=== PATIENT | female | born 1960 | race Caucasian/White ===

== ENCOUNTER 2016-09-07 12:18 | Inpatient (IN) | payer OTHER, SELFPAY ==
--- NOTE | 2016-09-07 12:54 | ERPHSYRPT ---
- History of Present Illness Time Seen by Provider: 09/07/16 12:47 Source: patient Exam Limitations: no limitations Patient Subjective Stated Complaint: FEVER FOR 3 DAYS Triage Nursing Assessment: FEVER AT HOME FOR 3 DAYS. BODY ACHES. NAUSEA WITH NO VOMITING. NO DIARRHEA. MOIST ORAL MEMBRANES Physician History: The patient is a 56-year-old female with her complaining of increasing shortness of breath for 3 days. She did not receive her influenza vaccine because she is allergic to eggs. Her was diagnosed with influenza A 4 days ago. She also complains of a fever for 3 days. She has a past medical history of COPD, diabetes, hyperlipidemia, and asthma. She used to smoke. Timing/Duration: day(s) (3) Fever Severity: moderate Fever Therapy VP OF TECHNOLOGY: none Associated Symptoms: cough, muscle aches, shortness of breath Allergies/Adverse Reactions: NSAIDS (Non-Steroidal Anti-Inflamma Allergy (Verified 09/07/16 12:28) facial swelling aspirin Adverse Reaction (Verified 09/07/16 12:28) facial swelling egg Adverse Reaction (Verified 09/07/16 12:28) Hives ibuprofen Adverse Reaction (Verified 09/07/16 12:28) facial swelling Home Medications: Pravastatin Sodium 40 mg PO DAILY 05/15/15 [History] Furosemide 20 mg [Lasix 20 mg] 20 mg PO DAILY 03/16/16 [History] Potassium Chloride 8 meq PO DAILY 03/16/16 [History] Albuterol Sulfate [Proair Hfa] 2 puffs PO UD PRN 03/17/16 [History] Insulin Aspart [Novolog Flexpen] 0 unit SQ UD 09/07/16 [History] Insulin Glargine,Hum.rec.anlog [Lantus Solostar] 40 unit SQ QAM 09/07/16 [ History] Hx Tetanus, Diphtheria Vaccination/Date Given: Yes Hx Influenza Vaccination/Date Given: No Hx Pneumococcal Vaccination/Date Given: No Immunizations Up to Date: Yes - Review of Systems Constitutional: Fever Eyes: No Symptoms Ears, Nose, & Throat: Nose Congestion, Throat Pain Respiratory: Cough, Dyspnea Cardiac: No Chest Pain, No Edema, No Syncope Abdominal/Gastrointestinal: No Abdominal Pain, No Nausea, No Vomiting, No Diarrhea Genitourinary Symptoms: No Dysuria Musculoskeletal: No Back Pain, No Neck Pain Skin: No Rash Neurological: No Dizziness, No Focal Weakness, No Sensory Changes Psychological: No Symptoms Endocrine: No Symptoms Hematologic/Lymphatic: No Symptoms Immunological/Allergic: No Symptoms All Other Systems: Reviewed and Negative - Past Medical History Pertinent Past Medical History: Yes Neurological History: Migraines ENT History: No Pertinent History Cardiac History: No Pertinent History, High Cholesterol Respiratory History: Asthma, Pneumonia, Other Endocrine Medical History: Diabetes Type II Musculoskeletal History: Osteoarthritis GI Medical History: No Pertinent History History: No Pertinent History Psycho-Social History: No Pertinent History Female Reproductive Disorders: No Pertinent History Other Medical History: HAS SEASONAL ALLERGIES - Past Surgical History Past Surgical History: Yes Neuro Surgical History: No Pertinent History Cardiac: No Pertinent History Respiratory: Other Gastrointestinal: No Pertinent History Genitourinary: No Pertinent History Musculoskeletal: No Pertinent History Female Surgical History: Section Other Surgical History: csection x2. sinus surgery x5 - Social History Smoking Status: Current every day smoker How long have you smoked: 40 years Exposure to second hand smoke: No Drug Use: none Patient Lives Alone: No - Nursing Vital Signs Nursing Vital Signs: Initial Vital Signs Temperature 102.9 F Temperature Source Oral Pulse Rate 95 Respiratory Rate 18 Blood Pressure [] 132/62 Pain Intensity 0 - Physical Exam General Appearance: mild distress Eye Exam: PERRL/EOMI ENT Exam: nasal congestion, pharyngeal erythema Neck Exam: supple, full range of motion, No meningismus Respiratory Exam: decreased breath sounds, wheezing Cardiovascular/Chest Exam: normal heart sounds, regular rate/rhythm, No murmur, No edema Gastrointestinal/Abdominal Exam: soft, non tender, no distention Pelvic Exam: not done Rectal Exam: not done Extremity Exam: non-tender, normal range of motion, normal inspection, normal capillary refill Neurologic Exam: alert, oriented x 3, cooperative, business test analyst II-XII nml as tested, normal mood/affect, sensation nml, No motor deficits Skin Exam: normal color, warm, dry, No rash SpO2 Interpretation: borderline oxygenation SpO2: 87 Oxygen Delivery: Room Air - Radiology Exams Chest X-ray Interpretation: Teleradiologist Report, Infiltrates (infiltrates/ atelecstasis in lingula and RLL per Dr Buck.) Ordered Tests: Active Orders 24 hr Category Date Time Status IV Insertion STAT Care 09/07/16 12:57 Active Oxygen-ED Only NASAL CANNULA 2 lpm Care 09/07/16 12:57 Active CHEST 2 VIEWS (PA AND LAT) Stat Exams 09/07/16 12:57 Completed CBC W DIFF Stat Lab 09/07/16 13:37 Completed CMP Stat Lab 09/07/16 12:57 Completed Manual Differential NC Stat Lab 09/07/16 13:37 Completed TROPONIN Stat Lab 09/07/16 12:57 Completed Respiratory Nebulizer STAT RT 09/07/16 12:58 Completed Medication Summary Generic Name Dose Route Start Last Admin Trade Name Freq PRN Reason Stop Dose Admin Ceftriaxone Sodium/Dextrose 50 mls @ 100 mls/hr 09/07/16 14:28 09/07/16 14:32 Rocephin 1 Gm-D5w 50 Ml Bag IV 09/07/16 14:57 100 mls/hr STAT ONE Administration Discontinued Medications Generic Name Dose Route Start Last Admin Trade Name Freq PRN Reason Stop Dose Admin Albuterol/Ipratropium 3 ml 09/07/16 12:57 09/07/16 13:24 Duoneb 0.5-3 Mg/3 Ml Neb IH 09/07/16 12:58 3 ml STAT ONE Administration Albuterol/Ipratropium Confirm 09/07/16 13:23 Duoneb 0.5-3 Mg/3 Ml Neb Administered 09/07/16 13:24 Dose 3 ml IH .STK-MED ONE Ceftriaxone Sodium/Dextrose Confirm 09/07/16 14:30 Rocephin 1 Gm-D5w 50 Ml Bag Administered 09/07/16 14:31 Dose 50 mls @ ud IV .STK-MED ONE Methylprednisolone Sodium Succinate 125 mg 09/07/16 12:57 09/07/16 13:06 Solu-Medrol 125 Mg IV 09/07/16 12:58 125 mg STAT ONE Administration Methylprednisolone Sodium Succinate Confirm 09/07/16 13:05 Solu-Medrol 125 Mg Administered 09/07/16 13:06 Dose 125 mg .ROUTE .STK-MED ONE Lab/Rad Data: Laboratory Result Diagrams 09/07/16 13:37 09/07/16 12:57 Laboratory Results 09/07/16 09/07/16 09/07/16 Range/Units 13:37 12:57 12:35 WBC 8.9 (4.0-10.5) K/mm3 RBC 5.79 H (4.1-5.4) M/mm3 Hgb 11.0 L (12.0-16.0) gm/dl Hct 34.7 L (35-47) % MCV 59.9 L (78-100) fl MCH 18.9 L (26-32) pg MCHC 31.7 L (32-36) g/dl RDW 19.9 H (11.5-14.0) % Plt Count 193 (150-450) K/mm3 Segmented Neutrophils 55 (36.0-66.0) % Band Neutrophils 8 H (0.0-2.0) % Lymphocytes (Manual) 25 (24-44) % Monocytes (Manual) 12 (0.0-12.0) % Platelet Estimate NORMAL (NORMAL) Poikilocytosis 1+ Anisocytosis 1+ Ovalocytes 1+ Sodium 138 (136-145) mEq/L Potassium 4.2 (3.5-5.1) mEq/L Chloride 103 (98-107) mEq/L Carbon Dioxide 25.2 (21-32) mEq/L Anion Gap 13.5 (5-15) MEQ/L BUN 13 (9-20) mg/dL Creatinine 0.92 (0.55-1.30) mg/dl Estimated GFR > 60 ML/MIN Glucose 173 H (70-110) MG/DL Calcium 7.9 L (8.5-10.1) mg/dL Total Bilirubin 0.2 (0.2-1.0) mg/dL AST 25 (15-37) U/L ALT 20 (12-78) U/L Alkaline Phosphatase 93 (46-116) U/L Troponin I < 0.017 (0.000-0.056) ng/ml Serum Total Protein 7.1 (6.4-8.2) gm/dL Albumin 3.2 L (3.4-5.0) g/dL Influenza Type A Ag NEGATIVE (NEGATIVE) Influenza Type B Ag NEGATIVE (NEGATIVE) RSV (PCR) NEGATIVE (Negative) - Progress Progress: improved Progress Note: 09/07/16 15:09 Pt is feeling better but O2 sats on RA dropped to 81%. Dr Zamudio consulted and pt to be admitted. Discussed with : Robb (admits) Counseled pt/family regarding: lab results, diagnosis, rad results - Departure Time of Disposition: 14:27 Departure Disposition: Observation Clinical Impression: Infiltrate noted on imaging study, Dyspnea Condition: Stable Critical Care Time: No Referrals: FRANKI FRENCH [Primary Care Provider] - Prescriptions: Azithromycin [Azithromycin 250 mg Pack] 250 mg PO UD #6 tablet
[2016-09-07] MEDS ORDERED: DUONEB 0.5-3 MG/3 ml Neb IH ONE ×2 (12:57→13:23)
[2016-09-07] MEDS ORDERED: solu-MEDROL 125 MG IV ONE (12:57)
[2016-09-07] MEDS ORDERED: solu-MEDROL 125 MG ONE (13:05)
[2016-09-07 13:15] LABS: ALBUMIN 3.2 g/dL (3.4-5.0); ALKALINE PHOSPHATASE 93 U/L (46-116); ANION GAP 13.5 MEQ/L (5-15); BILIRUBIN,TOTAL 0.2 mg/dL (0.2-1.0); BLOOD UREA NITROGEN 13 mg/dL (9-20); CHLORIDE 103 mEq/L (98-107); Carbon Dioxide 25.2 mEq/L (21-32); Glucose 173 MG/DL (70-110); Potassium 4.2 mEq/L (3.5-5.1); SGOT/AST 25 U/L (15-37); SGPT/ALT 20 U/L (12-78); SODIUM 138 mEq/L (136-145); Total Protein 7.1 gm/dL (6.4-8.2)
--- NOTE | 2016-09-07 13:19 | XRAY ---
Indication: Short of breath and chest tightness. Comparison: March 16, 2016. PA/lateral chest demonstrates new lingular and to a lesser degree right lower lobe infiltrates/atelectasis without consolidation or large effusion. Remaining heart and bony thorax unremarkable.
[2016-09-07 13:23] LABS: TROPONIN < 0.017 ng/ml (0.000-0.056)
[2016-09-07 13:40] LABS: Mean Cell Volume 59.9 fl (78-100); Platelet Count 193 K/mm3 (150-450); Red Blood Count 5.79 M/mm3 (4.1-5.4); Red Cell Distribution Width 19.9 % (11.5-14.0); White Blood Count 8.9 K/mm3 (4.0-10.5)
[2016-09-07 13:42] LABS: Mean Corpuscular Hemoglobin 18.9 pg (26-32)
[2016-09-07 14:05] LABS: BAND 8 % (0.0-2.0); Total Cells Counted 100
[2016-09-07 14:06] LABS: ANISOCYTOSIS 1+; Ovalocytes 1+; Platelet Estimate NORMAL (NORMAL); Poikilocytosis 1+
[2016-09-07] MEDS ORDERED: ROCEPHIN 1 Gm-D5w 50 ml Bag** 50 ML IV ONE ×2 (14:28→14:30)
[2016-09-07] MEDS ORDERED: TYLENOL EXTRA STRENGTH 500 MG PO STA (14:57)
[2016-09-07] MEDS ORDERED: TYLENOL EXTRA STRENGTH 500 MG ONE (15:00)
[2016-09-07] MEDS ORDERED: PROVENTIL 2.5 MG/3 ML NEB IH PRN (15:47)
[2016-09-07] MEDS ORDERED: TYLENOL 325 MG PO PRN (15:47)
[2016-09-07] MEDS: Zithromax 500 MG/ 250 ML NaCl Premix 250 ML IV SCH (16:35)
[2016-09-07] MEDS ORDERED: Phenergan 25 MG INJ IV PRN (16:46)
[2016-09-07] MEDS: ENOXAPARIN SODIUM SQ SCH (17:04)
[2016-09-07] MEDS: DUONEB 0.5-3 MG/3 ml Neb IH SCH (17:33)
[2016-09-07] MEDS: solu-MEDROL 125 MG IV SCH ×2 (17:41→23:55)
[2016-09-07] MEDS: NON-FORMULARY ITEM IH SCH (21:24)
[2016-09-07] MEDS: NovoLOG Insulin SQ PRN (21:25)
[2016-09-07] MEDS ORDERED: MEDROL 4 MG MC SCH (22:00)
[2016-09-07] MEDS ORDERED: Cipro 500 MG MC SCH (22:00)
[2016-09-08] MEDS: DUONEB 0.5-3 MG/3 ml Neb IH SCH ×4 (00:38→19:36)
[2016-09-08 05:41] LABS: Mean Cell Volume 59.4 fl (78-100); Platelet Count 179 K/mm3 (150-450); Red Blood Count 5.94 M/mm3 (4.1-5.4); Red Cell Distribution Width 19.9 % (11.5-14.0); White Blood Count 7.8 K/mm3 (4.0-10.5)
[2016-09-08 05:49] LABS: Mean Corpuscular Hemoglobin 18.8 pg (26-32)
[2016-09-08] MEDS: solu-MEDROL 125 MG IV SCH ×3 (06:02→18:44)
[2016-09-08 06:03] LABS: ANION GAP 10.2 MEQ/L (5-15); BLOOD UREA NITROGEN 15 mg/dL (9-20); CHLORIDE 104 mEq/L (98-107); Glucose 212 MG/DL (70-110); Potassium 4.4 mEq/L (3.5-5.1); SODIUM 140 mEq/L (136-145)
[2016-09-08 06:59] LABS: Total Cells Counted 100
[2016-09-08 07:00] LABS: ANISOCYTOSIS 1+; Ovalocytes 1+; Poikilocytosis 1+; Polychromasia 1+
[2016-09-08 07:03] LABS: Platelet Estimate NORMAL (NORMAL)
--- NOTE | 2016-09-08 07:48 | HP ---
HISTORY OF PRESENT ILLNESS: This is a 56 year-old woman who presented to the emergency department. She reports that her recently had influenza A and she started having nausea, headache, high fever and cough two days ago. She also had body ache. She has a history of asthma and chronic obstructive pulmonary disease she reports and reports using Albuterol inhaler as needed. She was brought to the emergency department for increasing shortness of breath. In the emergency department she was found to be hypoxic on room air to 87% and was unable to be weaned off 2 liters of oxygen so she was admitted for further evaluation and treatment. REVIEW OF SYSTEMS: She denies chest pain. She has not had any vomiting today. She feels hungry and would like to eat. She has had a little bit of swelling in her lower legs, had some dry skin over her lower legs. PAST MEDICAL HISTORY: Diabetes mellitus type 2, asthma, chronic obstructive pulmonary disease, obesity, history of sinus polyps, back pain. PAST SURGICAL HISTORY: section x2. Five sinus surgeries. Leg surgery. MEDICATIONS: Albuterol 2 puffs as needed, ciprofloxacin mixed with methylprednisolone crushed and uses a nasal saline to irrigate post sinus surgery, Furosemide 40 mg p.o. daily, NovoLog 15 units before meals if her sugar is above 120, Lantus 40 units subcutaneously q.a.m., potassium chloride 8 mEq p.o. daily, pravastatin 80 mg p.o. daily. ALLERGIES: EGGS, IBUPROFEN, ASPIRIN, NSAIDS. SOCIAL HISTORY: She is and lives with her . She usually smokes one pack per day but has not smoked for the past two days. She denies any alcohol use. FAMILY HISTORY: Her mother is living and has diabetes. Her father is and was an alcoholic and had cirrhosis. PHYSICAL EXAMINATION: VITAL SIGNS: Temperature current 102.1F, temperature max 102.9F, heart rate 94 to 105, respiratory rate 18 to 22, blood pressure 113 to 132 over 54 to 62, weight 110 kg. Oxygen saturation 92% on 2 liters nasal cannula. GENERAL: The patient is a pleasant talkative lady sitting up in bed in no acute distress. CVS: She has a regular rate and rhythm. No murmurs, gallops or rubs. CHEST: She has scattered wheezes throughout, equal breath sounds. No crackles. ABDOMEN: Soft, nontender, nondistended. EXTREMITIES: Trace edema bilaterally, dry skin. No clubbing, cyanosis or edema. LABORATORY DATA AND TESTS: Labs on admission: White blood cell count was 8.9, hemoglobin 11.0, differential was 55% neutrophils, 8% bands. Glucose 173, calcium 7.9, albumen 3.2. Influenza A/B and respiratory syncytial virus were negative. Chest x-ray was read as new lingular and right lower lobe infiltrate. ASSESSMENT AND PLAN: 1) MULTILOBAR PNEUMONIA: She has been started on ceftriaxone and azithromycin and will continue with these. I will check a CBC in the morning. I do not see any blood cultures that have been drawn so will have the blood cultures drawn. Will continue oxygen as needed. 2) CHRONIC OBSTRUCTIVE PULMONARY DISEASE EXACERBATION: She has been started on IV steroid, will continue with antibiotics, steroids and DuoNeb every six hours. 3) DIABETES MELLITUS TYPE 2: Will continue with her home insulin doses, diabetic diet and check hemoglobin A1C. 4) DEEP VENOUS THROMBOSIS PROPHYLAXIS: Will start her on Lovenox 40 mg subcutaneously daily.
[2016-09-08] MEDS: Lantus Insulin SQ SCH (08:05)
--- NOTE | 2016-09-08 09:33 | PCM.NOTE ---
Date and Time: 09/08/16927 Subjective Assessment: She reports that she is starting to feel better and she was able to eat well. She would like to walk a little bit in the hallways. - Review of Systems Constitutional: No Symptoms Eyes: No Symptoms Ears, Nose, & Throat: No Symptoms Respiratory: Cough, Short Of Breath, Wheezing Cardiac: No Symptoms Abdominal/Gastrointestinal: No Symptoms Genitourinary Symptoms: No Symptoms Musculoskeletal: No Symptoms Skin: No Symptoms Objective Exam General Appearance: no apparent distress, alert Neurologic Exam: alert, cooperative, normal mood/affect Skin Exam: normal color, warm, dry, No rash Respiratory Exam: other (scattered wheezes, equal breath sounds, distant breath sounds.) Cardiovascular Exam: regular rate/rhythm, normal heart sounds, No murmur, No friction rub, No gallop Extremity Exam: other (no c/c/e; dry skin) OBJECTIVE DATA Vital Signs: Vital Signs - 24 hr Temp Pulse Resp BP Pulse Ox 09/08/16 07:32 97.9 F 77 20 121/58 98 09/08/16 06:00 67 18 94 L 09/08/16 04:00 98.9 F 70 14 115/60 96 09/08/16 00:41 59 L 18 95 09/08/16 00:00 97.7 F 64 14 111/55 94 L 09/07/16 21:00 98.8 F 78 14 101/54 92 L 09/07/16 20:00 98.8 F 78 14 101/54 92 L 09/07/16 17:36 82 22 93 L 09/07/16 16:00 92 L 09/07/16 15:43 102.1 F 95 H 22 113/54 92 L 09/07/16 15:31 102.1 F 95 H 22 113/54 92 L 09/07/16 15:14 87 L 09/07/16 15:04 94 H 18 129/59 89 L 09/07/16 14:06 95 H 18 132/62 92 L 09/07/16 13:28 88 22 89 L 09/07/16 12:22 102.9 F 105 H 24 153/69 87 L Oxygen-Last 24 hours O2 Percentage 2 Liters = 28% O2 Percentage 2 Liters = 28% O2 Percentage 2 Liters = 28% O2 Percentage 2 Liters = 28% O2 Percentage 2 Liters = 28% O2 Percentage 2 Liters = 28% O2 Percentage 2 Liters = 28% O2 Percentage 2 Liters = 28% O2 Percentage 2 Liters = 28% Pain Assessment - Last Documented Pain Intensity 0 Pain Scale Used FLACC Intake and Output: Intake & Output 09/06/16 09/07/16 09/08/16 09/09/16 06:59 06:59 06:59 06:59 Intake Total 1680 440 Balance 1680 440 Weight 110.677 kg Lab Results: Lab Results-Last 24 Hours 09/07/16 09/08/16 09/08/16 Range/Units 16:42 05:25 05:25 WBC 7.8 (4.0-10.5) K/mm3 RBC 5.94 H (4.1-5.4) M/mm3 Hgb 11.2 L (12.0-16.0) gm/dl Hct 35.3 (35-47) % MCV 59.4 L (78-100) fl MCH 18.8 L (26-32) pg MCHC 31.7 L (32-36) g/dl RDW 19.9 H (11.5-14.0) % Plt Count 179 (150-450) K/mm3 Segmented Neutrophils 81 H (36.0-66.0) % Lymphocytes (Manual) 16 L (24-44) % Monocytes (Manual) 3 (0.0-12.0) % Platelet Estimate NORMAL (NORMAL) Polychromasia 1+ Poikilocytosis 1+ Anisocytosis 1+ Ovalocytes 1+ Sodium 140 (136-145) mEq/L Potassium 4.4 (3.5-5.1) mEq/L Chloride 104 (98-107) mEq/L Carbon Dioxide 30.0 (21-32) mEq/L Anion Gap 10.2 (5-15) MEQ/L BUN 15 (9-20) mg/dL Creatinine 0.77 (0.55-1.30) mg/dl Estimated GFR > 60 ML/MIN Glucose 212 H (70-110) MG/DL Hemoglobin A1c 6.4 H (4.5-6.2) Calcium 8.7 (8.5-10.1) mg/dL Assessment/Plan (1) Pneumonia Current Visit: Yes Status: Acute Qualifiers: Laterality: right Lung location: lower lobe of lung Assessment & Plan: Continue with IV antibiotics, oxygen and breathing treatments. She is slowly improving. Code(s): J18.9 - PNEUMONIA, UNSPECIFIED ORGANISM (2) COPD with acute exacerbation Current Visit: Yes Status: Acute Code(s): J44.1 - CHRONIC OBSTRUCTIVE PULMONARY DISEASE W (ACUTE) EXACERBATION (3) COPD (chronic obstructive pulmonary disease) Current Visit: No Status: Chronic Assessment & Plan: Continue antibiotics and steroids as well as oxygen and breathing treatments. (4) Diabetes type 2, controlled Current Visit: Yes Status: Acute Qualifiers: Diabetes mellitus complication status: without complication Assessment & Plan: Her mcfp blood glucose test was less than 7. Her blood glucoses have been higher here in the hospital most likely due to her infection and the IV steroids. Code(s): E11.9 - TYPE 2 DIABETES MELLITUS WITHOUT COMPLICATIONS (5) Tobacco abuse Current Visit: Yes Status: Acute Assessment & Plan: Patient counseled that she should quit smoking. Code(s): Z72.0 - TOBACCO USE
[2016-09-08] MEDS ORDERED: PNEUMOVAX 23 IM ONE (10:00)
[2016-09-08] MEDS ORDERED: NON-FORMULARY ITEM (Pravastatin Sodium [Pravastatin Sodium] 80 MG) PO SCH (10:00)
[2016-09-08] MEDS ORDERED: INSULIN GLARGINE HUM REC ANLOG 40 UNIT SQ SCH (10:00)
[2016-09-08] MEDS ORDERED: NON-FORMULARY ITEM (Potassium Chloride [Potassium Chloride] 8 MEQ) PO SCH (10:00)
[2016-09-08] MEDS: Lasix 40 MG PO SCH (10:11)
[2016-09-08] MEDS: ZOCOR 20MG PO SCH (10:11)
[2016-09-08] MEDS: Klor Con 10 MEQ PO SCH (10:11)
[2016-09-08] MEDS: ENOXAPARIN SODIUM SQ SCH (10:11)
[2016-09-08] MEDS: ROCEPHIN 1 Gm-D5w 50 ml Bag** 50 ML IV SCH (10:11)
[2016-09-08] MEDS: Zithromax 500 MG/ 250 ML NaCl Premix 250 ML IV SCH (11:11)
[2016-09-08] MEDS: NovoLOG Insulin SQ PRN ×2 (12:35→16:10)
[2016-09-08] MEDS: NON-FORMULARY ITEM IH SCH (22:56)
[2016-09-09] MEDS: solu-MEDROL 125 MG IV SCH ×4 (01:29→18:31)
[2016-09-09] MEDS: DUONEB 0.5-3 MG/3 ml Neb IH SCH ×4 (03:09→19:34)
[2016-09-09] MEDS: NovoLOG Insulin SQ PRN ×3 (08:25→17:02)
[2016-09-09] MEDS: Lantus Insulin SQ SCH (08:26)
--- NOTE | 2016-09-09 09:01 | PCM.NOTE ---
Date and Time: 09/09/16856 Subjective Assessment: She reports she wore oxygen all night but that she has been off this AM and would really like to go home today if she keeps feeling better. Her appetite has been good. She reports she has been able to ambulate in the halls well. - Review of Systems Constitutional: No Symptoms Eyes: No Symptoms Ears, Nose, & Throat: No Symptoms Respiratory: Cough Cardiac: No Symptoms Abdominal/Gastrointestinal: No Symptoms Genitourinary Symptoms: No Symptoms Musculoskeletal: No Symptoms Skin: No Symptoms Objective Exam General Appearance: no apparent distress, alert Neurologic Exam: alert, cooperative, normal mood/affect, other (talkative, smiling) Skin Exam: normal color, warm, dry Respiratory Exam: other (expiratory wheezes at end of exhalation throughout) Cardiovascular Exam: regular rate/rhythm, No murmur, No friction rub, No gallop Gastrointestinal/Abdomen Exam: soft, normal bowel sounds, No tenderness, No distention, No mass Extremity Exam: normal inspection, other (no c/c/e) OBJECTIVE DATA Vital Signs: Vital Signs - 24 hr Temp Pulse Resp BP Pulse Ox 09/09/16 08:00 97.6 F 64 24 180/79 93 L 09/09/16 07:00 71 18 91 L 09/09/16 04:00 16 09/09/16 00:00 98.1 F 67 15 143/65 98 09/08/16 23:55 98.1 F 67 15 143/65 98 09/08/16 20:00 97.8 F 68 15 143/54 96 09/08/16 19:39 66 18 94 L 09/08/16 16:00 19 09/08/16 15:59 98.4 F 65 19 111/51 97 09/08/16 12:00 76 20 87 L 09/08/16 11:56 98.3 F 70 21 106/53 96 Oxygen-Last 24 hours O2 Percentage 2 Liters = 28% O2 Percentage 2 Liters = 28% O2 Percentage 2 Liters = 28% O2 Percentage 2 Liters = 28% Pain Assessment - Last Documented Pain Intensity 0 Pain Scale Used 0-10 Pain Scale Intake and Output: Intake & Output 09/07/16 09/08/16 09/09/16 09/10/16 06:59 06:59 06:59 06:59 Intake Total 1680 2250 Balance 1680 2250 Weight 110.677 kg Lab Results: Accuchecks Date 09/09/16 Date 09/08/16 Date 09/08/16 Time 07:30 Time 16:30 Time 11:30 Accucheck Value: 164 Accucheck Value: 215 Accucheck Value: 290 Assessment/Plan (1) Pneumonia Current Visit: Yes Status: Acute Qualifiers: Laterality: right Lung location: lower lobe of lung Assessment & Plan: Continue IV antibiotics. Code(s): J18.9 - PNEUMONIA, UNSPECIFIED ORGANISM (2) COPD with acute exacerbation Current Visit: Yes Status: Acute Assessment & Plan: Continue with IV steroids and breathing treatments. Code(s): J44.1 - CHRONIC OBSTRUCTIVE PULMONARY DISEASE W (ACUTE) EXACERBATION (3) COPD (chronic obstructive pulmonary disease) Current Visit: No Status: Chronic (4) Diabetes type 2, controlled Current Visit: Yes Status: Acute Qualifiers: Diabetes mellitus complication status: without complication Assessment & Plan: Her blood glucoses are running higher most likely due to steroids as her hgb A1C was <7.0. Code(s): E11.9 - TYPE 2 DIABETES MELLITUS WITHOUT COMPLICATIONS (5) Tobacco abuse Current Visit: Yes Status: Acute Assessment & Plan: Patient counseled that she needs to quit. Code(s): Z72.0 - TOBACCO USE
[2016-09-09] MEDS: Lasix 40 MG PO SCH (09:31)
[2016-09-09] MEDS: ZOCOR 20MG PO SCH (09:31)
[2016-09-09] MEDS: Klor Con 10 MEQ PO SCH (09:31)
[2016-09-09] MEDS: ENOXAPARIN SODIUM SQ SCH (09:32)
[2016-09-09] MEDS: ROCEPHIN 1 Gm-D5w 50 ml Bag** 50 ML IV SCH (09:32)
[2016-09-09] MEDS: Sodium Chloride 0.9% 10 ML FLUSH Syringe IV PRN ×2 (10:00→11:00)
[2016-09-09] MEDS: Zithromax 500 MG/ 250 ML NaCl Premix 250 ML IV SCH (10:16)
[2016-09-09] MEDS: NON-FORMULARY ITEM IH SCH (22:37)
[2016-09-09] MEDS: Sodium Chloride 0.9% 10 ML FLUSH Syringe IV SCH (22:39)
[2016-09-10] MEDS: solu-MEDROL 125 MG IV SCH ×2 (00:58→06:27)
[2016-09-10] MEDS: DUONEB 0.5-3 MG/3 ml Neb IH SCH ×2 (01:53→06:59)
[2016-09-10] MEDS: Sodium Chloride 0.9% 10 ML FLUSH Syringe IV SCH (06:28)
[2016-09-10 07:35] VITALS: O2SAT 94
[2016-09-10] MEDS: Lantus Insulin SQ SCH (08:01)
[2016-09-10] MEDS: NovoLOG Insulin SQ PRN ×2 (08:02→11:27)
[2016-09-10] MEDS: ENOXAPARIN SODIUM SQ SCH (08:02)
[2016-09-10] MEDS: Lasix 40 MG PO SCH (08:03)
[2016-09-10] MEDS: Klor Con 10 MEQ PO SCH (08:03)
[2016-09-10] MEDS: ZOCOR 20MG PO SCH (08:03)
[2016-09-10 11:24] VITALS: BP 138/65; PULSE 58
--- NOTE | 2016-09-10 11:49 | PCM.DS ---
Discharge Summary Date of Admission: 09/07/16 15:26 Admitting Physician: SARI DUMONT Primary Care Provider: SARI DUMONT Allergies Allergies NSAIDS (Non-Steroidal Anti-Inflamma Allergy (Verified 09/07/16 12:28) facial swelling aspirin Adverse Reaction (Verified 09/07/16 12:28) facial swelling egg Adverse Reaction (Verified 09/07/16 12:28) Hives ibuprofen Adverse Reaction (Verified 09/07/16 12:28) facial swelling Hospital Summary - Hospital Course Hospital Course: patient admitted with pneumonia and copd exacerbation, doing much better today at this time. no problems or concerns at this time. - Vitals & Intake/Output Vital Signs: Vital Signs Temperature 97.8 F 09/10/16 11:23 Pulse Rate 58 L 09/10/16 11:23 Respiratory Rate 20 09/10/16 11:23 Blood Pressure 138/65 09/10/16 11:23 O2 Sat by Pulse Oximetry 94 L 09/10/16 11:23 Oxygen-Last Documented O2 Percentage 2 Liters = 28% Intake & Output: Intake & Output 09/07/16 09/08/16 09/09/16 09/10/16 11:59 11:59 11:59 11:59 Intake Total 2120 2290 2600 Balance 2120 2290 2600 Weight 110.677 kg 110.677 kg - Lab Result Diagrams: 09/08/16 05:25 09/08/16 05:25 Lab Results-Last 24 Hrs: Accuchecks Date 09/10/16 Date 09/09/16 Time 16:30 Accucheck Value: 213 Accucheck Value: 192 Micro Results-Entire Visit: Microbiology 09/07/16 17:30 Blood Culture - Preliminary Blood NO GROWTH TO DATE Accuchecks Date 09/10/16 Date 09/09/16 Time 16:30 Accucheck Value: 213 Accucheck Value: 192 - Procedures and Test Procedures and Tests throughout Hospitalization: Therapy Orders & Screens 09/07/16 15:56 RT Screen per Nursing Assess ONCE Comment: Protocol Order Physician Instructions: Greater than 3 points order RT Admission Screen Reason For Exam: Triggered on Admission Diagnosis: Shortness of Breath Diagnosis: Shortness of Breath Pneumonia: No Home O2: No Asthma: Yes CHF: No Home CPAP/BIPAP: No Home Nebs/MDI: Yes Total Points: 9 Smoking Cessation Education ONCE Comment: Diagnosis: Shortness of Breath Smoking Status: Current every day smoker How long have you smoked: 40 years Have you smoked in the past 12 months: Yes Approximately how many cigarettes per day: 20 Do you dip or chew tobacco: No 09/07/16 17:35 Respiratory Nebulizer Comment: ALBUTEROL Q4PRN Diagnosis: Shortness of Breath 09/07/16 19:00 Respiratory Nebulizer Q6H Comment: DUONEB Q6 Diagnosis: Shortness of Breath Discharge Exam General Appearance: no apparent distress, alert Respiratory Exam: normal breath sounds, lungs clear, No respiratory distress Cardiovascular Exam: regular rate/rhythm, normal heart sounds Extremity Exam: normal inspection, normal range of motion Final Diagnosis/Problem List - Final Discharge Diagnosis/Problem (1) COPD with acute exacerbation Current Visit: Yes Status: Acute Assessment & Plan: get an rx for nebulizer machine, steroids and antibiotics (2) Pneumonia Current Visit: Yes Status: Acute - Discharge Disposition: Home, Self-Care Condition: Good Prescriptions: New Amoxicillin/Potassium Clav [Augmentin 500-125 Tablet] 500 mg PO TID #30 tablet Albuterol/Ipratropium 3ml Neb* [DUONEB 0.5-3 MG/3 ml Neb] 3 ml IH Q6HRT # 100 ampul.neb Prednisone 20 mg [Deltasone 20 mg] 20 mg PO UD #18 tablet Nebulizer Accessories [Nebulizer] 1 each UD #1 kit Continue Pravastatin Sodium 80 mg PO DAILY Furosemide 20 mg [Lasix 20 mg] 40 mg PO DAILY Potassium Chloride 8 meq PO DAILY Albuterol Sulfate [Proair Hfa] 2 puffs PO UD PRN PRN Reason: Shortness Of Breath Insulin Aspart [Novolog Flexpen] 0 unit SQ UD Insulin Glargine,Hum.rec.anlog [Lantus Solostar] 40 unit SQ QAM Methylprednisolone 4 mg [Medrol 4 mg] 8 mg IH DAILY Ciprofloxacin HCl 500 mg [Cipro 500 MG] 1,000 mg IH DAILY Instructions: Pneumonia -- Adult, Quit Smoking Follow up with: FRANKI FRENCH [Nurse Practioner] - Forms: Patient Portal Information
== END 2016-09-10 12:05 | disposition home or self-care (01) | DRG 190 ==
LOC: ED 12:18 → MED SURG 15:26 → OBSVTOIN 15:26
PROVIDERS: ADMIT Internal Medicine; ATTEND Internal Medicine
DX: J44.1 Chronic obstructive pulmonary disease with (acute) exacerbation (principal); J18.9 Pneumonia, unspecified organism; E11.9 Type 2 diabetes mellitus without complications; E78.5 Hyperlipidemia, unspecified; J45.909 Unspecified asthma, uncomplicated; F17.200 Nicotine dependence, unspecified, uncomplicated
CPT/HCPCS: 36000; 36415; 71020; 80048; 80053; 82962; 83036; 84484; 85025; 87040; 87631; 90732; 94640; 94760; 96365; 96374; 99285; J0456; J0696; J1650; J2930; A9270-GY

== ENCOUNTER 2017-01-22 13:12 | Observation (INO) | payer OTHER, SELFPAY ==
[2017-01-22] MEDS ORDERED: Sodium Chloride 0.9% 1000 ML 1,000 ML IV SCH (13:15)
[2017-01-22 13:23] LABS: Mean Cell Volume 60.6 fl (78-100); Mean Corpuscular Hemoglobin 19.5 pg (26-32); Mean Platelet Volume 10.7 fl (6-9.5); Platelet Count 277 K/mm3 (150-450); Red Blood Count 6.65 M/mm3 (4.1-5.4)
[2017-01-22 13:32] LABS: Collection Type VOID; VBG BASE EXCESS 5.5 (-2.0-2.0); VBG HCO3- 31.6 meq/L (22-28); VBG HEMOGLOBIN 13.6; VBG O2 SATURATION 71.9 (95-100); VBG POTASSIUM 4.4 (3.5-5.1); VBG pH 7.4 (7.32-7.42)
[2017-01-22 13:33] LABS: ADD URINE CULTURE? YES (NO); Bacteria FEW /HPF (NEGATIVE); Bilirubin NEGATIVE (NEGATIVE); COMPLETE URINE MICROSCOPIC? YES; Glucose NEGATIVE (NEGATIVE); Leukocyte Esterase 2+ (NEGATIVE); VBG CARBOXYHEMOGLOBIN 16.9 % T HGB (0.0-6.9)
[2017-01-22 13:40] LABS: ALBUMIN 4.2 g/dL (3.4-5.0); ALKALINE PHOSPHATASE 97 U/L (46-116); ANION GAP 13.6 MEQ/L (5-15); BLOOD UREA NITROGEN 22 mg/dL (9-20); CHLORIDE 103 mEq/L (98-107); Carbon Dioxide 30.3 mEq/L (21-32); Glucose 100 MG/DL (70-110); Potassium 4.6 mEq/L (3.5-5.1); SGOT/AST 24 U/L (15-37); SGPT/ALT 30 U/L (12-78); SODIUM 142 mEq/L (136-145); Total Protein 7.7 gm/dL (6.4-8.2)
[2017-01-22 13:40] LABS: MAGNESIUM 2.2 mg/dL (1.8-2.4)
--- NOTE | 2017-01-22 13:46 | ERPHSYRPT ---
- History of Present Illness Time Seen by Provider: 01/22/17 13:14 Source: patient, family (), EMS Patient Subjective Stated Complaint: syncopal episode Triage Nursing Assessment: states chronic leg numbness. denies recent fall. states had syncopal episode today and was down on floor for 30 min 'while my daughters were sleeping'. denies pain at present. alert/oriented. chronic cough with clear/yellow sputum. 3+ pitting edema to lower extrem (chronic per pt) Physician History: CC: legs gave out Hx: 56 y/o patient of Dr Dumont was at her home. She has chronic numbness in legs. She has diabetes. She has some increased swelling. She was at home and got up and felt weakness in the legs and fell to the floor without injury. No witnessed seizure activity. Was somewhat disoriented when found. This occurred around 12:30 PM. No headache or chest pain. No hx of this in the past. She has a remote hx of cancer. She has chronic back pain but no fever or chills. No focal weakness. The numbness in her legs is similar to prior. She smokes but only had about 5 cigarettes since 8:30AM. EMS did not not smoke in the house. Accu check was ok. Timing/Duration: today Severity: moderate Allergies/Adverse Reactions: NSAIDS (Non-Steroidal Anti-Inflamma Allergy (Verified 01/22/17 13:21) facial swelling aspirin Adverse Reaction (Verified 01/22/17 13:21) facial swelling egg Adverse Reaction (Verified 01/22/17 13:21) Hives ibuprofen Adverse Reaction (Verified 01/22/17 13:21) facial swelling Home Medications: Furosemide 20 mg [Lasix 20 mg] 20 mg PO DAILY 03/16/16 [History] Potassium Chloride 8 meq PO DAILY 03/16/16 [History] Albuterol Sulfate [Proair Hfa] 2 puffs PO UD PRN 03/17/16 [History] Insulin Aspart [Novolog Flexpen] 0 unit SQ UD 09/07/16 [History] Insulin Glargine,Hum.rec.anlog [Lantus Solostar] 40 unit SQ QAM 09/07/16 [ History] Rosuvastatin Calcium 20 mg PO DAILY 01/22/17 [History] Hx Tetanus, Diphtheria Vaccination/Date Given: Yes Hx Influenza Vaccination/Date Given: No Hx Pneumococcal Vaccination/Date Given: Yes Immunizations Up to Date: Yes - Review of Systems Constitutional: Malaise, No Fever, No Chills Eyes: No Symptoms Ears, Nose, & Throat: No Symptoms Respiratory: Cough, No Dyspnea Cardiac: Edema, Syncope (pre), No Chest Pain Abdominal/Gastrointestinal: No Abdominal Pain, No Nausea, No Vomiting, No Diarrhea Genitourinary Symptoms: No Dysuria Musculoskeletal: Back Pain (chronic), No Neck Pain, No Injury Skin: No Rash Neurological: Parasthesia (chronic legs), No Focal Weakness, No Headache All Other Systems: Reviewed and Negative - Past Medical History Pertinent Past Medical History: Yes Neurological History: Migraines ENT History: No Pertinent History Cardiac History: No Pertinent History, High Cholesterol Respiratory History: Asthma, Pneumonia, Other Endocrine Medical History: Diabetes Type II Musculoskeletal History: Osteoarthritis GI Medical History: No Pertinent History History: No Pertinent History Psycho-Social History: No Pertinent History Female Reproductive Disorders: No Pertinent History Other Medical History: HAS SEASONAL ALLERGIES - Past Surgical History Past Surgical History: Yes Neuro Surgical History: No Pertinent History Cardiac: No Pertinent History Respiratory: Other Gastrointestinal: No Pertinent History Genitourinary: No Pertinent History Musculoskeletal: No Pertinent History Female Surgical History: Section Other Surgical History: csection x2. sinus surgery x6 - Social History Smoking Status: Current every day smoker How long have you smoked: 40 years Exposure to second hand smoke: No Drug Use: none Patient Lives Alone: No (lives at home with family) - Nursing Vital Signs Nursing Vital Signs: Initial Vital Signs Temperature 97.7 F 01/22/17 13:14 Pulse Rate 69 01/22/17 13:14 Respiratory Rate 18 01/22/17 13:14 Blood Pressure 160/78 01/22/17 13:14 O2 Sat by Pulse Oximetry 98 01/22/17 13:14 Pain Scale Pain Intensity 0 - Physical Exam General Appearance: alert Eye Exam: PERRL/EOMI Ears, Nose, Throat Exam: normal ENT inspection, moist mucous membranes Neck Exam: normal inspection, non-tender, supple, No midline tenderness Respiratory Exam: normal breath sounds, lungs clear Cardiovascular Exam: regular rate/rhythm Gastrointestinal/Abdomen Exam: soft, No tenderness, No distention Back Exam: normal inspection, No vertebral tenderness Extremity Exam: pedal edema (2-3+), No calf tenderness Neurologic Exam: alert, oriented x 3, cooperative, sensation nml, No motor deficits Skin Exam: warm, dry, No rash SpO2 Interpretation: normal SpO2: 98 Oxygen Delivery: Room Air - Course Nursing assessment & vital signs reviewed: Yes EKG Interpreted by Me: RATE (60), Sinus Rhythm, NORMAL AXIS, NORMAL INTERVALS ( QTc 458), Right Bundle Branch Block - Radiology Exams cxr X-ray Interpretation: Reviewed by me (CM, prominent lung markings, mild RLL infiltrate) - CT Exams brain CT Interpretation: Negative, Tele-radiologist Report Ordered Tests: Active Orders 24 hr Category Date Time Status Guest Room Inspector STAT Care 01/22/17 13:45 Active Clean Catch Urine Specimen STAT Care 01/22/17 13:14 Active EKG-ER Only STAT Care 01/22/17 13:14 Active IV Insertion STAT Care 01/22/17 13:14 Active Oxygen-ED Only NON-REBREATHER 100% Care 01/22/17 13:38 Active CHEST 1 VIEW (PORTABLE) Stat Exams 01/22/17 13:14 Taken HEAD WITHOUT CONTRAST [CT] Stat Exams 01/22/17 13:36 Taken BLOOD CULTURE Stat Lab 01/22/17 13:10 Received CBC W DIFF Stat Lab 01/22/17 13:14 Completed CK-Creatinine Phosphokinase Stat Lab 01/22/17 13:15 Completed CMP Stat Lab 01/22/17 13:14 Completed CULTURE,URINE Stat Lab 01/22/17 13:20 Received Lactic Acid Stat Lab 01/22/17 13:20 Completed MAGNESIUM Stat Lab 01/22/17 13:15 Completed Manual Differential NC Stat Lab 01/22/17 13:14 Completed NT PRO BNP Stat Lab 01/22/17 13:15 Completed TROPONIN Q3H Lab 01/22/17 13:15 Completed TROPONIN Q3H Lab 01/22/17 16:45 Ordered TROPONIN Q3H Lab 01/22/17 19:45 Ordered TROPONIN Q3H Lab 01/22/17 22:45 Ordered TROPONIN Q3H Lab 01/23/17 01:45 Ordered UA W/ MICROSCOPIC Stat Lab 01/22/17 13:20 Completed Urine Triage Profile Stat Lab 01/22/17 13:15 Completed VENOUS BLOOD GAS Urgent Lab 01/22/17 13:20 Completed Medication Summary Generic Name Dose Route Start Last Admin Trade Name Freq PRN Reason Stop Dose Admin Sodium Chloride 1,000 mls @ 100 mls/hr 01/22/17 13:15 01/22/17 13:27 Sodium Chloride 0.9% 1000 Ml IV 02/21/17 13:14 100 mls/hr .Q10H ABDOUL Administration Discontinued Medications Generic Name Dose Route Start Last Admin Trade Name Torie PRN Reason Stop Dose Admin Ceftriaxone Sodium/Dextrose 1 g in 50 mls @ 100 mls/hr 01/22/17 13:49 14:32 Rocephin 1 Gm-D5w 50 Ml Bag IV 01/22/17 14:18 100 mls/hr STAT STA Administration Ceftriaxone Sodium/Dextrose Confirm 01/22/17 14:31 Rocephin 1 Gm-D5w 50 Ml Bag Administered 01/22/17 14:32 Dose 1 g in 50 mls @ ud IV .K-MED ONE Lab/Rad Data: Laboratory Result Diagrams 01/22/17 13:14 01/22/17 13:14 Laboratory Results 01/22/17 01/22/17 01/22/17 Range/Units 13:20 13:20 13:20 WBC (4.0-10.5) K/mm3 RBC (4.1-5.4) M/mm3 Hgb (12.0-16.0) gm/dl Hct (35-47) % MCV (78-100) fl MCH (26-32) pg MCHC (32-36) g/dl RDW (11.5-14.0) % Plt Count (150-450) K/mm3 MPV (6-9.5) fl Segmented Neutrophils (36.0-66.0) % Band Neutrophils (0.0-2.0) % Lymphocytes (Manual) (24-44) % Monocytes (Manual) (0.0-12.0) % Differential Comment Platelet Estimate (NORMAL) Poikilocytosis Anisocytosis VBG pH 7.40 (7.32-7.42) VBG pCO2 at Pat Temp 51 (42-55) mm/Hg VBG pO2 at Pat Temp 30 (25-40) mm/Hg VBG HCO3 31.6 H* (22-28) meq/L VBG O2 Sat (Adonis) 71.9 L (95-100) VBG Base Excess 5.5 H (-2.0-2.0) VBG Hemoglobin 13.6 VBG Carboxyhemoglobin 16.9 H* (0.0-6.9) % T HGB POC Potassium 4.4 (3.5-5.1) Sodium (136-145) mEq/L Potassium (3.5-5.1) mEq/L Chloride (98-107) mEq/L Carbon Dioxide (21-32) mEq/L Anion Gap (5-15) MEQ/L BUN (9-20) mg/dL Creatinine (0.55-1.30) mg/dl Estimated GFR ML/MIN Glucose (70-110) MG/DL Lactic Acid 1.6 (0.4-2.0) Calcium (8.5-10.1) mg/dL Magnesium (1.8-2.4) mg/dL Total Bilirubin (0.2-1.0) mg/dL AST (15-37) U/L ALT (12-78) U/L Alkaline Phosphatase (46-116) U/L Creatine Kinase (26-192) U/L Troponin I (0.000-0.056) ng/ml NT-Pro-B Natriuret Pep (0-125) pg/ml Serum Total Protein (6.4-8.2) gm/dL Albumin (3.4-5.0) g/dL Ur Collection Type VOID Urine Color YELLOW (YELLOW) Urine Appearance CLEAR (CLEAR) Urine pH 7.0 (5-6) Ur Specific [place] 1.005 (1.005-1.025) Urine Protein NEGATIVE (Negative) Urine Ketones NEGATIVE (NEGATIVE) Urine Blood 5-10 (0-5) Hao/ul Urine Nitrite NEGATIVE (NEGATIVE) Urine Bilirubin NEGATIVE (NEGATIVE) Urine Urobilinogen NORMAL (0-1) mg/dL Ur Leukocyte Esterase 2+ (NEGATIVE) Urine Microscopic RBC 0-2 (0-2) /HPF Urine Microscopic WBC 10-15 (0-5) /HPF Urine Bacteria FEW (NEGATIVE) /HPF Urine Glucose NEGATIVE (NEGATIVE) mg/dL Urine Opiates Level (NEGATIVE) Ur Methadone (NEGATIVE) Urine Barbiturates (NEGATIVE) Ur Phencyclidine (PCP) (NEGATIVE) Urine Amphetamine (NEGATIVE) U Benzodiazepine Level (NEGATIVE) Urine Cocaine (NEGATIVE) Urine Marijuana (THC) (NEGATIVE) Specimen Received 01/22/17 1320 01/22/17 01/22/1701/22/17 Range/Units 13:15 13:15 13:15 WBC (4.0-10.5) K/mm3 RBC (4.1-5.4) M/mm3 Hgb (12.0-16.0) gm/dl Hct (35-47) % MCV (78-100) fl MCH (26-32) pg MCHC (32-36) g/dl RDW (11.5-14.0) % Plt Count (150-450) K/mm3 MPV (6-9.5) fl Segmented Neutrophils (36.0-66.0) % Band Neutrophils (0.0-2.0) % Lymphocytes (Manual) (24-44) % Monocytes (Manual) (0.0-12.0) % Differential Comment Platelet Estimate (NORMAL) Poikilocytosis Anisocytosis VBG pH (7.32-7.42) VBG pCO2 at Pat Temp (42-55) mm/Hg VBG pO2 at Pat Temp (25-40) mm/Hg VBG HCO3 (22-28) meq/L VBG O2 Sat (Adonis) (95-100) VBG Base Excess (-2.0-2.0) VBG Hemoglobin VBG Carboxyhemoglobin (0.0-6.9) % T HGB POC Potassium (3.5-5.1) Sodium (136-145) mEq/L Potassium (3.5-5.1) mEq/L Chloride (98-107) mEq/L Carbon Dioxide (21-32) mEq/L Anion Gap (5-15) MEQ/L BUN (9-20) mg/dL Creatinine (0.55-1.30) mg/dl Estimated GFR ML/MIN Glucose (70-110) MG/DL Lactic Acid (0.4-2.0) Calcium (8.5-10.1) mg/dL Magnesium 2.2 (1.8-2.4) mg/dL Total Bilirubin (0.2-1.0) mg/dL AST (15-37) U/L ALT (12-78) U/L Alkaline Phosphatase (46-116) U/L Creatine Kinase 70 (26-192) U/L Troponin I < 0.017 (0.000-0.056) ng/ml NT-Pro-B Natriuret Pep (0-125) pg/ml Serum Total Protein (6.4-8.2) gm/dL Albumin (3.4-5.0) g/dL Ur Collection Type Urine Color (YELLOW) Urine Appearance (CLEAR) Urine pH (5-6) Ur Specific [place] (1.005-1.025) Urine Protein (Negative) Urine Ketones (NEGATIVE) Urine Blood (0-5) Hao/ul Urine Nitrite (NEGATIVE) Urine Bilirubin (NEGATIVE) Urine Urobilinogen (0-1) mg/dL Ur Leukocyte Esterase (NEGATIVE) Urine Microscopic RBC (0-2) /HPF Urine Microscopic WBC (0-5) /HPF Urine Bacteria (NEGATIVE) /HPF Urine Glucose (NEGATIVE) mg/dL Urine Opiates Level NEG. (NEGATIVE) Ur Methadone NEG. (NEGATIVE) Urine Barbiturates NEG. (NEGATIVE) Ur Phencyclidine (PCP) NEG. (NEGATIVE) Urine Amphetamine NEG. (NEGATIVE) U Benzodiazepine Level NEG. (NEGATIVE) Urine Cocaine NEG. (NEGATIVE) Urine Marijuana (THC) NEG. (NEGATIVE) Specimen Received 01/22/17 01/22/17 01/22/17 Range/Units 13:15 13:14 13:14 WBC 10.0 (4.0-10.5) K/mm3 RBC 6.65 H* (4.1-5.4) M/mm3 Hgb 13.0 (12.0-16.0) gm/dl Hct 40.3 (35-47) % MCV 60.6 L (78-100) fl MCH 19.5 L (26-32) pg MCHC 32.3 (32-36) g/dl RDW 20.0 H (11.5-14.0) % Plt Count 277 (150-450) K/mm3 MPV 10.7 H (6-9.5) fl Segmented Neutrophils 67 H (36.0-66.0) % Band Neutrophils 1 (0.0-2.0) % Lymphocytes (Manual) 25 (24-44) % Monocytes (Manual) 7 (0.0-12.0) % Differential Comment ABNORMAL Platelet Estimate NORMAL (NORMAL) Poikilocytosis 1+ Anisocytosis 2+ VBG pH (7.32-7.42) VBG pCO2 at Pat Temp (42-55) mm/Hg VBG pO2 at Pat Temp (25-40) mm/Hg VBG HCO3 (22-28) meq/L VBG O2 Sat (Adonis) (95-100) VBG Base Excess (-2.0-2.0) VBG Hemoglobin VBG Carboxyhemoglobin (0.0-6.9) % T HGB POC Potassium (3.5-5.1) Sodium 142 (136-145) mEq/L Potassium 4.6 (3.5-5.1) mEq/L Chloride 103 (98-107) mEq/L Carbon Dioxide 30.3 (21-32) mEq/L Anion Gap 13.6 (5-15) MEQ/L BUN 22 H (9-20) mg/dL Creatinine 0.76 (0.55-1.30) mg/dl Estimated GFR > 60 ML/MIN Glucose 100 (70-110) MG/DL Lactic Acid (0.4-2.0) Calcium 9.6 (8.5-10.1) mg/dL Magnesium (1.8-2.4) mg/dL Total Bilirubin 0.50 (0.2-1.0) mg/dL AST 24 (15-37) U/L ALT 30 (12-78) U/L Alkaline Phosphatase 97 (46-116) U/L Creatine Kinase (26-192) U/L Troponin I (0.000-0.056) ng/ml NT-Pro-B Natriuret Pep 32 (0-125) pg/ml Serum Total Protein 7.7 (6.4-8.2) gm/dL Albumin 4.2 (3.4-5.0) g/dL Ur Collection Type Urine Color (YELLOW) Urine Appearance (CLEAR) Urine pH (5-6) Ur Specific [place] (1.005-1.025) Urine Protein (Negative) Urine Ketones (NEGATIVE) Urine Blood (0-5) Hao/ul Urine Nitrite (NEGATIVE) Urine Bilirubin (NEGATIVE) Urine Urobilinogen (0-1) mg/dL Ur Leukocyte Esterase (NEGATIVE) Urine Microscopic RBC (0-2) /HPF Urine Microscopic WBC (0-5) /HPF Urine Bacteria (NEGATIVE) /HPF Urine Glucose (NEGATIVE) mg/dL Urine Opiates Level (NEGATIVE) Ur Methadone (NEGATIVE) Urine Barbiturates (NEGATIVE) Ur Phencyclidine (PCP) (NEGATIVE) Urine Amphetamine (NEGATIVE) U Benzodiazepine Level (NEGATIVE) Urine Cocaine (NEGATIVE) Urine Marijuana (THC) (NEGATIVE) Specimen Received - Progress Progress Note: 01/22/17 13:46 Neuro exam is nonfocal. Normal rectal tone. 1+ bilateral MSR's patella. ROM equal. Sensation grossly intact. CO elevated. NRB oxygen applied. Advised family to have house checked and no pets or family should be in the house until checked and cleared. FD went to check out the house. 01/22/17 14:35 CT brain: stella 2:30 PM 01/22/2017: No comps. Marked B/L pansinusitis. O/W negative CT head. House was checked per FD and no CO. Pt denies suicidality. She does smoke? Monitor CO from FD shows current CO 13%. Paged Dr Muñoz for [facility] for admission. Counseled pt/family regarding: lab results, diagnosis, need for follow-up, rad results, smoking cessation - Departure Time of Disposition: 14:57 Departure Disposition: Observation (TEle) Clinical Impression: Diabetes type 2, controlled, Carbon monoxide poisoning, UTI (urinary tract infection) Condition: Fair Critical Care Time: Yes Critical Care Time(excluding separately billable procedures): 30-74 minutes Referrals: SARI DUMONT [Primary Care Provider] -
[2017-01-22] MEDS ORDERED: ROCEPHIN 1 Gm-D5w 50 ml Bag** 1 G/50 ML IVPB IV STA (13:49)
[2017-01-22 14:03] LABS: BAND 1 % (0.0-2.0); Total Cells Counted 100
[2017-01-22 14:04] LABS: ANISOCYTOSIS 2+; Platelet Estimate NORMAL (NORMAL); Poikilocytosis 1+
[2017-01-22] MEDS ORDERED: ROCEPHIN 1 Gm-D5w 50 ml Bag** 1 G/50 ML IVPB IV ONE (14:31)
[2017-01-22] MEDS ORDERED: TYLENOL 325 MG PO PRN (15:42)
[2017-01-22 17:11] LABS: VBG BASE EXCESS 7.4 (-2.0-2.0); VBG CARBOXYHEMOGLOBIN 5.8 % T HGB (0.0-6.9); VBG HCO3- 35.3 meq/L (22-28); VBG HEMOGLOBIN 13.7; VBG O2 SATURATION 30.1 (95-100); VBG pH 7.35 (7.32-7.42)
[2017-01-22] MEDS ORDERED: NovoLOG Insulin SQ PRN (17:57)
--- NOTE | 2017-01-22 21:56 | XRAY ---
Indication: Weakness and dizziness. Syncope. Multiple contiguous axial images obtained through the head without contrast. Comparison: None Normal appearing brain parenchyma, ventricles, and bony calvarium. There is complete opacification of both ethmoid and both frontal sinuses with near-complete opacification of the remaining visualized maxillary and sphenoid sinuses. Mastoid air cells clear. Impression: Pansinusitis. No acute intracranial abnormalities. CTDI 68.15
--- NOTE | 2017-01-22 21:59 | XRAY ---
Indication: Dizziness. Syncope. Comparison: September 07, 2016. Portable chest is clear. Heart is not enlarged for AP portable technique. Bony thorax intact. Impression: Nonacute chest.
[2017-01-22] MEDS: ENOXAPARIN SODIUM SQ SCH (22:59)
[2017-01-22] MEDS: Sodium Chloride 0.9% 1000 ML 1,000 ML IV SCH (23:03)
[2017-01-23] MEDS ORDERED: Ventolin Hfa MDI IH PRN (07:31)
[2017-01-23] MEDS ORDERED: PROVENTIL COMMON CANISTER IH PRN (07:38)
[2017-01-23] MEDS: ENOXAPARIN SODIUM SQ SCH (08:28)
[2017-01-23] MEDS: Sodium Chloride 0.9% 1000 ML 1,000 ML IV SCH (08:30)
[2017-01-23] MEDS ORDERED: DUONEB 0.5-3 MG/3 ml Neb IH ONE (08:39)
[2017-01-23] MEDS: DUONEB 0.5-3 MG/3 ml Neb IH SCH ×3 (08:41→17:23)
--- NOTE | 2017-01-23 08:55 | PCM.HP ---
History of Present Illness - Chief Complaint Chief Complaint: carbon monoxide toxicity; uti; dm2 History of Present Illness: is a 56 year old diabetic female pt of Dr. Zamudio who was admitted through the ER for syncope. She filiberto from seated position yesterday and felt dizzy, legs felt numb, and she collapsed to the floor; she states she could hear but could not respond. Pt estimates this lasted 30-45 min. Family called EMS. ER notes some disorientation afterward. No hx seizures. She does chronically have stocking-foot distribution of numbness. CO was initially elevated to 17 on admission. Fire Dept sent to house and CO check was negative. Pt is the only one who smokes at home. Notes she has been smoking cigars. - Review of Systems Constitutional: Chills (no fever) Cardiac: Chest Pain (x 30 min,2/10, substernal last night) Neurological: Dizziness, Other (as in HPI) Psychological: Depression (intermittently d/t chronic illness), No Suicidal Ideations Endocrine: Other (hyperglycemia (DM)) All Other Systems: Reviewed and Negative Medications & Allergies Home Medications: Home Medication List Furosemide 20 mg [Lasix 20 mg] 20 mg PO DAILY 03/16/16 [History Confirmed 01/22/17] Potassium Chloride 8 meq PO DAILY 03/16/16 [History Confirmed 01/22/17] Albuterol Sulfate [Proair Hfa] 2 puffs PO UD PRN 03/17/16 [History Confirmed ] Insulin Aspart [Novolog Flexpen] 0 unit SQ UD 09/07/16 [History Confirmed ] Insulin Glargine,Hum.rec.anlog [Lantus Solostar] 40 unit SQ QAM 09/07/16 [ History Confirmed 01/22/17] Albuterol/Ipratropium 3ml Neb* [DUONEB 0.5-3 MG/3 ml Neb] 3 ml IH Q6HRT #100 ampul.neb 09/10/16 [Rx Confirmed 01/22/17] Nebulizer Accessories [Nebulizer] 1 each UD #1 kit 09/10/16 [Rx Confirmed ] Multivitamin/Iron/Folic Acid [Centrum Adults Tablet] 1 each PO DAILY 01/22/17 [ History Confirmed 01/22/17] Floral-3 Fatty Acids/Fish Oil [Fish Oil 1,000 mg Capsule] 1 cap PO DAILY [History Confirmed 01/22/17] Rosuvastatin Calcium 20 mg PO DAILY 01/22/17 [History Confirmed 01/22/17] Vitamin B Complex [B Complex] 1 tab PO DAILY 01/22/17 [History Confirmed ] Allergies/Adverse Reactions: Allergies Allergy/AdvReac Type Severity Reaction Status Date / Time NSAIDS (Non-Steroidal Allergy facial Verified 01/22/17 13:21 Anti-Inflamma swelling aspirin AdvReac facial Verified 01/22/17 13:21 swelling ibuprofen AdvReac facial Verified 01/22/17 13:21 swelling - Past Medical History Past Medical History: Yes Neurological History: Migraines ENT History: No Pertinent History Cardiac History: No Pertinent History, High Cholesterol Respiratory History: Asthma, Pneumonia, Other Endocrine Medical History: Diabetes Type II Musculoskelatal History: Osteoarthritis GI Medical History: No Pertinent History History: No Pertinent History Pyscho-Social History: Depression Reproductive Disorders: No Pertinent History Comment: HAS SEASONAL ALLERGIES - Female History Hx Last Menstrual Period: 04/2015 Are you now?: No - Past Surgical History Past Surgical History: Yes Neuro Surgical History: No Pertinent History Cardiac History: No Pertinent History Respiratory Surgery: Other GI Surgical History: No Pertinent History Genitourinary Surgical Hx: No Pertinent History Musculskeletal Surgical Hx: No Pertinent History Female Surgical History: Section Other Surgical History: csection x2. sinus surgery x6 - Social History Smoking Status: Current every day smoker How long have you smoked: 40 years Exposure to second hand smoke: No Alcohol: Rarely Drug Use: none - Physical Exam Vital Signs: Vital Signs - 24 hr Temp Pulse Resp BP Pulse Ox 01/23/17 07:46 18 01/23/17 07:27 97.9 F 62 18 124/56 93 L 01/23/17 04:00 97.9 F 67 17 129/61 93 L 01/22/17 23:57 98.9 F 76 17 114/53 91 L 01/22/17 20:12 72 18 93 L 01/22/17 20:00 77 18 134/63 93 L 01/22/17 18:00 98.5 F 76 18 133/65 94 L 01/22/17 17:49 97 01/22/17 16:39 64 18 100 01/22/17 16:06 98.3 F 60 18 132/66 98 01/22/17 15:42 98.3 F 60 18 132/66 98 01/22/17 15:02 70 18 128/63 100 01/22/17 14:57 98 01/22/17 14:30 60 18 126/72 100 01/22/17 13:14 97.7 F 69 18 160/78 98 Oxygen-Last 24 hours O2 Percentage 100% O2 Percentage 70% O2 Percentage 100% O2 Percentage 100% General Appearance: no apparent distress, obese Neurologic Exam: alert, oriented x 3, cooperative, other (decreased sensation to light touch from ankles distally on both LE.) Eye Exam: eyes nml inspection Neck Exam: normal inspection, non-tender, supple, No lymphadenopathy Respiratory Exam: normal breath sounds, lungs clear, No crackles/rales, No rhonchi, No wheezing Cardiovascular Exam: regular rate/rhythm, normal heart sounds, No murmur Gastrointestinal/Abdomen Exam: soft, normal bowel sounds, No tenderness Extremity Exam: swelling (trace bilat), other (feet w/o lesions) Skin Exam: normal color, warm, dry Results - Labs Lab/Micro Results: Accuchecks Date 01/23/17 Date 01/22/17 Time 07:30 Time 22:00 Accucheck Value: 104 Accucheck Value: 104 Lab Results-Last 24 Hours 01/22/17 01/22/17 01/22/17 Range/Units 17:05 17:19 20:03 VBG pH 7.35 (7.32-7.42) VBG pCO2 at Pat Temp 64 H* (42-55) mm/Hg VBG pO2 at Pat Temp 17 L (25-40) mm/Hg VBG HCO3 35.3 H* (22-28) meq/L VBG O2 Sat (Adonis) 30.1 L (95-100) VBG Base Excess 7.4 H (-2.0-2.0) VBG Hemoglobin 13.7 VBG Carboxyhemoglobin 5.8 (0.0-6.9) % T HGB POC Potassium 4.0 (3.5-5.1) Troponin I < 0.017 < 0.017 (0.000-0.056) ng/ml 01/22/17 01/23/17 Range/Units 22:59 02:11 VBG pH (7.32-7.42) VBG pCO2 at Pat Temp (42-55) mm/Hg VBG pO2 at Pat Temp (25-40) mm/Hg VBG HCO3 (22-28) meq/L VBG O2 Sat (Adonis) (95-100) VBG Base Excess (-2.0-2.0) VBG Hemoglobin VBG Carboxyhemoglobin (0.0-6.9) % T HGB POC Potassium (3.5-5.1) Troponin I < 0.017 < 0.017 (0.000-0.056) ng/ml Accuchecks Date 01/23/17 Date 01/22/17 Time 07:30 Time 22:00 Accucheck Value: 104 Accucheck Value: 104 - Other Procedures and Tests Respiratory Therapy 01/23/17 07:00 Respiratory Nebulizer Q6H Assessment/Plan (1) Syncope Current Visit: Yes Status: Acute Qualifiers: Syncope type: unspecified Qualified Code(s): R55 - Syncope and collapse Assessment & Plan: Workup to be done today. Could have been vagal. Check EEG to r/o seizures as well. Code(s): R55 - SYNCOPE AND COLLAPSE (2) UTI (urinary tract infection) Current Visit: Yes Status: Acute Qualifiers: Urinary tract infection type: acute cystitis Assessment & Plan: Urine culture preliminary results are positive. On IV rocephin. Code(s): N39.0 - URINARY TRACT INFECTION, SITE NOT SPECIFIED (3) Carbon monoxide poisoning Current Visit: Yes Status: Acute Qualifiers: Encounter type: initial encounter Assessment & Plan: She thinks maybe from the cigars, there is not an obvious source. She would like to stop smoking altogether. Code(s): T58.91XA - TOXIC EFFECT OF CARB MONX FROM UNSP SOURCE, ACC, INIT (4) Diabetes type 2, controlled Current Visit: Yes Status: Chronic Qualifiers: Diabetes mellitus complication status: with neurologic complications Diabetes mellitus complication detail: with polyneuropathy Diabetes mellitus mcfp insulin use: with terminal clerk use Qualified Code(s): E11.42 - Type 2 diabetes mellitus with diabetic polyneuropathy; Z79.4 - jail (current) use of insulin Code(s): E11.9 - TYPE 2 DIABETES MELLITUS WITHOUT COMPLICATIONS (5) Tobacco abuse Current Visit: No Status: Acute Code(s): Z72.0 - TOBACCO USE
[2017-01-23] MEDS ORDERED: INSULIN GLARGINE HUM REC ANLOG 40 UNIT SQ SCH (10:00)
[2017-01-23] MEDS ORDERED: NON-FORMULARY ITEM (Potassium Chloride [Potassium Chloride] 8 MEQ) PO SCH (10:00)
[2017-01-23] MEDS ORDERED: ROCEPHIN 1 Gm-D5w 50 ml Bag** 1 G/50 ML IVPB IV SCH (10:00)
[2017-01-23] MEDS ORDERED: Lantus Insulin SQ SCH (10:00)
[2017-01-23] MEDS ORDERED: LASIX 20 MG PO SCH (10:00)
[2017-01-23] MEDS ORDERED: Klor Con 10 MEQ PO SCH (10:00)
[2017-01-23] MEDS ORDERED: NON-FORMULARY ITEM (Rosuvastatin Calcium [Rosuvastatin Calcium] 20 MG) PO SCH (10:00)
[2017-01-23 13:16] VITALS: PULSE 66
--- NOTE | 2017-01-23 15:12 | XRAY ---
Indication: Syncope. Two-dimensional sonogram and color Doppler imaging of the carotid arteries of the neck performed. Comparison: None Examination of the left carotid circulation demonstrates mild heterogeneous plaquing at the level of the bulb. PSV of the CCA is 94 cm/s. PSV of the ICA is 89 cm/s. ICA/CCA ratio is 1.0. Normal antegrade vertebral artery flow. Examination of the right carotid circulation demonstrates mild intimal thickening at the level of the bulb. PSV of the CCA is 64 cm/s. PSV of the ICA is 72 cm/s. ICA/CCA ratio is 1.1. Normal antegrade vertebral artery flow. Impression: Left carotid circulation demonstrates mild heterogeneous plaquing as detailed. Mild right carotid intimal thickening. Velocity measurements and ratios are however negative for hemodynamically significant flow-limiting stenosis.
[2017-01-23 16:05] VITALS: BP 125/68
[2017-01-23 17:31] VITALS: O2SAT 98
[2017-01-23] MEDS ORDERED: ZOCOR 20MG PO SCH (22:00)
--- NOTE | 2017-01-24 09:17 | DS ---
ADMISSION DIAGNOSES: 1) Carbon monoxide poisoning. 2) Syncope. 3) Urinary tract infection. 4) Diabetes. 5) Tobacco abuse. DISCHARGE DIAGNOSES: 1) CARBON MONOXIDE POISONING. 2) SYNCOPE. 3) URINARY TRACT INFECTION. 4) DIABETES. 5) TOBACCO ABUSE. HOSPITAL COURSE: This is a 56 year-old female patient of Dr. Zamudio who came into the emergency room for syncope. She filiberto from a seated position and felt dizzy. Her legs felt numb and she collapsed to the floor. She stated that she could hear but could not respond at that time. She then came into the emergency room and was found to have carbon monoxide elevated to 17. The fire department did check out the house and it was negative for carbon monoxide. The patient is a smoker. There are no other smokers in the home but she does smoke cigars recently. She was also found to have a urinary tract infection with positive culture and while here was on IV Rocephin. She had a carotid Doppler and echocardiogram done. She was on telemetry with no issues. Her carbon monoxide returned down to a more normal level with a nonrebreather initially. She was feeling quite good when I examined her in the morning and by evening was still doing well and wanted to be discharged to home. She will have an outpatient MRI. I will call in an antibiotic for her urinary tract infection. DISPOSITION: Home. DISCHARGE CONDITION: Stable. DISCHARGE PHYSICAL: Her vital signs temperature 98.0F, pulse 66, respirations 18, blood pressure 125/68. Oxygen saturation 98% on room air.
--- NOTE | 2017-01-25 15:20 | ECHO ---
DATE OF PROCEDURE: 01/23/2017 INDICATION: An echocardiogram was requested on this patient with complaints of syncope. ECHOCARDIOGRAM FINDINGS: CHAMBERS: The left atrium is normal size. Left ventricle is normal in size. Left ventricle wall thickness reveals mild concentric left ventricular hypertrophy. Normal left ventricle systolic function. Ejection fraction 63%. Right atrium is normal in size. Right ventricle is normal in size. Aortic root is normal. VALVES: Aortic valve leaflets are not well visualized, however appear trileaflet. Mitral annular calcification. Doppler evaluation of the valves revealed mild mitral regurgitation and mild tricuspid regurgitation. Calculated right ventricular systolic pressure is 15, normal. IMPRESSION: 1) TECHNICALLY FAIR STUDY. 2) MILD CONCENTRIC LEFT VENTRICULAR HYPERTROPHY. 3) NORMAL LEFT VENTRICULAR SYSTOLIC FUNCTION. EJECTION FRACTION 63%. 4) MILD MITRAL REGURGITATION. 5) MILD TRICUSPID REGURGITATION.
== END 2017-01-23 19:15 | disposition home or self-care (01) ==
LOC: ED 13:12 → MED SURG 15:15
PROVIDERS: ADMIT Family Medicine; ATTEND Internal Medicine
DX: T58.91XA Toxic effect of carbon monoxide from unspecified source, accidental (unintentional), initial encounter (principal); Y92.009 Unspecified place in unspecified non-institutional (private) residence as the place of occurrence of the external cause; R55 Syncope and collapse; N39.0 Urinary tract infection, site not specified; E11.42 Type 2 diabetes mellitus with diabetic polyneuropathy; Z79.4 Long term (current) use of insulin; J45.909 Unspecified asthma, uncomplicated; M19.90 Unspecified osteoarthritis, unspecified site; F32.9 Major depressive disorder, single episode, unspecified; Z79.899 Other long term (current) drug therapy; Z72.0 Tobacco use
CPT/HCPCS: 36000; 36415; 70450; 71010; 80053; 80307; 81000; 82550; 82805; 82962; 83036; 83605; 83735; 83880; 84484; 85025; 87040; 87077; 87086; 87186; 93005; 93041; 93268; 93306; 93880; 94640; 94760; 95812; 96360; 96365; 99285; G0378; G0481; J0696; J1650; A9270-GY

== ENCOUNTER 2018-03-17 09:13 | Emergency (ER) | payer OTHER, SELFPAY ==
[2018-03-17] MEDS ORDERED: Lasix 40 MG/4 ML IV ONE (09:27)
[2018-03-17] MEDS ORDERED: solu-MEDROL 125 MG IV ONE (09:27)
[2018-03-17] MEDS ORDERED: DUONEB 0.5-3 MG/3 ml Neb IH ONE ×2 (09:27→09:55)
--- NOTE | 2018-03-17 09:30 | ERPHSYRPT ---
- History of Present Illness Time Seen by Provider: 03/17/18 09:25 Source: patient, family Exam Limitations: no limitations Physician History: The patient is a morbidly obese 57-year-old female with her complaining of worsening shortness of breath for 2 days. She has tried albuterol nebulizers and MDI inhalers without improvement. Her breathing is worse when she lies flat on her back. She has to sleep in a recliner with 4 pillows behind her back. Pt had a fever yesterday. She denies cough. Her past medical history is significant for CHF, COPD, asthma, diabetes, and high cholesterol. Timing/Duration: day(s) (2), gradual onset, worse Activities at Onset: rest Severity of Dyspnea-Max: mild Severity of Dyspnea-Current: mild Possible Cause: occasional episodes Modifying Factors: Improves With: lying down (worse) Associated Symptoms: edema, ankle swelling, No chest pain/discomfort Allergies/Adverse Reactions: NSAIDS (Non-Steroidal Anti-Inflamma Allergy (Verified 03/17/18 09:30) facial swelling aspirin Adverse Reaction (Verified 03/17/18 09:30) facial swelling ibuprofen Adverse Reaction (Verified 03/17/18 09:30) facial swelling Home Medications: Furosemide 20 mg [Lasix 20 mg] 20 mg PO DAILY 03/16/16 [History] Potassium Chloride 8 meq PO DAILY 03/16/16 [History] Albuterol Sulfate [Proair Hfa] 2 puffs PO UD PRN 03/17/16 [History] Insulin Aspart [Novolog Flexpen] 0 unit SQ DAILY PRN PRN 09/07/16 [History] Insulin Glargine,Hum.rec.anlog [Lantus Solostar] 40 unit SQ DAILY PRN PRN [History] Multivitamin/Iron/Folic Acid [Centrum Adults Tablet] 1 each PO DAILY 01/22/17 [ History] Hx Tetanus, Diphtheria Vaccination/Date Given: Yes Hx Influenza Vaccination/Date Given: No Hx Pneumococcal Vaccination/Date Given: Yes - Review of Systems Constitutional: No Fever, No Chills Eyes: No Symptoms Ears, Nose, & Throat: No Symptoms Respiratory: Dyspnea, Dyspnea on Exertion (PINON) Cardiac: Edema Abdominal/Gastrointestinal: No Abdominal Pain, No Nausea, No Vomiting, No Diarrhea Genitourinary Symptoms: No Dysuria Musculoskeletal: No Back Pain, No Neck Pain Skin: No Rash Neurological: No Dizziness, No Focal Weakness, No Sensory Changes Psychological: No Symptoms Endocrine: No Symptoms Hematologic/Lymphatic: No Symptoms Immunological/Allergic: No Symptoms All Other Systems: Reviewed and Negative - Past Medical History Pertinent Past Medical History: Yes Neurological History: Migraines ENT History: No Pertinent History Cardiac History: No Pertinent History, High Cholesterol Respiratory History: Asthma, Pneumonia, Other Endocrine Medical History: Diabetes Type II Musculoskeletal History: Osteoarthritis GI Medical History: No Pertinent History History: No Pertinent History Psycho-Social History: Depression Female Reproductive Disorders: No Pertinent History Other Medical History: HAS SEASONAL ALLERGIES - Past Surgical History Past Surgical History: Yes Neuro Surgical History: No Pertinent History Cardiac: No Pertinent History Respiratory: Other Gastrointestinal: No Pertinent History Genitourinary: No Pertinent History Musculoskeletal: No Pertinent History Female Surgical History: Section Other Surgical History: csection x2. sinus surgery x6 - Social History Smoking Status: Current every day smoker How long have you smoked: 40 years Exposure to second hand smoke: No Drug Use: none Patient Lives Alone: No (lives at home with family) - Nursing Vital Signs Nursing Vital Signs: Initial Vital Signs Temperature 98.1 F 03/17/18 09:14 Pulse Rate 76 03/17/18 09:14 Respiratory Rate 26 H 03/17/18 09:14 Blood Pressure 133/110 03/17/18 09:14 O2 Sat by Pulse Oximetry 92 L 03/17/18 09:14 Pain Scale Pain Intensity 0 - Physical Exam General Appearance: mild distress, obese Eye Exam: PERRL/EOMI Ears, Nose, Throat Exam: hearing grossly normal Neck Exam: normal inspection, supple Respiratory Exam: crackles/rales, No respiratory distress, No diminished breath sounds, No prolonged expirations, No wheezing Cardiovascular/Chest Exam: normal heart sounds, regular rate/rhythm Abdominal/Gastrointestinal Exam: soft, No tenderness, No distention, No mass Rectal Exam: not done Extremity Exam: non-tender, normal range of motion, normal inspection, no calf tenderness, pedal edema (lower leg 3+ edema bilaterally) Neurologic Exam: alert, oriented x 3, cooperative, concrete carpenter II-XII nml as tested, sensation nml, No motor deficits Skin Exam: normal color, warm, No dry SpO2 Interpretation: borderline oxygenation Oxygen Delivery: Room Air - Course EKG Interpreted by Me: RATE, Sinus Rhythm, NORMAL AXIS, NORMAL INTERVALS, NORMAL QRS, Ischemic ST-T changes (no change compared to EKG 01/22/17.) - CT Exams Chest CT Interpretation: Tele-radiologist Report (per Dr Muñoz), No PE, Other ( mediastinal adenopathy; bilateral patchy infiltrates) Ordered Tests: Active Orders 24 hr Category Date Time Status Graves Registration Specialist STAT Care 03/17/18 09:28 Active EKG-ER Only STAT Care 03/17/18 09:27 Active IV Insertion STAT Care 03/17/18 09:27 Active Oxygen-ED Only NASAL CANNULA 2 lpm Care 03/17/18 09:27 Active Pulse Oximetry (ED) STAT Care 03/17/18 09:27 Active CHEST 2 VIEWS (PA AND LAT) Stat Exams 03/17/18 09:28 Taken CHEST WITH CONTRAST [CT] Stat Exams 03/17/18 10:26 Taken CBC W DIFF Stat Lab 03/17/18 09:20 Completed CMP Stat Lab 03/17/18 09:20 Completed D-DIMER QUANTITATION Stat Lab 03/17/18 09:20 Completed Lactic Acid Stat Lab 03/17/18 09:27 Completed Lactic Acid Stat Lab 03/17/18 11:44 Ordered NT PRO BNP Stat Lab 03/17/18 09:20 Completed TROPONIN Q3H Lab 03/17/18 09:20 Completed TROPONIN Q3H Lab 03/17/18 12:30 Ordered TROPONIN Q3H Lab 03/17/18 15:30 Ordered TROPONIN Q3H Lab 03/17/18 18:30 Ordered TROPONIN Q3H Lab 03/17/18 21:30 Ordered Peak Expiratory Flow Rate ONCE RT 03/17/18 09:54 Completed Respiratory Nebulizer STAT RT 03/17/18 09:29 Completed Respiratory Therapy Assessment DAILY RT 03/17/18 09:53 Completed Medication Summary Discontinued Medications Generic Name Dose Route Start Last Admin Trade Name Freq PRN Reason Stop Dose Admin Albuterol/Ipratropium 3 ml 03/17/18 09:27 03/17/18 09:59 Duoneb 0.5-3 Mg/3 Ml Neb IH 03/17/18 09:28 3 ml STAT ONE Administration Albuterol/Ipratropium Confirm 03/17/18 09:55 Duoneb 0.5-3 Mg/3 Ml Neb Administered 03/17/18 09:56 Dose 3 ml IH .STK-MED ONE Furosemide 40 mg 03/17/18 09:27 03/17/18 09:45 Lasix 40 Mg/4 Ml IV 03/17/18 09:28 40 mg STAT ONE Administration Furosemide Confirm 03/17/18 09:33 Lasix 40 Mg/4 Ml Administered 03/17/18 09:34 Dose 40 mg .ROUTE .STK-MED ONE Ceftriaxone Sodium/Dextrose 1 g in 50 mls @ 100 mls/hr 03/17/18 12:45 13:11 Rocephin 1 Gm-D5w 50 Ml Bag IV 03/17/18 13:14 100 ml/hr STAT STA 100 mls/hr Administration Methylprednisolone Sodium Succinate 125 mg 03/17/18 09:27 03/17/18 09:45 Solu-Medrol 125 Mg IV 03/17/18 09:28 125 mg STAT ONE Administration Methylprednisolone Sodium Succinate Confirm 03/17/18 09:33 Solu-Medrol 125 Mg Administered 03/17/18 09:34 Dose 125 mg .ROUTE .STK-MED ONE Lab/Rad Data: Laboratory Result Diagrams 03/17/18 09:20 03/17/18 09:20 Laboratory Results 03/17/18 03/17/18 03/17/18 Range/Units 11:44 09:27 09:20 WBC (4.0-10.5) K/mm3 RBC (4.1-5.4) M/mm3 Hgb (12.0-16.0) gm/dl Hct (35-47) % MCV (78-100) fl MCH (26-32) pg MCHC (32-36) g/dl RDW (11.5-14.0) % Plt Count (150-450) K/mm3 MPV (6-9.5) fl Gran % (36.0-66.0) % Eos # (Auto) (0-0.5) Absolute Lymphs (auto) (1.0-4.6) Absolute Monos (auto) (0.0-1.3) Lymphocytes % (24.0-44.0) % Monocytes % (0.0-12.0) % Eosinophils % (0.00-5.0) % Basophils % (0.0-0.4) % Absolute Granulocytes (1.4-6.9) Basophils # (0-0.4) D-Dimer (215-500) ng/mL Sodium (137-145) mmol/L Potassium (3.5-5.1) mmol/L Chloride (98-107) mmol/L Carbon Dioxide (22-30) mmol/L Anion Gap (5-15) MEQ/L BUN (7-17) mg/dL Creatinine (0.52-1.04) mg/dL Estimated GFR ML/MIN Glucose (74-106) mg/dL Lactic Acid 1.2 2.8 H (0.4-2.0) Calcium (8.4-10.2) mg/dL Total Bilirubin (0.2-1.3) mg/dL AST (14-36) U/L ALT (0-35) U/L Alkaline Phosphatase (38-126) U/L Troponin I (0.000-0.034) ng/mL NT-Pro-B Natriuret Pep (0-900) pg/mL Serum Total Protein (6.3-8.2) g/dL Albumin (3.5-5.0) g/dL Influenza Type A Ag NEGATIVE (NEGATIVE) Influenza Type B Ag NEGATIVE (NEGATIVE) RSV (PCR) NEGATIVE (Negative) 03/17/18 03/17/18 03/17/18 Range/Units 09:20 09:20 09:20 WBC (4.0-10.5) K/mm3 RBC (4.1-5.4) M/mm3 Hgb (12.0-16.0) gm/dl Hct (35-47) % MCV (78-100) fl MCH (26-32) pg MCHC (32-36) g/dl RDW (11.5-14.0) % Plt Count (150-450) K/mm3 MPV (6-9.5) fl Gran % (36.0-66.0) % Eos # (Auto) (0-0.5) Absolute Lymphs (auto) (1.0-4.6) Absolute Monos (auto) (0.0-1.3) Lymphocytes % (24.0-44.0) % Monocytes % (0.0-12.0) % Eosinophils % (0.00-5.0) % Basophils % (0.0-0.4) % Absolute Granulocytes (1.4-6.9) Basophils # (0-0.4) D-Dimer 594 H* (215-500) ng/mL Sodium 139 (137-145) mmol/L Potassium 4.2 (3.5-5.1) mmol/L Chloride 101 (98-107) mmol/L Carbon Dioxide 28 (22-30) mmol/L Anion Gap 13.9 (5-15) MEQ/L BUN 15 (7-17) mg/dL Creatinine 0.54 (0.52-1.04) mg/dL Estimated GFR > 60.0 ML/MIN Glucose 197 H (74-106) mg/dL Lactic Acid (0.4-2.0) Calcium 9.3 (8.4-10.2) mg/dL Total Bilirubin 0.60 (0.2-1.3) mg/dL AST 35 (14-36) U/L ALT 35 (0-35) U/L Alkaline Phosphatase 78 (38-126) U/L Troponin I < 0.012 (0.000-0.034) ng/mL NT-Pro-B Natriuret Pep 94.9 (0-900) pg/mL Serum Total Protein 6.9 (6.3-8.2) g/dL Albumin 4.1 (3.5-5.0) g/dL Influenza Type A Ag (NEGATIVE) Influenza Type B Ag (NEGATIVE) RSV (PCR) (Negative) 03/17/18 Range/Units 09:20 WBC 8.9 (4.0-10.5) K/mm3 RBC 5.71 H (4.1-5.4) M/mm3 Hgb 11.4 L (12.0-16.0) gm/dl Hct 35.4 (35-47) % MCV 62.0 L (78-100) fl MCH 19.9 L (26-32) pg MCHC 32.2 (32-36) g/dl RDW 19.6 H (11.5-14.0) % Plt Count 238 (150-450) K/mm3 MPV 10.3 H (6-9.5) fl Gran % 60.3 (36.0-66.0) % Eos # (Auto) 0.26 (0-0.5) Absolute Lymphs (auto) 2.44 (1.0-4.6) Absolute Monos (auto) 0.81 (0.0-1.3) Lymphocytes % 27.4 (24.0-44.0) % Monocytes % 9.1 (0.0-12.0) % Eosinophils % 2.9 (0.00-5.0) % Basophils % 0.3 (0.0-0.4) % Absolute Granulocytes 5.37 (1.4-6.9) Basophils # 0.03 (0-0.4) D-Dimer (215-500) ng/mL Sodium (137-145) mmol/L Potassium (3.5-5.1) mmol/L Chloride (98-107) mmol/L Carbon Dioxide (22-30) mmol/L Anion Gap (5-15) MEQ/L BUN (7-17) mg/dL Creatinine (0.52-1.04) mg/dL Estimated GFR ML/MIN Glucose (74-106) mg/dL Lactic Acid (0.4-2.0) Calcium (8.4-10.2) mg/dL Total Bilirubin (0.2-1.3) mg/dL AST (14-36) U/L ALT (0-35) U/L Alkaline Phosphatase (38-126) U/L Troponin I (0.000-0.034) ng/mL NT-Pro-B Natriuret Pep (0-900) pg/mL Serum Total Protein (6.3-8.2) g/dL Albumin (3.5-5.0) g/dL Influenza Type A Ag (NEGATIVE) Influenza Type B Ag (NEGATIVE) RSV (PCR) (Negative) - Progress Progress: improved Air Movement: good Progress Note: 03/17/18 12:46 The patient was given Lasix 40 mg by IV. The patient states she feels better with her breathing. On room air the patient is satting between 88 and 94%. She does not complain of being short of breath. Respiratory therapy has evaluated the patient. The patient wishes to go home after receiving antibiotics for infiltrates. The patient has a sleep apnea machine on order but has not picked it up yet. She's had a sleep study done at this hospital with the results that she needed a sleep apnea machine while sleeping. Blood Culture(s) Obtained: No Antibiotics given: Yes Counseled pt/family regarding: lab results, diagnosis, need for follow-up, rad results - Departure Time of Disposition: 12:51 Departure Disposition: Home Clinical Impression: Dyspnea, Pulmonary infiltrates on CXR, Mediastinal adenopathy Condition: Stable Critical Care Time: No Referrals: WOLF VIRGEN MD [Primary Care Provider] - Additional Instructions: You have shortness of breath today. You were given Lasix 40 mg by IV and Rocephin 1 g by IV in the ER. Take azithromycin 500 mg today and then 250 mg daily for days 2 through 5. Follow-up with your primary medical doctor on Monday. Obtain the CT from the pharmacy that has been on order for you to use. Prescriptions: Azithromycin 250 mg [Zithromax 250 MG TABLET] 250 mg PO ZPACK #6 tablet
[2018-03-17] MEDS ORDERED: solu-MEDROL 125 MG ONE (09:33)
[2018-03-17] MEDS ORDERED: Lasix 40 MG/4 ML ONE (09:33)
[2018-03-17 09:41] LABS: BASOPHIL % 0.3 % (0.0-0.4); Basophil (Absolute #) 0.03 (0-0.4); Eosinophil % 2.9 % (0.00-5.0); Eosinophil (Absolute #) 0.26 (0-0.5); Granulocyte Absolute (ANC) 5.37 (1.4-6.9); Granulocytes % 60.3 % (36.0-66.0); Hematocrit 35.4 % (35-47); Hemoglobin 11.4 gm/dl (12.0-16.0); Lymphocyte (Absolute #) 2.44 (1.0-4.6); Lymphocytes % 27.4 % (24.0-44.0); Mean Corpuscular Hgb Concent. 32.2 g/dl (32-36); Mean Platelet Volume 10.3 fl (6-9.5); Monocyte (Absolute #) 0.81 (0.0-1.3); Monocytes % 9.1 % (0.0-12.0); Platelet Count 238 K/mm3 (150-450); Red Blood Count 5.71 M/mm3 (4.1-5.4); Red Cell Distribution Width 19.6 % (11.5-14.0); White Blood Count 8.9 K/mm3 (4.0-10.5)
[2018-03-17 09:43] LABS: Mean Corpuscular Hemoglobin 19.9 pg (26-32)
[2018-03-17 09:44] LABS: Lactic Acid 2.8 (0.4-2.0)
[2018-03-17 10:09] LABS: INFLUENZA A NEGATIVE (NEGATIVE); INFLUENZA B NEGATIVE (NEGATIVE); RESPIRATORY SYNCTIAL VIRUS NEGATIVE (Negative)
[2018-03-17 10:10] LABS: ALBUMIN 4.1 g/dL (3.5-5.0); ALKALINE PHOSPHATASE 78 U/L (38-126); ANION GAP 13.9 MEQ/L (5-15); BLOOD UREA NITROGEN 15 mg/dL (7-17); CHLORIDE 101 mmol/L (98-107); Calcium 9.3 mg/dL (8.4-10.2); Carbon Dioxide 28 mmol/L (22-30); Creatinine 1 0.54 mg/dL (0.52-1.04); Glucose 197 mg/dL (74-106); NT PRO BNP 94.9 pg/mL (0-900); Potassium 4.2 mmol/L (3.5-5.1); SGOT/AST 35 U/L (14-36); SGPT/ALT 35 U/L (0-35); SODIUM 139 mmol/L (137-145); Total Protein 6.9 g/dL (6.3-8.2)
[2018-03-17] MEDS ORDERED: ROCEPHIN 1 Gm-D5w 50 ml Bag** 1 G/50 ML IVPB IV STA (12:45)
[2018-03-17 13:51] VITALS: BP 115/70; PULSE 72; O2SAT 92
--- NOTE | 2018-03-17 22:03 | XRAY ---
Indication: Short of breath. Comparison: January 22, 2017. PA/lateral chest again hyperinflated without focal infiltrate, consolidation, or large effusion. Heart is not enlarged. Vascularity normal. Bony thorax intact. Impression: Stable nonacute hyperinflated chest.
--- NOTE | 2018-03-17 22:07 | XRAY ---
Indication: Short of breath. Elevated d-dimer. Multiple contiguous axial images obtained through the chest using 100 cc Isovue 370 contrast and PE protocol. Comparison: None There is satisfactory opacification of the pulmonary arteries to include the lobar and segmental branches. No filling defect or pulmonary embolus. Heart is not enlarged. Aorta is normal in course and caliber. 1.5 x 1.9 cm subcarinal nodes. No pathologic hilar lymphadenopathy. Examination of the lung parenchyma demonstrates mild biapical subpleural cystic changes. Subtle bilateral patchy airspace opacities greatest in both lower lobes. Left lower lobe 8 mm subpleural noncalcified nodule. Bony thorax intact with minimal degenerative changes throughout the spine. Limited upper abdomen demonstrates fatty liver and 14 cm splenomegaly. Impression: 1. Negative pulmonary embolus. 2. Minimal patchy bilateral airspace disease. No consolidation/effusion. 3. Indeterminate subcentimeter left lower lobe noncalcified nodule. Comparison studies would be of benefit. If not available, recommend follow-up per Fleischner guidelines. 4. Biapical subpleural cystic changes. 5. Fatty liver and splenomegaly. Comment: Preliminary interpretation was made by [facility]. No critical discrepancy. CTDI 23.69
== END 2018-03-17 13:58 | disposition home or self-care (01) ==
LOC: ED 09:13 → MED SURG 11:54 → UNDOADMOB 11:54 → ED 13:58
DX: R06.00 Dyspnea, unspecified (principal); R91.8 Other nonspecific abnormal finding of lung field; R59.0 Localized enlarged lymph nodes; Z79.899 Other long term (current) drug therapy; E11.9 Type 2 diabetes mellitus without complications; Z79.4 Long term (current) use of insulin
CPT/HCPCS: 36000; 36415; 71046; 71260; 80053; 82962; 83605; 83880; 84484; 85025; 85379; 87631; 93005; 93041; 94150; 94640; 96365; 96374; 96375; 99285; J0696; J1940; J2930; A9270-GY

== ENCOUNTER 2018-04-10 02:31 | Emergency (ER) | payer OTHER ==
--- NOTE | 2018-04-10 03:12 | ERPHSYRPT ---
- History of Present Illness Time Seen by Provider: 04/10/18 03:07 Historian: patient Exam Limitations: no limitations Patient Subjective Stated Complaint: Chest pain Triage Nursing Assessment: Patient ambulated into ER and transferred self into bed. Patient A+O X 3. Patient complains of chest pain/ epigastric pain 5/10 that doesn't radiate into anywhere. Patient states she has had this pain for one week. Patient states she has recently had trouble with her bowels and hadn' t had a BM in 6 days, but was given a suppository and had one small BM yesterday. Patient states her pain goes gets better sometimes if she gets up and moves around. The pain is worse when lying flat. Patient's lungs clear a/p shirley. S1-S2 heart tones audible. +1 edema present to BLE. Physician History: The patient is a morbidly obese 57-year-old female with her complaining of epigastric pain after she eats or drinks anything for the past week. She also has epigastric pain after lying flat and sleeping. Tonight it woke her up from a sleep. The pain will begin in the stomach area and then go up into the middle of her chest. The pain gets better when she gets up and walks around. She has not tried Maalox or Pepto-Bismol to help relieve the pain. She has not had a bowel movement in 6 days. She thinks it is the fenofibrate causing her constipation. She stopped the fenofibrate yesterday and had a suppository that resulted in a tiny bowel movement. She had another suppository 15 minutes before arrival and did not have a bowel movement yet. She denies being short of breath. Her past medical history is significant for COPD, diabetes, chronic lower extremity edema, hyperlipidemia, and morbid obesity. Timing/Duration: week(s) (1), intermittent, worse (worse after eating and lying flat on her back.) Activities at Onset: none Quality: sharpness Abdominal Pain Onset Location: epigastric Pain Radiation: chest Severity of Pain-Max: moderate Severity of Pain-Current: mild Modifying Factors: Improves With: eating (worse) Associated Symptoms: nausea, other (constipation) Previous symptoms: no prior history Allergies/Adverse Reactions: NSAIDS (Non-Steroidal Anti-Inflamma Allergy (Verified 04/10/18 02:50) facial swelling aspirin Adverse Reaction (Verified 04/10/18 02:50) facial swelling ibuprofen Adverse Reaction (Verified 04/10/18 02:50) facial swelling Home Medications: Potassium Chloride 8 meq PO DAILY 03/16/16 [History] Insulin Aspart [Novolog Flexpen] 15 unit SQ TID PRN PRN 09/07/16 [History] Insulin Glargine,Hum.rec.anlog [Lantus Solostar] 40 unit SQ DAILY PRN PRN [History] Multivitamin/Iron/Folic Acid [Centrum Adults Tablet] 1 each PO DAILY 01/22/17 [ History] Bumetanide 1 mg [Bumex 1 mg] 1 mg PO DAILY 04/10/18 [History] Fluticasone Propionate cc [Flovent 110 Mcg COMMON CANISTER] 1 puff IH BID [History] Gabapentin 300 mg PO TID 04/10/18 [History] Hx Tetanus, Diphtheria Vaccination/Date Given: Yes Hx Influenza Vaccination/Date Given: No Hx Pneumococcal Vaccination/Date Given: Yes Immunizations Up to Date: Yes - Review of Systems Constitutional: No Fever, No Chills Eyes: No Symptoms Ears, Nose, & Throat: No Symptoms Respiratory: No Cough, No Dyspnea Cardiac: No Chest Pain, No Edema, No Syncope Abdominal/Gastrointestinal: Abdominal Pain, Nausea, Constipation Genitourinary Symptoms: No Dysuria Musculoskeletal: No Back Pain, No Neck Pain Skin: No Rash Neurological: No Dizziness, No Focal Weakness, No Sensory Changes Psychological: No Symptoms Endocrine: No Symptoms Hematologic/Lymphatic: No Symptoms Immunological/Allergic: No Symptoms All Other Systems: Reviewed and Negative - Past Medical History Pertinent Past Medical History: Yes Neurological History: Migraines ENT History: No Pertinent History Cardiac History: No Pertinent History, High Cholesterol Respiratory History: Asthma, COPD, Pneumonia, Other Endocrine Medical History: Diabetes Type II Musculoskeletal History: Osteoarthritis GI Medical History: No Pertinent History History: No Pertinent History Psycho-Social History: Depression Female Reproductive Disorders: No Pertinent History Other Medical History: HAS SEASONAL ALLERGIES - Past Surgical History Past Surgical History: Yes Neuro Surgical History: No Pertinent History Cardiac: No Pertinent History Respiratory: Other Gastrointestinal: No Pertinent History Genitourinary: No Pertinent History Musculoskeletal: No Pertinent History Female Surgical History: Section Other Surgical History: csection x2. sinus surgery x6 - Social History Smoking Status: Current every day smoker How long have you smoked: 40 years Exposure to second hand smoke: No Drug Use: none Patient Lives Alone: No (lives at home with family) - Female History Hx Last Menstrual Period: Menopausal Hx Now: No - Nursing Vital Signs Nursing Vital Signs: Initial Vital Signs Temperature 97.4 F 04/10/18 02:41 Pulse Rate 87 04/10/18 02:41 Respiratory Rate 18 04/10/18 02:41 Blood Pressure 183/107 04/10/18 02:41 O2 Sat by Pulse Oximetry 97 04/10/18 02:41 Pain Scale Pain Intensity 4 - Physical Exam General Appearance: no apparent distress, obese Eye Exam: PERRL/EOMI, eyes nml inspection Ears, Nose, Throat Exam: normal ENT inspection, pharynx normal, moist mucous membranes Neck Exam: normal inspection, non-tender, supple, full range of motion Respiratory Exam: normal breath sounds, lungs clear, No respiratory distress Cardiovascular Exam: regular rate/rhythm, normal heart sounds Gastrointestinal/Abdomen Exam: tenderness (generalized), distention Pelvic Exam: not done Rectal Exam: not done Back Exam: normal inspection, normal range of motion, No CVA tenderness, No vertebral tenderness Extremity Exam: pedal edema (bilateral with chronic changes.) Neurologic Exam: alert, oriented x 3, cooperative, normal mood/affect, nml cerebellar function, sensation nml, No motor deficits Skin Exam: normal color, warm, dry SpO2 Interpretation: normal SpO2: 97 Oxygen Delivery: Room Air - Course EKG Interpreted by Me: RATE, Sinus Rhythm, NORMAL AXIS, NORMAL INTERVALS, Right Bundle Branch Block, Other (no change compared to EKG 03/17/18.) - Radiology Exams Chest X-ray Interpretation: Interpreted by me, Negative, Other (stable 2V chest, comp 2V chest 03/17/18.) Abdomen X-ray Interpretation: Interpreted by me, Negative, Other (moderate colonic stool.) Ordered Tests: Active Orders 24 hr Category Date Time Status EKG-ER Only STAT Care 04/10/18 03:14 Active IV Insertion STAT Care 04/10/18 03:14 Active ABDOMEN 2 VIEW Stat Exams 04/10/18 03:15 Taken CHEST 2 VIEWS (PA AND LAT) Stat Exams 04/10/18 03:15 Taken BMP Stat Lab 04/10/18 03:15 Completed CBC W DIFF Stat Lab 04/10/18 03:15 Completed LIPASE Stat Lab 04/10/18 03:15 Completed TROPONIN Q3H Lab 04/10/18 03:15 Completed Medication Summary Discontinued Medications Generic Name Dose Route Start Last Admin Trade Name Zanderq PRN Reason Stop Dose Admin Al Hydrox/Mg Hydrox/Simethicone Confirm 04/10/18 03:19 Maalox Es 30 Ml Unit Dose Administered 04/10/18 03:20 Dose 30 ml .ROUTE .STK-MED ONE Famotidine 20 mg 04/10/18 03:14 04/10/18 03:24 Pepcid 20 Mg Vial IV 04/10/18 03:15 20 mg STAT ONE Administration Famotidine Confirm 04/10/18 03:23 Pepcid 20 Mg Vial Administered 04/10/18 03:24 Dose 20 mg IV .STK-MED ONE Lidocaine HCl Confirm 04/10/18 03:19 Xylocaine Hcl Viscous * Administered 04/10/18 03:20 Dose 15 ml .ROUTE .STK-MED ONE Magnesium Hydroxide 45 ml 04/10/18 03:14 04/10/18 03:24 Gi Cocktail 45 Ml (Maalox/Lidocaine) PO 04/10/18 03:15 45 ml STAT ONE Administration Ondansetron HCl 4 mg 04/10/18 03:14 04/10/18 03:24 Zofran 4 Mg/2 Ml Vial IV 04/10/18 03:15 4 mg STAT ONE Administration Ondansetron HCl Confirm 04/10/18 03:23 Zofran 4 Mg/2 Ml Vial Administered 04/10/18 03:24 Dose 4 mg .ROUTE .STK-MED ONE Lab/Rad Data: Laboratory Result Diagrams 04/10/18 03:15 04/10/18 03:15 Laboratory Results 04/10/18 04/10/18 04/10/18 Range/Units 03:15 03:15 03:15 WBC 8.4 (4.0-10.5) K/mm3 RBC 5.79 H (4.1-5.4) M/mm3 Hgb 11.4 L (12.0-16.0) gm/dl Hct 36.1 (35-47) % MCV 62.3 L (78-100) fl MCH 19.6 L (26-32) pg MCHC 31.6 L (32-36) g/dl RDW 20.0 H (11.5-14.0) % Plt Count 258 (150-450) K/mm3 MPV 11.4 H (6-9.5) fl Gran % 55.4 (36.0-66.0) % Eos # (Auto) 1.53 H (0-0.5) Absolute Lymphs (auto) 1.59 (1.0-4.6) Absolute Monos (auto) 0.55 (0.0-1.3) Lymphocytes % 18.9 L (24.0-44.0) % Monocytes % 6.5 (0.0-12.0) % Eosinophils % 18.2 H (0.00-5.0) % Basophils % 1.0 (0.0-0.4) % Absolute Granulocytes 4.67 (1.4-6.9) Basophils # 0.08 (0-0.4) Sodium 135 L (137-145) mmol/L Potassium 4.0 (3.5-5.1) mmol/L Chloride 99 (98-107) mmol/L Carbon Dioxide 27 (22-30) mmol/L Anion Gap 12.9 (5-15) MEQ/L BUN 19 H (7-17) mg/dL Creatinine 0.63 (0.52-1.04) mg/dL Estimated GFR > 60.0 ML/MIN Glucose 366 H (74-106) mg/dL Calcium 9.4 (8.4-10.2) mg/dL Troponin I < 0.012 (0.000-0.034) ng/mL Lipase 612 H (23-300) U/L - Progress Progress: improved Progress Note: 04/10/18 04:58 After GI cocktail po and famotidine 20 mg IV, pt is feeling better. Counseled pt/family regarding: lab results, diagnosis, need for follow-up, rad results - Departure Time of Disposition: 04:59 Departure Disposition: Home Clinical Impression: Acid reflux, Constipation Condition: Stable Critical Care Time: No Referrals: SARI DUMONT [Primary Care Provider] - Additional Instructions: You have some mild gastric reflux. You also have constipation. You were given a GI cocktail to drink in the ER and reviewed given famotidine 20 mg by IV. Take Maalox as often as needed. Take one bottle of magnesium citrate for constipation. Follow-up with your primary medical doctor in one to 2 days if no improvement.
[2018-04-10] MEDS ORDERED: Zofran 4 MG/2 ML VIAL IV ONE (03:14)
[2018-04-10] MEDS ORDERED: GI COCKTAIL 45 ML (Maalox/Lidocaine) PO ONE (03:14)
[2018-04-10] MEDS ORDERED: Pepcid 20 MG VIAL IV ONE ×2 (03:14→03:23)
[2018-04-10] MEDS ORDERED: XYLOCAINE HCl Viscous ONE (03:19)
[2018-04-10] MEDS ORDERED: MAALOX ES 30 ML UNIT DOSE ONE (03:19)
[2018-04-10] MEDS ORDERED: Zofran 4 MG/2 ML VIAL ONE (03:23)
[2018-04-10 03:32] LABS: Basophil (Absolute #) 0.08 (0-0.4); Eosinophil % 18.2 % (0.00-5.0); Eosinophil (Absolute #) 1.53 (0-0.5); Granulocyte Absolute (ANC) 4.67 (1.4-6.9); Granulocytes % 55.4 % (36.0-66.0); Hematocrit 36.1 % (35-47); Hemoglobin 11.4 gm/dl (12.0-16.0); Lymphocyte (Absolute #) 1.59 (1.0-4.6); Lymphocytes % 18.9 % (24.0-44.0); Mean Cell Volume 62.3 fl (78-100); Mean Corpuscular Hgb Concent. 31.6 g/dl (32-36); Mean Platelet Volume 11.4 fl (6-9.5); Monocyte (Absolute #) 0.55 (0.0-1.3); Monocytes % 6.5 % (0.0-12.0); Platelet Count 258 K/mm3 (150-450); Red Blood Count 5.79 M/mm3 (4.1-5.4); White Blood Count 8.4 K/mm3 (4.0-10.5)
[2018-04-10 03:37] LABS: Mean Corpuscular Hemoglobin 19.6 pg (26-32)
[2018-04-10 03:50] LABS: ANION GAP 12.9 MEQ/L (5-15); BLOOD UREA NITROGEN 19 mg/dL (7-17); CHLORIDE 99 mmol/L (98-107); Calcium 9.4 mg/dL (8.4-10.2); Carbon Dioxide 27 mmol/L (22-30); Creatinine 1 0.63 mg/dL (0.52-1.04); Glucose 366 mg/dL (74-106); LIPASE 612 U/L (23-300); SODIUM 135 mmol/L (137-145)
[2018-04-10 04:45] VITALS: BP 181/90; PULSE 99
[2018-04-10 04:56] LABS: Slide Review 1 YES
[2018-04-10 05:00] VITALS: O2SAT 97
--- NOTE | 2018-04-10 08:29 | XRAY ---
Two-view chest from 04/10/2018. Comparison: Two-view chest from 03/17/2018. Indication: Epigastric abdominal pain with nausea 2 weeks. Findings: Upright PA and lateral chest films were obtained. EKG leads are seen in place. Lateral film is slightly rotated. The transverse heart size is within normal limits. There is slight tortuosity of the descending thoracic aorta. The interstitial markings are mildly prominent peripherally within each lung field representing no change. This may be due to chronic interstitial lung disease. I note a minimal transverse band of subsegmental atelectasis or scarring at the anterior lung base on the lateral film only. This also is essentially unchanged. No new dense airspace consolidations, vascular congestion, pneumothorax, or pleural fluid is seen. No acute osseous process is seen. Impression: 1. No significant interval change from 03/17/2018. Subtle increased peripheral interstitial lung markings are seen within both lower lung [place]. Consider chronic interstitial lung disease. 2. Minimal subsegmental atelectasis versus scarring at anterior lung base on lateral radiograph, also no change.
--- NOTE | 2018-04-10 09:03 | XRAY ---
Exam: Two-view abdomen series from 04/10/2018. Comparison: None. Indication: Epigastric abdominal pain with nausea 2 weeks, history of 2 prior sections. Findings: 3 supine images and an upright image of the upper abdomen were obtained. No significant bowel distention or air-fluid levels are seen. Moderate colonic stool is seen within the cecum and ascending colon with a lesser amount of stool noted within the transverse colon, descending colon, and proximal sigmoid colon. There is an 8 mm transversely oriented, linear, high attenuation density projected over the right upper quadrant in the projection of the hepatic flexure as well as the right kidney. I believe this probably represents a bowel lumen content, as its relationship with the right kidney appears to change slightly on different images There is no free intraperitoneal air underneath the hemidiaphragms. Prominent inferior extension of the right lobe of the liver is seen which probably represents a normal variant (Merle's lobe). The spleen is of normal size. Both psoas muscle margins appear unremarkable. No other organomegaly is seen. There is a small calcification seen just inferolateral to the lower margin of left sacroiliac joint which might represent a phlebolith. Correlate clinically to exclude a distal left ureteral stone. Mild lateral osteophyte formation is seen within the lumbar spine. Minimal convexity of the thoracolumbar junction toward the right is seen on the upright image. Impression: 1. Moderate colonic stool is seen without evidence of bowel obstruction or free intraperitoneal air. Consider constipation. 2. 5.8 mm rectangular density noted about 1 cm inferior lateral to the lower margin of the left sacroiliac joint. This may represent a calcified phlebolith, bowel lumen content, or granuloma. The possibility of a distal left ureteral stone is not completely excluded. Correlate clinically.
== END 2018-04-10 05:10 | disposition home or self-care (01) ==
LOC: ED 02:31
DX: K21.9 Gastro-esophageal reflux disease without esophagitis (principal); K59.00 Constipation, unspecified; R10.13 Epigastric pain; Z79.899 Other long term (current) drug therapy; E11.9 Type 2 diabetes mellitus without complications; Z79.4 Long term (current) use of insulin
CPT/HCPCS: 36000; 36415; 71046; 74021; 80048; 83690; 84484; 85025; 93005; 96374; 96375; 99284; J2405; A9270-GY

== ENCOUNTER 2018-09-19 12:15 | Emergency (ER) | payer OTHER ==
[2018-09-19 13:16] VITALS: BP 156/73
--- NOTE | 2018-09-19 13:53 | ERPHSYRPT ---
- History of Present Illness Time Seen by Provider: 09/19/18 13:41 Source: patient Exam Limitations: no limitations Patient Subjective Stated Complaint: c/o right shoulder pain that radiates down her right arm. pain is constant rating 10/10. pain is disrupting her sleep, keeping her up at night has been going on for a couple of days now. denies injury. Triage Nursing Assessment: amb to treatment room. guarding right shoulder and arm. very stiff like movements. required assistance with removing shirt d/t pain. no bruising or swelling to shoulder or arm, no redness. cap refill <3 sec. pulse +, skin warm and dry. offered pillow to support arm, pt refused. Physician History: C/o right shoulder pain x 2 days, radiates to her arm, denies injury, no neck pain, headaches, chest pain, SOB, vomiting, fever or other complaints. Occurred: days ago (2) Method of Injury: unknown Quality: constant Severity of Pain-Max: moderate Severity of Pain-Current: moderate Extremities Pain Location: shoulder: right, arm: right (aching) Modifying Factors: Improves With: movement Associated Symptoms: none Allergies/Adverse Reactions: NSAIDS (Non-Steroidal Anti-Inflamma Allergy (Verified 04/10/18 02:50) facial swelling aspirin Adverse Reaction (Verified 04/10/18 02:50) facial swelling ibuprofen Adverse Reaction (Verified 04/10/18 02:50) facial swelling Home Medications: Potassium Chloride 8 meq PO DAILY 03/16/16 [History] Insulin Aspart [Novolog Flexpen] 15 unit SQ TID PRN PRN 09/07/16 [History] Insulin Glargine,Hum.rec.anlog [Lantus Solostar] 40 unit SQ DAILY PRN PRN [History] Bumetanide 1 mg [Bumex 1 mg] 1 mg PO DAILY 04/10/18 [History] Fluticasone Propionate cc [Flovent 110 Mcg COMMON CANISTER] 1 puff IH BID [History] Gabapentin 300 mg PO TID 04/10/18 [History] Fluticasone/Vilanterol [Breo Ellipta 100-25 Mcg INH] 1 puff IH DAILY 09/19/18 [ History] Hx Tetanus, Diphtheria Vaccination/Date Given: Yes Hx Influenza Vaccination/Date Given: No Hx Pneumococcal Vaccination/Date Given: No Immunizations Up to Date: Yes - Review of Systems Constitutional: No Symptoms Ears, Nose, & Throat: No Symptoms Respiratory: No Symptoms Cardiac: No Symptoms Genitourinary Symptoms: No Symptoms Musculoskeletal: Other (right shoulder pain) Skin: No Symptoms Neurological: No Symptoms, Other (denies arm weakness, numbness, tingling) All Other Systems: Reviewed and Negative - Past Medical History Pertinent Past Medical History: Yes Neurological History: Migraines ENT History: No Pertinent History Cardiac History: No Pertinent History, High Cholesterol Respiratory History: Asthma, COPD, Pneumonia, Other Endocrine Medical History: Diabetes Type II Musculoskeletal History: Osteoarthritis GI Medical History: No Pertinent History History: No Pertinent History Psycho-Social History: Depression Female Reproductive Disorders: No Pertinent History Other Medical History: HAS SEASONAL ALLERGIES - Past Surgical History Past Surgical History: Yes Neuro Surgical History: No Pertinent History Cardiac: No Pertinent History Respiratory: Other Gastrointestinal: No Pertinent History Genitourinary: No Pertinent History Musculoskeletal: No Pertinent History, Orthopedic Surgery Female Surgical History: Section Other Surgical History: csection x2. sinus surery X6. vascular surgery right leg - Social History Smoking Status: Current every day smoker How long have you smoked: 40 years Exposure to second hand smoke: No Drug Use: none Patient Lives Alone: No (lives at home with family) - Female History Hx Last Menstrual Period: 6 years ago Hx Now: No - Nursing Vital Signs Nursing Vital Signs: Initial Vital Signs Temperature 98.1 F 09/19/18 12:16 Pulse Rate 83 09/19/18 12:16 Respiratory Rate 16 09/19/18 12:16 Blood Pressure 179/78 09/19/18 12:16 O2 Sat by Pulse Oximetry 95 09/19/18 12:16 Pain Scale Pain Intensity 10 - Physical Exam General Appearance: no apparent distress Eyes, Ears, Nose, Throat Exam: normal ENT inspection Neck Exam: normal inspection, non-tender, supple Cardiovascular/Respiratory Exam: chest non-tender, normal breath sounds, regular rate/rhythm, heart sounds normal, no JVD Abdominal Exam: non-tender, soft Back Exam: normal inspection, No CVA tenderness, No vertebral tenderness Shoulder Exam: normal inspection, no evidence of injury (diminished motions due to pain, no swelling or defomity, diffuse pain, tenderness in the rotator cuff , deltoid area, good distal pulses and sensation.) Elbow/Forearm Exam: normal inspection, non-tender, no evidence of injury, normal ROM Wrist Exam: normal inspection Hand Exam: normal inspection DTR - Upper Extremity Exam: bicep (R): 2+, bicep (L): 2+, tricep (R): 2+, tricep (L): 2+ Neuro/Tendon Exam: normal sensation, normal motor functions Mental Status Exam: alert, oriented x 3, cooperative Skin Exam: normal color, warm, dry, No rash SpO2 Interpretation: normal SpO2: 90 O2 Delivery: Room Air - Course Nursing assessment & vital signs reviewed: Yes - Radiology Exams Right Shoulder X-ray Interpretation: Reviewed by me, Negative, Other (DJD, chronic changes) Ordered Tests: Active Orders 24 hr Category Date Time Status Sling Application STAT Care 09/19/18 14:40 Active SHOULDER Stat Exams 09/19/18 13:40 Completed - Progress Progress: unchanged Progress Note: 09/19/18 14:41 Pt was educated about our findings and right arm was placed in sling, discharged with instructions, and advised to follow up with her physician next week. She was given Ultram 50 mg Po Q6h PRN for pain #10. Counseled pt/family regarding: diagnosis, need for follow-up, rad results - Departure Time of Disposition: 14:45 Departure Disposition: Home Clinical Impression: Shoulder pain, right Qualifiers: Chronicity: unspecified Qualified Code(s): M25.511 - Pain in right shoulder Condition: Stable Critical Care Time: No Referrals: DOCTOR,NO FAMILY [Primary Care Provider] - Instructions: Frozen Shoulder, Bursitis Additional Instructions: Rest in sling x 2-3 days, then start careful exercise, apply moist heat to painful shoulder and follow up with your physician next week! Prescriptions: Tramadol HCl 50 mg [Ultram 50 mg] 50 mg PO Q6H PRN #10 tablet PRN Reason: Pain
[2018-09-19 13:59] VITALS: PULSE 76
--- NOTE | 2018-09-19 14:17 | XRAY ---
Indication: Pain. No known injury. Comparison: April 09, 2018. 3 views of the right shoulder unchanged again demonstrating mild osteopenia, tiny acromion process heterotopic ossification, tiny greater tuberosity spurring, and a few upper arm soft tissue calcified granulomas. No new/acute findings.
[2018-09-19 14:45] VITALS: O2SAT 90
== END 2018-09-19 15:10 | disposition home or self-care (01) ==
LOC: ED 12:15
DX: M25.511 Pain in right shoulder (principal); E78.00 Pure hypercholesterolemia, unspecified; J44.9 Chronic obstructive pulmonary disease, unspecified; J45.909 Unspecified asthma, uncomplicated; E11.9 Type 2 diabetes mellitus without complications; M19.90 Unspecified osteoarthritis, unspecified site; F32.9 Major depressive disorder, single episode, unspecified; Z79.4 Long term (current) use of insulin
CPT/HCPCS: 73030; 99284

== ENCOUNTER 2019-05-22 22:29 | Emergency (ER) | payer OTHER ==
[~2019-05-22 22:29] MED LIST: DELTASONE 10 MG PO ONE
--- NOTE | 2019-05-22 22:50 | ERPHSYRPT ---
- History of Present Illness Time Seen by Provider: 05/22/19 22:50 Source: patient, family Exam Limitations: no limitations Patient Subjective Stated Complaint: pt states she has pain in her lt arm from below the elbow up to shoulder and into her lt neck. Triage Nursing Assessment: pt alert and oriented, answers questions approp. pt ambulatory with steady gait noted. respirations nonlabored. pt splinting arm against side. c/o increased apin with movement. radial pulse and cap refill to lt wnl. Physician History: left elbow pain on the outer side for last 2 days. Pain is increased with movement of the left elbow and also rotation of the forearm. No injury. No issue doubt. No chest pain or shortness of breath. Occurred: yesterday Quality: constant Severity of Pain-Max: moderate Severity of Pain-Current: moderate Extremities Pain Location: elbow: left, forearm: left Modifying Factors: Improves With: movement Associated Symptoms: No back pain, No chills, No chest discomfort, No chest pain , No dyspnea, No fever, No jaw pain, No nausea, No neck pain, No sweating, No short of breath, No vomiting Allergies/Adverse Reactions: NSAIDS (Non-Steroidal Anti-Inflamma Allergy (Verified 05/22/19 22:42) facial swelling aspirin Adverse Reaction (Verified 05/22/19 22:42) facial swelling ibuprofen Adverse Reaction (Verified 05/22/19 22:42) facial swelling Home Medications: Potassium Chloride 8 meq PO DAILY 03/16/16 [History] Insulin Aspart [Novolog Flexpen] 15 unit SQ TID PRN PRN 09/07/16 [History] Insulin Glargine,Hum.rec.anlog [Lantus Solostar] 40 unit SQ DAILY PRN PRN [History] Fluticasone/Vilanterol [Breo Ellipta 100-25 Mcg INH] 1 puff IH DAILY 09/19/18 [ History] Albuterol 2.5 mg/3 ml Neb [Proventil 2.5 mg/3 ml Neb] 2.5 mg IH Q4-6HPRN PRN 05/22/19 [History] Furosemide 40 mg [Lasix 40 MG] 40 mg PO DAILY 05/22/19 [History] Tizanidine HCl 4 mg [Zanaflex 4 MG] 4 mg PO HS 05/22/19 [History] Trazodone HCl 50 mg [Desyrel 50 mg] 50 mg PO HS 05/22/19 [History] Hx Tetanus, Diphtheria Vaccination/Date Given: Yes Hx Influenza Vaccination/Date Given: No Hx Pneumococcal Vaccination/Date Given: No Immunizations Up to Date: Yes - Review of Systems Constitutional: No Fever, No Chills Eyes: No Symptoms Ears, Nose, & Throat: No Symptoms Respiratory: No Cough, No Dyspnea Cardiac: No Chest Pain, No Edema, No Syncope Abdominal/Gastrointestinal: No Abdominal Pain, No Nausea, No Vomiting, No Diarrhea Genitourinary Symptoms: No Dysuria Musculoskeletal: Other (pain in the left elbow on the outer side treating her for down the left forearm.), No Back Pain, No Neck Pain Skin: No Rash Neurological: No Dizziness, No Focal Weakness, No Sensory Changes Psychological: No Symptoms Endocrine: No Symptoms All Other Systems: Reviewed and Negative - Past Medical History Pertinent Past Medical History: Yes Neurological History: Migraines ENT History: No Pertinent History Cardiac History: No Pertinent History, High Cholesterol Respiratory History: Asthma, COPD, Pneumonia, Other Endocrine Medical History: Diabetes Type II Musculoskeletal History: Osteoarthritis GI Medical History: No Pertinent History History: No Pertinent History Psycho-Social History: Depression Female Reproductive Disorders: No Pertinent History Other Medical History: sinusitis - Past Surgical History Past Surgical History: Yes Neuro Surgical History: No Pertinent History Cardiac: No Pertinent History Respiratory: Other Gastrointestinal: No Pertinent History Genitourinary: No Pertinent History Musculoskeletal: No Pertinent History, Orthopedic Surgery Female Surgical History: Section Other Surgical History: csection x2. sinus surery X6. vascular surgery right leg - Social History Smoking Status: Current every day smoker How long have you smoked: 44 years Exposure to second hand smoke: No Drug Use: none Patient Lives Alone: No (lives at home with family) - Nursing Vital Signs Nursing Vital Signs: Initial Vital Signs Temperature 97.9 F 05/22/19 22:35 Pulse Rate 79 05/22/19 22:35 Respiratory Rate 20 05/22/19 22:35 Blood Pressure 178/80 05/22/19 22:35 O2 Sat by Pulse Oximetry 98 05/22/19 22:35 Pain Scale Pain Intensity 8 - Physical Exam General Appearance: alert Eyes, Ears, Nose, Throat Exam: moist mucous membranes Neck Exam: non-tender, supple Cardiovascular/Respiratory Exam: chest non-tender, normal breath sounds, regular rate/rhythm, no respiratory distress Abdominal Exam: non-tender, No guarding Back Exam: normal inspection, No vertebral tenderness Elbow/Forearm Exam: limited ROM (Localized tenderness over the lateral epicondyle and proximal wrist extensor muscle mass), pain (Pain with resisted wrist extension with the elbow in full extension), swelling (Pain with passive terminal wrist flexion with the elbow in full extension ) Neuro/Tendon Exam: normal sensation, normal motor functions Mental Status Exam: alert, oriented x 3, cooperative Skin Exam: normal color, warm, dry SpO2: 98 Procedures - Additional Procedures Progress: left lateral epicondyles aphagia injected with 8 mg of Decadron under aseptic precautions. No complications. The patient tolerated procedure well. - Course Nursing assessment & vital signs reviewed: Yes Ordered Tests: Active Orders 24 hr Category Date Time Status Julio C Bandage Application -[facility] STAT Care 05/22/19 22:56 Ordered Sling Application STAT Care 05/22/19 22:56 Ordered Medication Summary Discontinued Medications Generic Name Dose Route Start Last Admin Trade Name Torie PRN Reason Stop Dose Admin Hydromorphone HCl 2 mg 05/22/19 22:54 Hydromorphone 1 Mg/Ml Ampule IM 05/22/19 22:55 STAT ONE Ondansetron HCl 4 mg 05/22/19 22:55 Zofran Odt 4 Mg PO 05/22/19 22:56 STAT ONE Prednisone 10 mg 05/22/19 20:56 Deltasone 10 Mg PO 05/22/19 20:57 ONCE ONE - Progress Progress: unchanged Progress Note: 05/22/19 23:11 I treid sending this prescription electronically but I got the message saying the My account was locked. So I could not access it. It is 11:00 in the night and we do not have anyIT support to fix this problem. So I printed the prescription and give it to the patient. Counseled pt/family regarding: diagnosis, need for follow-up - Departure Departure Disposition: Home Clinical Impression: Left upper arm pain Lateral epicondylitis Qualifiers: Laterality: left Qualified Code(s): M77.12 - Lateral epicondylitis, left elbow Condition: Stable Critical Care Time: No Referrals: STEPH,GLENROY, MD [Primary Care Provider] - 05/23/19 Instructions: Lateral Epicondylitis Prescriptions: Hydrocodone/APAP 5-325 Tab^^^ [[place] 5-325 Tablet^^^] 1 each PO TID PRN 2 Days # 6 tablet MDD 6 PRN Reason: Pain
[2019-05-22] MEDS ORDERED: Hydromorphone 1 mg/ml Ampule IM ONE (22:54)
[2019-05-22] MEDS ORDERED: ZOFRAN ODT 4 MG PO ONE (22:55)
[2019-05-22] MEDS ORDERED: DECADRON 10MG INJ. IM ONE ×2 (22:58→23:03)
[2019-05-22] MEDS ORDERED: DECADRON 10MG INJ. ONE (23:00)
[2019-05-22] MEDS ORDERED: ZOFRAN ODT 4 MG ONE (23:01)
[2019-05-22] MEDS ORDERED: DELTASONE 20 MG ONE (23:01)
[2019-05-22] MEDS ORDERED: Hydromorphone 1 mg/ml Ampule ONE (23:01)
[2019-05-22 23:22] VITALS: BP 153/84; PULSE 74; O2SAT 95
== END 2019-05-22 23:32 | disposition home or self-care (01) ==
LOC: ED 22:29
DX: M77.12 Lateral epicondylitis, left elbow (principal); M79.622 Pain in left upper arm; Z79.899 Other long term (current) drug therapy; E11.9 Type 2 diabetes mellitus without complications; J44.9 Chronic obstructive pulmonary disease, unspecified; E78.00 Pure hypercholesterolemia, unspecified
CPT/HCPCS: 96372; 99284; J1100; J1170; Q0162; A9270-GY

== ENCOUNTER 2019-11-01 22:52 | Emergency (ER) | payer OTHER ==
[2019-11-01] MEDS ORDERED: Norco 10/325 MG Tablet PO ONE (23:23)
--- NOTE | 2019-11-01 23:29 | ERPHSYRPT ---
- History of Present Illness Time Seen by Provider: 11/01/19 23:20 Source: patient Patient Subjective Stated Complaint: Patient states " I was leaving the house and stepped out and missed 2nd step and fell forward and attempted to catch myself with my hands and knees and stated her hands bended underneath her". Patient states when she went down her glasses hit the pavent instead of her face in which her glasses are all scratched up. Triage Nursing Assessment: Patient arrived to ER with spouse. Patient Physician History: 59 years old female with multiple medical problems presented in the ER with chief complaint of fall. Patient was getting out of the relative house and accidentally missed a step fell forward and her arm bent, bent underneath her body. She is complaining of moderate to severe pain in the right whole upper extremity and left upper arm. She did not hit her head. No loss of consciousness. Pain is moderate to severe intensity, aggravated with movement and better with being still. No numbness tingling or weakness of upper extremities. No injury anywhere else. Occurred: just prior to arrival Method of Injury: fell Quality: constant Severity of Pain-Max: moderate Severity of Pain-Current: moderate Extremities Pain Location: shoulder: right, arm: left, elbow: right, forearm: right, wrist: right Modifying Factors: Improves With: immobilization, movement Associated Symptoms: none Allergies/Adverse Reactions: ibuprofen Adverse Reaction (Verified 11/01/19 23:26) facial swelling Home Medications: Potassium Chloride 8 meq PO DAILY 03/16/16 [History] Insulin Aspart [Novolog Flexpen] 15 unit SQ TID 09/07/16 [History] Insulin Glargine,Hum.rec.anlog [Lantus Solostar] 44 unit SQ DAILY 09/07/16 [ History] Fluticasone/Vilanterol [Breo Ellipta 100-25 Mcg INH] 1 puff IH DAILY 09/19/18 [ History] Albuterol 2.5 mg/3 ml Neb [Proventil 2.5 mg/3 ml Neb] 2.5 mg IH Q4-6HPRN PRN 05/22/19 [History] Furosemide 40 mg [Lasix 40 MG] 40 mg PO DAILY 05/22/19 [History] Clopidogrel Bisulfate [Clopidogrel] 75 mg PO DAILY 11/01/19 [History] Ezetimibe 10 mg PO DAILY 11/01/19 [History] Rosuvastatin Calcium 10 mg PO 3XW 11/01/19 [History] Hx Tetanus, Diphtheria Vaccination/Date Given: Yes Hx Influenza Vaccination/Date Given: No Hx Pneumococcal Vaccination/Date Given: Yes Immunizations Up to Date: Yes Travel Risk - International Travel Have you traveled outside of the country in past 3 weeks: No Have you or anyone close to you been diagnosed with or: No Do your reside in a community with a known COVID-19 case?: Yes If Yes where:: [facility] - Coronavirus Screening Has patient experienced Coronavirus symptoms: No - Review of Systems Constitutional: No Symptoms Eyes: No Symptoms Ears, Nose, & Throat: No Symptoms Respiratory: No Symptoms Cardiac: No Symptoms Abdominal/Gastrointestinal: No Symptoms Musculoskeletal: Fall, Injury, Joint Pain, Myalgias, No Back Pain, No Neck Pain Skin: No Symptoms Neurological: No Symptoms Psychological: No Symptoms Endocrine: No Symptoms Hematologic/Lymphatic: No Symptoms Immunological/Allergic: No Symptoms - Past Medical History Pertinent Past Medical History: Yes Neurological History: Migraines ENT History: No Pertinent History Cardiac History: No Pertinent History, High Cholesterol Respiratory History: Asthma, COPD, Pneumonia, Other Endocrine Medical History: Diabetes Type II Musculoskeletal History: Osteoarthritis GI Medical History: No Pertinent History History: No Pertinent History Psycho-Social History: Depression Female Reproductive Disorders: No Pertinent History Other Medical History: sinusitis - Past Surgical History Past Surgical History: Yes Neuro Surgical History: No Pertinent History Cardiac: No Pertinent History Respiratory: Other Gastrointestinal: No Pertinent History Genitourinary: No Pertinent History Musculoskeletal: No Pertinent History, Orthopedic Surgery Female Surgical History: Section Other Surgical History: csection x2. sinus surery X6. vascular surgery right leg - Social History Smoking Status: Current every day smoker How long have you smoked: 44 years Exposure to second hand smoke: Yes Drug Use: none Patient Lives Alone: No - Female History Hx Last Menstrual Period: tubes tied Hx Now: No - Nursing Vital Signs Nursing Vital Signs: Initial Vital Signs Temperature 98.3 F 11/01/19 23:13 Pulse Rate 78 11/01/19 23:13 Respiratory Rate 18 11/01/19 23:13 Blood Pressure 138/77 11/01/19 23:13 O2 Sat by Pulse Oximetry 95 11/01/19 23:13 Pain Scale Pain Intensity 9 - Physical Exam General Appearance: no apparent distress Eyes, Ears, Nose, Throat Exam: normal ENT inspection, TMs normal, pharynx normal Neck Exam: normal inspection, non-tender, supple, full range of motion Cardiovascular/Respiratory Exam: chest non-tender, normal breath sounds, regular rate/rhythm Abdominal Exam: non-tender, soft Back Exam: normal inspection Shoulder Exam: normal inspection, limited ROM (Right lower), pain, soft tissue tenderness Elbow/Forearm Exam: normal inspection, limited ROM (Right), pain, soft tissue tenderness Wrist Exam: normal inspection, normal ROM, pain, soft tissue tenderness Hand Exam: normal inspection, non-tender, no evidence of injury Neuro/Tendon Exam: normal sensation, normal motor functions Mental Status Exam: alert, oriented x 3, cooperative Skin Exam: normal color, warm SpO2 Interpretation: normal SpO2: 95 O2 Delivery: Room Air - Course Nursing assessment & vital signs reviewed: Yes Ordered Tests: Active Orders 24 hr Category Date Time Status Isolation, Initiate & Maintain Q4H Care 11/01/19 23:24 Active ELBOW (MINIMUM 3 VIEWS) Stat Exams 11/01/19 00:08 Taken FOREARM Stat Exams 11/01/19 00:07 Taken HUMERUS Stat Exams 11/01/19 00:08 Taken SHOULDER Stat Exams 11/01/19 00:08 Taken WRIST (MIN 3 VIEWS) Stat Exams 11/01/19 00:08 Taken Medication Summary Discontinued Medications Generic Name Dose Route Start Last Admin Trade Name Torie PRN Reason Stop Dose Admin Hydrocodone Bitart/Acetaminophen 1 tab 11/01/19 23:23 11/02/19 00:07 [place] 10/325 Mg Tablet PO 11/01/19 23:24 1 tab STAT ONE Administration Hydrocodone Bitart/Acetaminophen Confirm 11/01/19 23:50 [place] 10/325 Mg Tablet Administered 11/01/19 23:51 Dose 1 tab .ROUTE .STK-MED ONE - Progress Progress: improved, pain not gone completely, re-examined Progress Note: 11/02/19 00:15 59 years old is evaluated for fall. Patient has remarkable tenderness in the right shoulder. X-rays showed neck of humerus none displaced fracture. No dislocation. X-rays of right upper and left upper extremity otherwise are negative. Intact distal neurovascular. she is given pain medication, on reevaluation feeling better. Sling is applied. Recommended outpatient follow- up with Ortho for reevaluation. Discussed signs symptoms of worsening needing return to ER which he seems understanding. She does not have any injury at any other place, do not think needs any further work at this time and stable for discharge. 11/02/19 00:19 Counseled pt/family regarding: diagnosis, need for follow-up, rad results - Departure Departure Disposition: Home Clinical Impression: Humerus surgical neck fracture Qualifiers: Encounter type: initial encounter Fracture type: closed Fracture morphology: unspecified fracture morphology Fracture alignment: nondisplaced Laterality: right Qualified Code(s): S42.214A - Unspecified nondisplaced fracture of surgical neck of right humerus, initial encounter for closed fracture Fall Qualifiers: Encounter type: initial encounter Qualified Code(s): W19.XXXA - Unspecified fall, initial encounter Condition: Stable Critical Care Time: No Referrals: GLENROY CHOI MD [Primary Care Provider] - Follow Up with PCP/3 days NICKIE SAHA NP [NON-STAFF PHY W/O PRIVILEGES] - Follow Up with PCP/3 days Instructions: Shoulder Fracture (DC), Preventing Falls Additional Instructions: Take pain medications as needed. Keep the sling on. Follow-up with Ortho clinic for reevaluation early Monday morning. Return to ER for any worsening. Prescriptions: Hydrocodone/Acetaminophen [[place] 7.5-325 Tablet] 1 each PO Q4-6HPRN PRN 3 Days # 12 tablet MDD 4 PRN Reason: Pain
[2019-11-01] MEDS ORDERED: Norco 10/325 MG Tablet ONE (23:50)
[2019-11-02 00:13] VITALS: BP 169/87; PULSE 75
[2019-11-02] MEDS ORDERED: NORCO 5/325 MG PO PRN (00:14)
[2019-11-02 00:20] VITALS: O2SAT 95
--- NOTE | 2019-11-02 09:11 | XRAY ---
Indication: Pain following fall. Comparison: September 19, 2018. 3 view right shoulder articulation intact with new impacted humeral neck fracture and effusion. Stable osteopenia, tiny acromion process heterotopic ossification, and greater tuberosity spurring.
--- NOTE | 2019-11-02 09:13 | XRAY ---
Indication: Pain following fall. Comparison: None 2 view left shoulder demonstrates osteopenia and tiny medial epicondyle heterotopic ossification. No other bony, articular, or soft tissue abnormalities.
--- NOTE | 2019-11-02 09:16 | XRAY ---
Indication: Pain following fall. Comparison: None 3 view right elbow demonstrates osteopenia and tiny lateral epicondyle/olecranon process spurring. No other bony, articular, or soft tissue abnormalities.
--- NOTE | 2019-11-02 09:16 | XRAY ---
Indication: Pain following fall. Comparison: None 2 view right forearm demonstrates mild osteopenia and mild distal soft tissue swelling. No other bony, articular, or soft tissue abnormalities. Wrist and elbow reported separately.
--- NOTE | 2019-11-02 09:18 | XRAY ---
Indication: Pain following fall. Comparison: None 3 view right wrist demonstrates osteopenia, old 5th metacarpal fracture, and 2 tiny well-circumscribed heterotopic ossifications anterior to lunate/triquetrum either degenerative versus sequela old injury. No other bony, articular, or soft tissue abnormalities.
== END 2019-11-02 00:55 | disposition home or self-care (01) ==
LOC: ED 22:52
DX: S42.214A Unspecified nondisplaced fracture of surgical neck of right humerus, initial encounter for closed fracture (principal); W10.8XXA Fall (on) (from) other stairs and steps, initial encounter; Y93.89 Activity, other specified; Y92.89 Other specified places as the place of occurrence of the external cause; M25.511 Pain in right shoulder; M79.602 Pain in left arm; M25.521 Pain in right elbow; M79.631 Pain in right forearm; M25.531 Pain in right wrist; Z79.899 Other long term (current) drug therapy; E78.00 Pure hypercholesterolemia, unspecified; J44.9 Chronic obstructive pulmonary disease, unspecified; E11.9 Type 2 diabetes mellitus without complications; M19.90 Unspecified osteoarthritis, unspecified site; F32.9 Major depressive disorder, single episode, unspecified; Z72.0 Tobacco use
CPT/HCPCS: 73030; 73060; 73080; 73090; 73110; 99283; A9270-GY

== ENCOUNTER 2020-06-01 10:01 | Inpatient (IN) | payer OTHER, MEDICARE ==
[2020-06-01] MEDS ORDERED: Sodium Chloride 0.9% 1000 ML 1,000 ML IV SCH (10:15)
[2020-06-01] MEDS ORDERED: Sodium Chloride 0.9% 1000 ML 1,000 ML ONE (10:18)
[2020-06-01] MEDS ORDERED: DECADRON 10MG INJ. IV ONE (10:19)
[2020-06-01] MEDS ORDERED: DECADRON 10MG INJ. ONE (10:26)
[2020-06-01 10:31] LABS: Absolute Neutrophil Ct (ANC) 8.04 (1.4-6.9); BASOPHIL % 0.3 % (0.0-0.4); Basophil (Absolute #) 0.03 (0-0.4); Eosinophil % 1.9 % (0.00-5.0); Eosinophil (Absolute #) 0.21 (0-0.5); Hematocrit 35.5 % (35-47); Hemoglobin 11.2 gm/dl (12.0-16.0); Lymphocyte (Absolute #) 1.84 (1.0-4.6); Lymphocytes % 16.9 % (24.0-44.0); Mean Cell Volume 61.8 fl (78-100); Mean Corpuscular Hemoglobin 19.5 pg (26-32); Mean Corpuscular Hgb Concent. 31.5 g/dl (32-36); Mean Platelet Volume 10.5 fl (7.5-11.0); Monocyte (Absolute #) 0.74 (0.0-1.3); Monocytes % 6.8 % (0.0-12.0); Neutrophil % 74.1 % (36.0-66.0); Platelet Count 247 K/mm3 (150-450); Red Blood Count 5.74 M/mm3 (4.1-5.4); Red Cell Distribution Width 19.6 % (11.5-14.0); White Blood Count 10.9 K/mm3 (4.0-10.5)
[2020-06-01 10:39] LABS: ALBUMIN 4.2 g/dL (3.5-5.0); ALKALINE PHOSPHATASE 64 U/L (38-126); ANION GAP 10.7 MEQ/L (5-15); BLOOD UREA NITROGEN 16 mg/dL (7-17); CHLORIDE 101 mmol/L (98-107); Calcium 9.2 mg/dL (8.4-10.2); Carbon Dioxide 30 mmol/L (22-30); Creatinine 1 0.56 mg/dL (0.52-1.04); EST GLOMERULAR FILTRATION RATE > 60.0 ML/MIN; Glucose 159 mg/dL (74-106); MAGNESIUM 2.1 mg/dL (1.6-2.3); SGOT/AST 33 U/L (14-36); SGPT/ALT 23 U/L (0-35); SODIUM 138 mmol/L (137-145); Total Protein 7.6 g/dL (6.3-8.2)
--- NOTE | 2020-06-01 10:43 | XRAY ---
Indication: Short of breath. Suspect Covid 19. Comparison: April 10, 2018. Portable chest demonstrates new diffuse bilateral interstitial alveolar opacities without consolidation/large effusion. Heart is not enlarged. Bony thorax intact.
--- NOTE | 2020-06-01 10:46 | ERPHSYRPT ---
- History of Present Illness Time Seen by Provider: 06/01/20 10:15 Source: patient Exam Limitations: no limitations Patient Subjective Stated Complaint: Pt has been having a hard time breathing for the past 3 days. pt does have COPD Triage Nursing Assessment: Pt presents to ER with complaints of shortness of breath and chest pains. Pt appears in obvious distress. Audible adventitious lung sounds, rhonchi/rales noted throughout and crackles noted at the bases in shirley lungs. Pt has obvious swelling to lower extremities and hands, pitting edema. Pt does have hx of swelling in the extremitities and COPD. Pt hx of smoker. Pt states the past 2-3 days have been miserable and noted febrile upon triage. Pt states has nausea but denies vomiting or diarrhea. Pt is pale and hypoxic upon triage, o2 saturation of 87% on RA, placed on 2L o2 via NC and saturations improved. Pt is alert and oriented x 3 and able to ambulate short distances with assistance. Noted impaired weak gait. Physician History: Patient is a 60-year-old female with history of COPD presents to our ED with shortness of breath and chest pain. Shortness of breath started 3 days ago and has become progressive. Shortness of breath is associated with nausea. No vomiting. Symptoms are mild to moderate in intensity. No specific worsening or improving factors. Patient was hypoxic in triage. O2 sat on room air was 87%. Patient normally does not require oxygen. Patient is a current smoker. No obvious Covid exposures. Patient voices no other complaints or concerns at this time. Allergies/Adverse Reactions: ibuprofen Allergy (Verified 06/01/20 10:11) facial swelling Home Medications: Potassium Chloride 8 meq PO DAILY 03/16/16 [History] Insulin Aspart [Novolog Flexpen] 12 unit SQ TID 09/07/16 [History] Insulin Glargine,Hum.rec.anlog [Lantus Solostar] 48 unit SQ DAILY 09/07/16 [Hist ory] Albuterol 2.5 mg/3 ml Neb [Proventil 2.5 mg/3 ml Neb] 2.5 mg IH Q4-6HPRN PRN 05/22/19 [History] Furosemide 40 mg [Lasix 40 MG] 40 mg PO BID 05/22/19 [History] Clopidogrel Bisulfate [Clopidogrel] 75 mg PO DAILY 11/01/19 [History] Ezetimibe 10 mg PO DAILY 11/01/19 [History] Rosuvastatin Calcium 10 mg PO 3XW 11/01/19 [History] Apremilast [Otezla] 30 mg PO DAILY 06/01/20 [History] Aspirin EC 81 mg [Ecotrin 81 mg] 81 mg PO DAILY 06/01/20 [History] Eszopiclone [Lunesta] 2 mg PO HS 06/01/20 [History] Fluticasone Propion/Salmeterol [Wixela 250-50 Inhub] 1 inh PO BID 06/01/20 [Hi story] Multivitamin [Multi-Vitamin Daily] 1 tab PO DAILY 06/01/20 [History] Hx Tetanus, Diphtheria Vaccination/Date Given: Yes Hx Influenza Vaccination/Date Given: No Hx Pneumococcal Vaccination/Date Given: Yes Travel Risk - International Travel Have you traveled outside of the country in past 3 weeks: No - Coronavirus Screening Are you exhibiting any of the following symptoms?: Yes Symptoms: Fever, Cough: New Onset, Shortness of Breath, Vomiting/Diarrhea, Headaches/Body Aches/Fatigue - Review of Systems Constitutional: No Symptoms, No Fever, No Chills Eyes: No Symptoms Ears, Nose, & Throat: No Symptoms Respiratory: No Symptoms, No Cough, No Dyspnea Cardiac: No Symptoms, No Chest Pain, No Edema, No Syncope Abdominal/Gastrointestinal: No Symptoms, No Abdominal Pain, No Nausea, No Vomiting, No Diarrhea Genitourinary Symptoms: No Symptoms, No Dysuria Musculoskeletal: No Symptoms, No Back Pain, No Neck Pain Skin: No Symptoms, No Rash Neurological: No Symptoms, No Dizziness, No Focal Weakness, No Sensory Changes Psychological: No Symptoms Endocrine: No Symptoms Hematologic/Lymphatic: No Symptoms Immunological/Allergic: No Symptoms All Other Systems: Reviewed and Negative - Past Medical History Pertinent Past Medical History: Yes Neurological History: No Pertinent History ENT History: No Pertinent History Cardiac History: High Cholesterol Respiratory History: COPD, Pneumonia Endocrine Medical History: Diabetes Type II Musculoskeletal History: Osteoarthritis GI Medical History: No Pertinent History History: No Pertinent History Psycho-Social History: Depression Female Reproductive Disorders: No Pertinent History Other Medical History: Dyspnea, Mediastinal adenopathy, GERD, constipation, Lateral epicondylitis, BUE pain, current smoker, CO2 poisoning, UTI, syncope, h yperlipidemia, asthma, lymphedema, sinusitis, thrombophlebitis leg, depression, x2, sinus surgery x6, vascular surgery (RLE) - Past Surgical History Past Surgical History: Yes Neuro Surgical History: No Pertinent History Cardiac: No Pertinent History Respiratory: Other Gastrointestinal: No Pertinent History Genitourinary: No Pertinent History Musculoskeletal: No Pertinent History, Orthopedic Surgery Female Surgical History: Section Other Surgical History: csection x2. sinus surery X6. vascular surgery right leg. arterial surgery on left leg - Social History Smoking Status: Current every day smoker How long have you smoked: 44 years Exposure to second hand smoke: Yes Drug Use: none Patient Lives Alone: No - Female History Hx Now: No - Nursing Vital Signs Nursing Vital Signs: Initial Vital Signs Temperature 100.4 F 06/01/20 10:01 Pulse Rate 94 H 06/01/20 10:01 Respiratory Rate 24 06/01/20 10:01 Blood Pressure 143/71 06/01/20 10:01 O2 Sat by Pulse Oximetry 96 06/01/20 10:01 Pain Scale Pain Intensity 5 - Physical Exam General Appearance: no apparent distress, alert, other (Mild respiratory distress.) Eye Exam: PERRL/EOMI, eyes nml inspection Ears, Nose, Throat Exam: normal ENT inspection, TMs normal, pharynx normal, moist mucous membranes Neck Exam: normal inspection, non-tender, supple, full range of motion Respiratory Exam: lungs clear, respiratory distress, wheezing (Coarse breath sounds bilaterally with expiratory wheezes.) Cardiovascular Exam: regular rate/rhythm, normal heart sounds, normal peripheral pulses, other (Bilateral lower extremities have 2+ pitting edema. Patient states this finding is chronic.) Gastrointestinal/Abdomen Exam: soft, normal bowel sounds, No tenderness, No mass Back Exam: normal inspection, normal range of motion, No CVA tenderness, No vertebral tenderness Extremity Exam: normal inspection, normal range of motion, pelvis stable Neurologic Exam: alert, oriented x 3, cooperative, normal mood/affect, nml cerebellar function, nml station & gait, sensation nml, No motor deficits Skin Exam: normal color, warm, dry, No rash Lymphatic Exam: No adenopathy SpO2 Interpretation: hypoxic SpO2: 96 O2 Delivery: Nasal Cannula (96% on 2 L nasal cannula.) - Course Nursing assessment & vital signs reviewed: Yes EKG Interpreted by Me: RATE (81), Sinus Rhythm, NORMAL AXIS, NORMAL INTERVALS, Right Bundle Branch Block - Radiology Exams Chest X-ray Interpretation: Teleradiologist Report (Bilateral interstitial alveolar opacities.) - CT Exams Chest CT Interpretation: Tele-radiologist Report (Negative for PE, diffuse bilateral patchy airspace disease without effusion. Possible Covid pneumonia biapical pleural cystic changes prominent subcarinal lymph nodes, benign subcentimeter left lower lobe noncalcified nodule fatty liver splenomegaly and left renal cyst.) Ordered Tests: Active Orders 24 hr Category Date Time Status Parts Department Manager STAT Care 06/01/20 10:12 Active EKG-ER Only STAT Care 06/01/20 10:11 Active IV Insertion STAT Care 06/01/20 10:11 Active Pulse Oximetry (ED) STAT Care 06/01/20 10:11 Active CHEST 1 VIEW (PORTABLE) Stat Exams 06/01/20 10:12 Completed CHEST WITH CONTRAST [CT] Stat Exams 06/01/20 10:40 Completed BNP [NT PRO BNP] Stat Lab 06/01/20 10:53 Completed CBC W DIFF Stat Lab 06/01/20 10:15 Completed CMP Stat Lab 06/01/20 10:15 Completed CULTURE,URINE Stat Lab 06/01/20 10:33 Received D-DIMER QUANTITATIVE Stat Lab 06/01/20 10:15 Completed INFLUENZA A+B YENI Stat Lab 06/01/20 10:40 Completed Lactic Acid Stat Lab 06/01/20 10:11 Completed MAGNESIUM Stat Lab 06/01/20 10:15 Completed TROPONIN Q3H Lab 06/01/20 10:15 Completed TROPONIN Q3H Lab 06/01/20 13:15 Ordered TROPONIN Q3H Lab 06/01/20 16:15 Ordered TROPONIN Q3H Lab 06/01/20 19:15 Ordered TROPONIN Q3H Lab 06/01/20 22:15 Ordered UA W/RFX UR CULTURE Stat Lab 06/01/20 10:33 Completed Transfer Order Routine Transfer 06/01/20 Ordered Medication Summary Generic Name Dose Route Start Last Admin Trade Name Freq PRN Reason Stop Dose Admin Sodium Chloride 1,000 mls @ 100 mls/hr 06/01/20 10:15 06/01/20 10:19 Sodium Chloride 0.9% 1000 Ml IV 07/01/20 10:14 100 mls/hr .Q10H ABDOUL Administration Ceftriaxone Sodium/Dextrose 2 g in 50 mls @ 100 mls/hr 06/01/20 12:19 Rocephin 2 Gm-D5w 50ml Bag IV 06/01/20 12:48 STAT STA Azithromycin / Sodium Chloride 250 mls @ 125 mls/hr 06/01/20 12:19 IV 06/01/20 14:18 STAT ONE Discontinued Medications Generic Name Dose Route Start Last Admin Trade Name Freq PRN Reason Stop Dose Admin Albuterol/Ipratropium 3 ml 06/01/20 12:24 Duoneb 0.5-3 Mg/3 Ml Neb IH 06/01/20 12:25 STAT ONE Dexamethasone Sodium Phosphate 8 mg 06/01/20 10:19 06/01/20 10:28 Decadron 10mg Inj. IV 06/01/20 10:20 8 mg STAT ONE Administration Dexamethasone Sodium Phosphate Confirm 06/01/20 10:26 Decadron 10mg Inj. Administered 06/01/20 10:27 Dose 10 mg .ROUTE .K-MED ONE Lab/Rad Data: Laboratory Result Diagrams 06/01/20 10:15 06/01/20 10:15 Laboratory Results 06/01/20 06/01/20 06/01/20 Range/Units 11:15 10:53 10:40 WBC (4.0-10.5) K/mm3 RBC (4.1-5.4) M/mm3 Hgb (12.0-16.0) gm/dl Hct (35-47) % MCV (78-100) fl MCH (26-32) pg MCHC (32-36) g/dl RDW (11.5-14.0) % Plt Count (150-450) K/mm3 MPV (7.5-11.0) fl Gran % (36.0-66.0) % Eos # (Auto) (0-0.5) Absolute Lymphs (auto) (1.0-4.6) Absolute Monos (auto) (0.0-1.3) Lymphocytes % (24.0-44.0) % Monocytes % (0.0-12.0) % Eosinophils % (0.00-5.0) % Basophils % (0.0-0.4) % Absolute Granulocytes (1.4-6.9) Basophils # (0-0.4) D-Dimer (215-500) ng/mL Sodium (137-145) mmol/L Potassium (3.5-5.1) mmol/L Chloride (98-107) mmol/L Carbon Dioxide (22-30) mmol/L Anion Gap (5-15) MEQ/L BUN (7-17) mg/dL Creatinine (0.52-1.04) mg/dL Estimated GFR ML/MIN Glucose (74-106) mg/dL Lactic Acid (0.4-2.0) Calcium (8.4-10.2) mg/dL Magnesium (1.6-2.3) mg/dL Total Bilirubin (0.2-1.3) mg/dL AST (14-36) U/L ALT (0-35) U/L Alkaline Phosphatase (38-126) U/L Troponin I (0.000-0.034) ng/mL NT-Pro-B Natriuret Pep 193 (0-900) pg/mL Serum Total Protein (6.3-8.2) g/dL Albumin (3.5-5.0) g/dL Urine Color (YELLOW) Urine Appearance (CLEAR) Urine pH (5-6) Ur Specific [place] (1.005-1.025) Urine Protein (Negative) Urine Ketones (NEGATIVE) Urine Blood (0-5) Hao/ul Urine Nitrite (NEGATIVE) Urine Bilirubin (NEGATIVE) Urine Urobilinogen (0-1) mg/dL Ur Leukocyte Esterase (NEGATIVE) Urine WBC (Auto) (0-5) /HPF Urine RBC (Auto) (0-2) /HPF U Epithel Cells (Auto) (FEW) /HPF Urine Bacteria (Auto) (NEGATIVE) /HPF Urine Culture Reflexed (NO) Urine Glucose (NEGATIVE) mg/dL Influenza Type A Ag NEGATIVE (NEGATIVE) Influenza Type B Ag NEGATIVE (NEGATIVE) SARS-CoV-2 (PCR) NEGATIVE (NEGATIVE) 06/01/20 06/01/20 06/01/20 Range/Units 10:33 10:15 10:15 WBC (4.0-10.5) K/mm3 RBC (4.1-5.4) M/mm3 Hgb (12.0-16.0) gm/dl Hct (35-47) % MCV (78-100) fl MCH (26-32) pg MCHC (32-36) g/dl RDW (11.5-14.0) % Plt Count (150-450) K/mm3 MPV (7.5-11.0) fl Gran % (36.0-66.0) % Eos # (Auto) (0-0.5) Absolute Lymphs (auto) (1.0-4.6) Absolute Monos (auto) (0.0-1.3) Lymphocytes % (24.0-44.0) % Monocytes % (0.0-12.0) % Eosinophils % (0.00-5.0) % Basophils % (0.0-0.4) % Absolute Granulocytes (1.4-6.9) Basophils # (0-0.4) D-Dimer 659 H* (215-500) ng/mL Sodium (137-145) mmol/L Potassium (3.5-5.1) mmol/L Chloride (98-107) mmol/L Carbon Dioxide (22-30) mmol/L Anion Gap (5-15) MEQ/L BUN (7-17) mg/dL Creatinine (0.52-1.04) mg/dL Estimated GFR ML/MIN Glucose (74-106) mg/dL Lactic Acid (0.4-2.0) Calcium (8.4-10.2) mg/dL Magnesium (1.6-2.3) mg/dL Total Bilirubin (0.2-1.3) mg/dL AST (14-36) U/L ALT (0-35) U/L Alkaline Phosphatase (38-126) U/L Troponin I < 0.012 (0.000-0.034) ng/mL NT-Pro-B Natriuret Pep (0-900) pg/mL Serum Total Protein (6.3-8.2) g/dL Albumin (3.5-5.0) g/dL Urine Color YELLOW (YELLOW) Urine Appearance CLEAR (CLEAR) Urine pH 6.0 (5-6) Ur Specific [place] 1.009 (1.005-1.025) Urine Protein NEGATIVE (Negative) Urine Ketones NEGATIVE (NEGATIVE) Urine Blood SMALL (0-5) Hao/ul Urine Nitrite NEGATIVE (NEGATIVE) Urine Bilirubin NEGATIVE (NEGATIVE) Urine Urobilinogen NEGATIVE (0-1) mg/dL Ur Leukocyte Esterase NEGATIVE (NEGATIVE) Urine WBC (Auto) NONE (0-5) /HPF Urine RBC (Auto) NONE (0-2) /HPF U Epithel Cells (Auto) RARE (FEW) /HPF Urine Bacteria (Auto) NONE (NEGATIVE) /HPF Urine Culture Reflexed ORDERED SEPARATELY (NO) Urine Glucose NEGATIVE (NEGATIVE) mg/dL Influenza Type A Ag (NEGATIVE) Influenza Type B Ag (NEGATIVE) SARS-CoV-2 (PCR) (NEGATIVE) 06/01/20 06/01/20 06/01/20 Range/Units 10:15 10:15 10:11 WBC 10.9 H (4.0-10.5) K/mm3 RBC 5.74 H (4.1-5.4) M/mm3 Hgb 11.2 L (12.0-16.0) gm/dl Hct 35.5 (35-47) % MCV 61.8 L (78-100) fl MCH 19.5 L (26-32) pg MCHC 31.5 L (32-36) g/dl RDW 19.6 H (11.5-14.0) % Plt Count 247 (150-450) K/mm3 MPV 10.5 (7.5-11.0) fl Gran % 74.1 H (36.0-66.0) % Eos # (Auto) 0.21 (0-0.5) Absolute Lymphs (auto) 1.84 (1.0-4.6) Absolute Monos (auto) 0.74 (0.0-1.3) Lymphocytes % 16.9 L (24.0-44.0) % Monocytes % 6.8 (0.0-12.0) % Eosinophils % 1.9 (0.00-5.0) % Basophils % 0.3 (0.0-0.4) % Absolute Granulocytes 8.04 H (1.4-6.9) Basophils # 0.03 (0-0.4) D-Dimer (215-500) ng/mL Sodium 138 (137-145) mmol/L Potassium 4.0 (3.5-5.1) mmol/L Chloride 101 (98-107) mmol/L Carbon Dioxide 30 (22-30) mmol/L Anion Gap 10.7 (5-15) MEQ/L BUN 16 (7-17) mg/dL Creatinine 0.56 (0.52-1.04) mg/dL Estimated GFR > 60.0 ML/MIN Glucose 159 H (74-106) mg/dL Lactic Acid 2.0 (0.4-2.0) Calcium 9.2 (8.4-10.2) mg/dL Magnesium 2.1 (1.6-2.3) mg/dL Total Bilirubin 0.70 (0.2-1.3) mg/dL AST 33 (14-36) U/L ALT 23 (0-35) U/L Alkaline Phosphatase 64 (38-126) U/L Troponin I (0.000-0.034) ng/mL NT-Pro-B Natriuret Pep (0-900) pg/mL Serum Total Protein 7.6 (6.3-8.2) g/dL Albumin 4.2 (3.5-5.0) g/dL Urine Color (YELLOW) Urine Appearance (CLEAR) Urine pH (5-6) Ur Specific [place] (1.005-1.025) Urine Protein (Negative) Urine Ketones (NEGATIVE) Urine Blood (0-5) Hao/ul Urine Nitrite (NEGATIVE) Urine Bilirubin (NEGATIVE) Urine Urobilinogen (0-1) mg/dL Ur Leukocyte Esterase (NEGATIVE) Urine WBC (Auto) (0-5) /HPF Urine RBC (Auto) (0-2) /HPF U Epithel Cells (Auto) (FEW) /HPF Urine Bacteria (Auto) (NEGATIVE) /HPF Urine Culture Reflexed (NO) Urine Glucose (NEGATIVE) mg/dL Influenza Type A Ag (NEGATIVE) Influenza Type B Ag (NEGATIVE) SARS-CoV-2 (PCR) (NEGATIVE) - Progress Progress: improved Progress Note: 06/01/20 12:32 Patient reassessed. Saturations on 2 L is 95%. Patient tested Covid negative. Will treat for COPD exacerbation. Blood cultures obtained. Antibiotics administered. DuoNeb ordered. Case discussed with Dr. Choi who accepts admission to observation. Plan of care discussed with patient. She agrees to admission to [facility] for further evaluation and treatment. Patient voices no other complaints concerns at this time. Discussed with Dr.: Aster Will see patient in: hospital (observation) Counseled pt/family regarding: lab results, diagnosis, rad results, smoking cessation - Departure Departure Disposition: Observation Clinical Impression: Hypoxia, Wheezing, Microcytic anemia, COPD exacerbation, Lung nodule, Hepatic steatosis, Renal cyst, Splenomegaly Fever Qualifiers: Encounter type: initial encounter Condition: Stable Critical Care Time: No Referrals: GLENROY CHOI MD [Primary Care Provider] - Instructions: Chronic Obstructive Pulmonary Disease
[2020-06-01 11:15] LABS: Appearance CLEAR (CLEAR); Bilirubin NEGATIVE (NEGATIVE); Blood SMALL Ery/ul (0-5); Epithelial Cells RARE /HPF (FEW); Glucose NEGATIVE (NEGATIVE); Ketones NEGATIVE (NEGATIVE); Leukocyte Esterase NEGATIVE (NEGATIVE); Nitrite NEGATIVE (NEGATIVE); Protein,Urine Dip NEGATIVE (Negative); Specific Gravity 1.009 (1.005-1.025); Urobilinogen NEGATIVE mg/dL (0-1)
[2020-06-01 11:32] LABS: INFLUENZA A NEGATIVE (NEGATIVE); INFLUENZA B NEGATIVE (NEGATIVE)
--- NOTE | 2020-06-01 11:43 | XRAY ---
Indication: Fever, cough, and elevated d-dimer. Suspect Covid 19. Multiple contiguous axial images obtained through the chest using 100 cc Isovue 370 contrast and PE protocol. Comparison: March 17, 2018. There is good opacification of the pulmonary arteries to include the lobar and segmental branches. Again no pulmonary embolus. Heart is not enlarged. Aorta is normal in course and caliber. Stable prominent subcarinal lymph nodes, largest 1.6 x 2.0 cm. No new pathologic mediastinal/hilar lymphadenopathy. Lungs again demonstrates bilateral patchy airspace disease, more diffuse/multifocal. No effusion. Stable biapical subpleural cystic changes and subsegmental left lower lobe subpleural noncalcified nodule. Bony thorax intact again with minimal degenerative changes throughout the spine. Limited upper abdomen again demonstrates mild fatty liver, 13.5 cm splenomegaly, and 1 cm left renal cyst. Impression: 1. Continued negative pulmonary embolus. 2. More diffuse bilateral patchy airspace disease without effusion. Imaging features can be seen with Covid 19 pneumonia, though are nonspecific and can occur with a variety of infectious and noninfectious processes. 3. Again incidental biapical subpleural cystic changes, prominent subcarinal lymph nodes, benign subcentimeter left lower lobe noncalcified nodule, fatty liver, splenomegaly, and left renal cyst.
[2020-06-01] MEDS ORDERED: ZITHROMAX IV 500 MG*** 0 MG in Sodium Chloride 0.9% 250 ML 250 ML IV ONE (12:19)
[2020-06-01] MEDS ORDERED: ROCEPHIN 2 Gm-D5w 50ML BAG** 2 G/50 ML IVPB IV STA (12:19)
[2020-06-01] MEDS ORDERED: DUONEB 0.5-3 MG/3 ml Neb IH ONE ×2 (12:24→12:32)
[2020-06-01] MEDS ORDERED: ROCEPHIN 2 Gm-D5w 50ML BAG** 2 G/50 ML IVPB IV ONE (12:46)
[2020-06-01] MEDS: PROVENTIL 2.5 MG/3 ML NEB IH SCH (18:42)
[2020-06-01] MEDS: Advair Hfa 115/21 Common canister IH SCH (18:48)
[2020-06-01] MEDS: Sodium Chloride 0.9% 1000 ML 1,000 ML IV SCH (22:00)
[2020-06-02 04:55] LABS: Mean Cell Volume 62.6 fl (78-100); Mean Corpuscular Hgb Concent. 30.3 g/dl (32-36); Mean Platelet Volume 10.1 fl (7.5-11.0); Platelet Count 235 K/mm3 (150-450); Red Blood Count 5.27 M/mm3 (4.1-5.4); Red Cell Distribution Width 18.9 % (11.5-14.0); White Blood Count 10.7 K/mm3 (4.0-10.5)
[2020-06-02 05:08] LABS: ALKALINE PHOSPHATASE 69 U/L (38-126); BLOOD UREA NITROGEN 18 mg/dL (7-17); CHLORIDE 102 mmol/L (98-107); Calcium 9.4 mg/dL (8.4-10.2); Carbon Dioxide 31 mmol/L (22-30); Creatinine 1 0.53 mg/dL (0.52-1.04); EST GLOMERULAR FILTRATION RATE > 60.0 ML/MIN; Glucose 143 mg/dL (74-106); Potassium 4.5 mmol/L (3.5-5.1); SGOT/AST 19 U/L (14-36); SGPT/ALT 20 U/L (0-35); SODIUM 138 mmol/L (137-145); Total Protein 7.4 g/dL (6.3-8.2)
[2020-06-02] MEDS: PROVENTIL 2.5 MG/3 ML NEB IH SCH ×4 (05:12→21:02)
[2020-06-02] MEDS: Advair Hfa 115/21 Common canister IH SCH ×2 (05:12→21:02)
[2020-06-02 06:33] LABS: Slide Review YES
[2020-06-02] MEDS ORDERED: INSULIN ASPART 12 UNIT SQ SCH ×2 (08:00→12:00)
[2020-06-02] MEDS: HUMALOG SQ SCH ×2 (08:33→12:00)
[2020-06-02] MEDS: Lantus Insulin SQ SCH (09:51)
[2020-06-02] MEDS: KENALOG 0.1% CREAM 15 GM TP SCH ×2 (09:51→22:59)
[2020-06-02] MEDS: Klor Con 10 MEQ PO SCH (09:51)
[2020-06-02] MEDS: ECOTRIN 81 MG PO SCH (09:51)
[2020-06-02] MEDS: PLAVIX 75 MG Tablet PO SCH (09:52)
[2020-06-02] MEDS: ROCEPHIN 1 Gm-D5w 50 ml Bag** 1 G/50 ML IVPB IV SCH (09:52)
[2020-06-02] MEDS: Lasix 40 MG PO SCH ×2 (09:52→17:32)
[2020-06-02] MEDS: Zetia 10 MG PO SCH (09:53)
[2020-06-02] MEDS: THERAGRAN MULTIVITAMIN PO SCH (09:53)
[2020-06-02] MEDS ORDERED: APREMILAST 30 MG PO SCH (10:00)
[2020-06-02] MEDS ORDERED: INSULIN GLARGINE HUM REC ANLOG 48 UNIT SQ SCH (10:00)
[2020-06-02] MEDS ORDERED: NON-FORMULARY ITEM (Potassium Chloride [Potassium Chloride] 8 MEQ) PO SCH (10:00)
[2020-06-02] MEDS ORDERED: NON-FORMULARY ITEM (Multivitamin [Multi-Vitamin Daily] 1 TAB) PO SCH (10:00)
--- NOTE | 2020-06-02 11:31 | PCM.HP ---
History of Present Illness - Chief Complaint Chief Complaint: c/o shortness of breath for 3-4 days History of Present Illness: is a 60-year-old female with history of COPD presents to our ED with shortness of breath and chest pain. Shortness of breath started 3 days ago and has become progressive. Shortness of breath is associated with nausea. No vomiting. Symptoms are mild to moderate in intensity. No specific worsening or improving factors. Patient was hypoxic in triage. O2 sat on room air was 87%. Patient normally does not require oxygen. Patient is a current smoker. No obvious Covid exposures. Patient voices no other complaints or concerns at this time. - Review of Systems Constitutional: No Fever, No Chills Eyes: No Symptoms Ears, Nose, & Throat: No Symptoms Respiratory: Cough, Orthopnea, Short Of Breath Cardiac: No Chest Pain, No Edema, No Syncope Abdominal/Gastrointestinal: No Abdominal Pain, No Nausea, No Vomiting, No Diarrhea Genitourinary Symptoms: No Dysuria Musculoskeletal: No Back Pain, No Neck Pain Skin: No Rash Neurological: No Dizziness, No Focal Weakness, No Sensory Changes Psychological: No Symptoms Endocrine: No Symptoms Hematologic/Lymphatic: No Symptoms Immunological/Allergic: No Symptoms Medications & Allergies Home Medications: Home Medication List Potassium Chloride 8 meq PO DAILY 03/16/16 [History Confirmed 06/01/20] Insulin Aspart [Novolog Flexpen] 12 unit SQ BREAKFAST 09/07/16 [History Confirmed 06/01/20] Insulin Glargine,Hum.rec.anlog [Lantus Solostar] 48 unit SQ DAILY 09/07/16 [History Confirmed 06/01/20] Albuterol 2.5 mg/3 ml Neb [Proventil 2.5 mg/3 ml Neb] 2.5 mg IH Q4-6HPRN PRN 05/22/19 [History Confirmed 06/01/20] Furosemide 40 mg [Lasix 40 MG] 40 mg PO BID 05/22/19 [History Confirmed 06/01/20] Clopidogrel Bisulfate [Clopidogrel] 75 mg PO DAILY 11/01/19 [History Confirmed 06/01/20] Ezetimibe 10 mg PO DAILY 11/01/19 [History Confirmed 06/01/20] Rosuvastatin Calcium 10 mg PO UD 11/01/19 [History Confirmed 06/01/20] Apremilast [Otezla] 30 mg PO BID 06/01/20 [History Confirmed 06/01/20] Aspirin EC 81 mg [Ecotrin 81 mg] 81 mg PO DAILY 06/01/20 [History Confirmed 06/01/20] Fluticasone Propion/Salmeterol [Wixela 250-50 Inhub] 1 inh PO BID 06/01/20 [History Confirmed 06/01/20] Insulin Aspart [Novolog] 12 unit SQ LUNCH 06/01/20 [History Confirmed 06/01/20] Insulin Aspart [Novolog] 14 unit SQ DINNER 06/01/20 [History Confirmed 06/01/20] Multivitamin [Multi-Vitamin Daily] 1 tab PO DAILY 06/01/20 [History Confirmed 06/01/20] Triamcinolone 0.1% Cream [Kenalog 0.1% Cream 15 gm] 15 gm TP BID 06/01/20 [History Confirmed 06/01/20] Allergies/Adverse Reactions: Allergies Allergy/AdvReac Type Severity Reaction Status Date / Time ibuprofen Allergy facial Verified 06/01/20 10:11 swelling - Past Medical History Past Medical History: Yes Neurological History: No Pertinent History ENT History: No Pertinent History Cardiac History: High Cholesterol Respiratory History: Asthma, COPD, Pneumonia Endocrine Medical History: Diabetes Type II Musculoskelatal History: Osteoarthritis GI Medical History: GERD History: No Pertinent History Pyscho-Social History: Depression Reproductive Disorders: No Pertinent History Comment: Dyspnea, Mediastinal adenopathy, constipation, Lateral epicondylitis, BUE pain, current smoker, CO2 poisoning, UTI, syncope, lymphedema, sinusitis, thrombophlebitis leg, JAMES SHOULDER FX - Female History Are you now?: No - Past Surgical History Past Surgical History: Yes Neuro Surgical History: No Pertinent History Cardiac History: No Pertinent History Respiratory Surgery: Other GI Surgical History: No Pertinent History Genitourinary Surgical Hx: No Pertinent History Musculskeletal Surgical Hx: Orthopedic Surgery Female Surgical History: Section Other Surgical History: csection x2. sinus SURGERY X7. vascular surgery right leg. arterial surgery on left leg - Social History Smoking Status: Former smoker How long have you smoked: 44 years Exposure to second hand smoke: Yes Alcohol: None Drug Use: none - Physical Exam Vital Signs: Vital Signs - 24 hr Temp Pulse Resp BP BP Pulse Ox 06/02/20 10:27 74 18 94 L 06/02/20 08:00 97.9 F 63 20 117/74 92 L 06/02/20 05:15 77 18 96 06/02/20 04:00 97.7 F 68 18 132/59 92 L 06/02/20 00:00 98.1 F 81 19 128/61 97 06/01/20 19:56 98.5 F 76 20 128/59 91 L 06/01/20 19:00 76 18 91 L 06/01/20 16:44 71 20 92 L 06/01/20 15:53 97.9 F 89 06/01/20 15:21 97.7 F 78 19 129/59 90 L 06/01/20 12:39 80 19 90 L 06/01/20 12:34 96 06/01/20 12:05 86 19 109/56 93 L Oxygen-Last 24 hours Oxygen Flowrate (L/min)-RT 2 Oxygen Flowrate (L/min)-RT 2 General Appearance: no apparent distress, alert Neurologic Exam: alert, oriented x 3, cooperative, normal mood/affect, nml cerebellar function, nml station & gait, sensation nml, No motor deficits Eye Exam: PERRL/EOMI, eyes nml inspection Ears, Nose, Throat Exam: normal ENT inspection, TMs normal, pharynx normal, mois t mucous membranes Neck Exam: normal inspection, non-tender, supple, full range of motion Respiratory Exam: diminished breath sounds, accessory muscle use, crackles/rales, rhonchi, wheezing, No respiratory distress Cardiovascular Exam: regular rate/rhythm, normal heart sounds, normal peripheral pulses Gastrointestinal/Abdomen Exam: soft, normal bowel sounds, No tenderness, No mass Back Exam: normal inspection, normal range of motion, No CVA tenderness, No vertebral tenderness Extremity Exam: normal inspection, normal range of motion, pelvis stable Skin Exam: normal color, warm, dry, No rash Lymphatic Exam: No adenopathy Results - Labs Lab/Micro Results: Lab Results-Last 24 Hours 06/01/20 06/01/20 06/01/20 Range/Units 10:40 10:53 11:15 WBC (4.0-10.5) K/mm3 RBC (4.1-5.4) M/mm3 Hgb (12.0-16.0) gm/dl Hct (35-47) % MCV (78-100) fl MCH (26-32) pg MCHC (32-36) g/dl RDW (11.5-14.0) % Plt Count (150-450) K/mm3 MPV (7.5-11.0) fl Sodium (137-145) mmol/L Potassium (3.5-5.1) mmol/L Chloride (98-107) mmol/L Carbon Dioxide (22-30) mmol/L Anion Gap (5-15) MEQ/L BUN (7-17) mg/dL Creatinine (0.52-1.04) mg/dL Estimated GFR ML/MIN Glucose (74-106) mg/dL POC Glucometer (74 to 106) mg/dL Lactic Acid (0.4-2.0) Calcium (8.4-10.2) mg/dL Total Bilirubin (0.2-1.3) mg/dL AST (14-36) U/L ALT (0-35) U/L Alkaline Phosphatase (38-126) U/L Troponin I (0.000-0.034) ng/mL NT-Pro-B Natriuret Pep 193 (0-900) pg/mL Serum Total Protein (6.3-8.2) g/dL Albumin (3.5-5.0) g/dL Influenza Type A Ag NEGATIVE (NEGATIVE) Influenza Type B Ag NEGATIVE (NEGATIVE) SARS-CoV-2 (PCR) NEGATIVE (NEGATIVE) Slides for Path Review 06/01/20 06/01/20 06/01/20 Range/Units 12:35 13:19 15:24 WBC (4.0-10.5) K/mm3 RBC (4.1-5.4) M/mm3 Hgb (12.0-16.0) gm/dl Hct (35-47) % MCV (78-100) fl MCH (26-32) pg MCHC (32-36) g/dl RDW (11.5-14.0) % Plt Count (150-450) K/mm3 MPV (7.5-11.0) fl Sodium (137-145) mmol/L Potassium (3.5-5.1) mmol/L Chloride (98-107) mmol/L Carbon Dioxide (22-30) mmol/L Anion Gap (5-15) MEQ/L BUN (7-17) mg/dL Creatinine (0.52-1.04) mg/dL Estimated GFR ML/MIN Glucose (74-106) mg/dL POC Glucometer 160 H (74 to 106) mg/dL Lactic Acid 1.5 (0.4-2.0) Calcium (8.4-10.2) mg/dL Total Bilirubin (0.2-1.3) mg/dL AST (14-36) U/L ALT (0-35) U/L Alkaline Phosphatase (38-126) U/L Troponin I < 0.012 (0.000-0.034) ng/mL NT-Pro-B Natriuret Pep (0-900) pg/mL Serum Total Protein (6.3-8.2) g/dL Albumin (3.5-5.0) g/dL Influenza Type A Ag (NEGATIVE) Influenza Type B Ag (NEGATIVE) SARS-CoV-2 (PCR) (NEGATIVE) Slides for Path Review 06/01/20 06/01/20 06/01/20 Range/Units 16:20 19:50 21:33 WBC (4.0-10.5) K/mm3 RBC (4.1-5.4) M/mm3 Hgb (12.0-16.0) gm/dl Hct (35-47) % MCV (78-100) fl MCH (26-32) pg MCHC (32-36) g/dl RDW (11.5-14.0) % Plt Count (150-450) K/mm3 MPV (7.5-11.0) fl Sodium (137-145) mmol/L Potassium (3.5-5.1) mmol/L Chloride (98-107) mmol/L Carbon Dioxide (22-30) mmol/L Anion Gap (5-15) MEQ/L BUN (7-17) mg/dL Creatinine (0.52-1.04) mg/dL Estimated GFR ML/MIN Glucose (74-106) mg/dL POC Glucometer 171 H (74 to 106) mg/dL Lactic Acid (0.4-2.0) Calcium (8.4-10.2) mg/dL Total Bilirubin (0.2-1.3) mg/dL AST (14-36) U/L ALT (0-35) U/L Alkaline Phosphatase (38-126) U/L Troponin I < 0.012 < 0.012 (0.000-0.034) ng/mL NT-Pro-B Natriuret Pep (0-900) pg/mL Serum Total Protein (6.3-8.2) g/dL Albumin (3.5-5.0) g/dL Influenza Type A Ag (NEGATIVE) Influenza Type B Ag (NEGATIVE) SARS-CoV-2 (PCR) (NEGATIVE) Slides for Path Review 06/01/20 06/02/20 06/02/20 Range/Units 22:19 04:40 04:40 WBC 10.7 H (4.0-10.5) K/mm3 RBC 5.27 (4.1-5.4) M/mm3 Hgb 10.0 L (12.0-16.0) gm/dl Hct 33.0 L (35-47) % MCV 62.6 L (78-100) fl MCH 19.0 L (26-32) pg MCHC 30.3 L (32-36) g/dl RDW 18.9 H (11.5-14.0) % Plt Count 235 (150-450) K/mm3 MPV 10.1 (7.5-11.0) fl Sodium 138 (137-145) mmol/L Potassium 4.5 (3.5-5.1) mmol/L Chloride 102 (98-107) mmol/L Carbon Dioxide 31 H (22-30) mmol/L Anion Gap 9.0 (5-15) MEQ/L BUN 18 H (7-17) mg/dL Creatinine 0.53 (0.52-1.04) mg/dL Estimated GFR > 60.0 ML/MIN Glucose 143 H (74-106) mg/dL POC Glucometer (74 to 106) mg/dL Lactic Acid (0.4-2.0) Calcium 9.4 (8.4-10.2) mg/dL Total Bilirubin 0.40 (0.2-1.3) mg/dL AST 19 (14-36) U/L ALT 20 (0-35) U/L Alkaline Phosphatase 69 (38-126) U/L Troponin I < 0.012 (0.000-0.034) ng/mL NT-Pro-B Natriuret Pep (0-900) pg/mL Serum Total Protein 7.4 (6.3-8.2) g/dL Albumin 4.0 (3.5-5.0) g/dL Influenza Type A Ag (NEGATIVE) Influenza Type B Ag (NEGATIVE) SARS-CoV-2 (PCR) (NEGATIVE) Slides for Path Review YES 06/02/20 Range/Units 11:18 WBC (4.0-10.5) K/mm3 RBC (4.1-5.4) M/mm3 Hgb (12.0-16.0) gm/dl Hct (35-47) % MCV (78-100) fl MCH (26-32) pg MCHC (32-36) g/dl RDW (11.5-14.0) % Plt Count (150-450) K/mm3 MPV (7.5-11.0) fl Sodium (137-145) mmol/L Potassium (3.5-5.1) mmol/L Chloride (98-107) mmol/L Carbon Dioxide (22-30) mmol/L Anion Gap (5-15) MEQ/L BUN (7-17) mg/dL Creatinine (0.52-1.04) mg/dL Estimated GFR ML/MIN Glucose (74-106) mg/dL POC Glucometer 111 H (74 to 106) mg/dL Lactic Acid (0.4-2.0) Calcium (8.4-10.2) mg/dL Total Bilirubin (0.2-1.3) mg/dL AST (14-36) U/L ALT (0-35) U/L Alkaline Phosphatase (38-126) U/L Troponin I (0.000-0.034) ng/mL NT-Pro-B Natriuret Pep (0-900) pg/mL Serum Total Protein (6.3-8.2) g/dL Albumin (3.5-5.0) g/dL Influenza Type A Ag (NEGATIVE) Influenza Type B Ag (NEGATIVE) SARS-CoV-2 (PCR) (NEGATIVE) Slides for Path Review Microbiology 06/01/20 10:33 Urine Culture - Preliminary Clean Catch Midstream NO GROWTH TO DATE Accuchecks Date 06/02/20 Date 06/01/20 Time 21:33 - Radiology Impressions Radiology Exams & Impressions: Radiology Procedures Category Date Time Status CHEST 1 VIEW (PORTABLE) Stat Exams 06/01/20 10:12 Completed CHEST WITH CONTRAST [CT] Stat Exams 06/01/20 10:40 Completed - Other Procedures and Tests Respiratory Therapy 06/01/20 16:39 Oxygen Nasal Cannula 2 lpm 06/01/20 16:40 Respiratory Therapy Assessment DAILY Assessment/Plan (1) COPD exacerbation Current Visit: Yes Status: Acute Assessment & Plan: Chief Complaint Diagnosis COPD exacerbation Allergies Allergy/AdvReac Type Severity Reaction Status Date / Time ibuprofen Allergy facial Verified 06/01/20 10:11 swelling Vital Signs (Last 24 hours) Temp Pulse Resp BP BP Pulse Ox 06/02/20 10:27 74 18 94 L 06/02/20 08:00 97.9 F 63 20 117/74 92 L 06/02/20 05:15 77 18 96 06/02/20 04:00 97.7 F 68 18 132/59 92 L 06/02/20 00:00 98.1 F 81 19 128/61 97 06/01/20 19:56 98.5 F 76 20 128/59 91 L 06/01/20 19:00 76 18 91 L 06/01/20 16:44 71 20 92 L 06/01/20 15:53 97.9 F 89 06/01/20 15:21 97.7 F 78 19 129/59 90 L 06/01/20 12:39 80 19 90 L 06/01/20 12:34 96 06/01/20 12:05 86 19 109/56 93 L Home Medications Medication Instructions Recorded Confirmed Last Taken Type Apremilast [Otezla] 30 mg PO BID 06/01/20 06/01/20 06/01/20 History Aspirin EC 81 mg [Ecotrin 81 81 mg PO DAILY 06/01/20 06/01/20 06/01/20 History mg] Fluticasone Propion/Salmeterol 1 inh PO BID 06/01/20 06/01/20 06/01/20 History [Wixela 250-50 Inhub] Insulin Aspart [Novolog] 12 unit SQ LUNCH 06/01/20 06/01/20 05/31/20 History Insulin Aspart [Novolog] 14 unit SQ DINNER 06/01/20 06/01/20 05/31/20 History Multivitamin [Multi-Vitamin Daily] 1 tab PO DAILY 06/01/20 06/01/20 06/01/20 History Triamcinolone 0.1% Cream 15 gm TP BID 06/01/20 06/01/20 06/01/20 History [Kenalog 0.1% Cream 15 gm] Current Medications Generic Name Dose Route Start Last Admin Trade Name Zanderq PRN Reason Stop Dose Admin Albuterol Sulfate 2.5 mg 06/01/20 19:00 06/02/20 10:26 Proventil 2.5 Mg/3 Ml Neb IH 07/01/20 18:59 2.5 mg QIDRT ABDOUL Administration Aspirin 81 mg 06/02/20 10:00 06/02/20 09:51 Ecotrin 81 Mg PO 07/02/20 09:59 81 mg DAILY ABDOUL Administration Clopidogrel Bisulfate 75 mg 06/02/20 10:00 06/02/20 09:52 Plavix 75 Mg Tablet PO 07/02/20 09:59 75 mg DAILY ABDOUL Administration Ezetimibe 10 mg 06/02/20 10:00 06/02/20 09:53 Zetia 10 Mg PO 07/02/20 09:59 10 mg DAILY ABDOUL Administration Furosemide 40 mg 06/02/20 10:00 06/02/20 09:52 Lasix 40 Mg PO 07/02/20 09:59 40 mg BID DIURETIC ABDOUL Administration Ceftriaxone Sodium/Dextrose 1 g in 50 mls @ 100 mls/hr 06/02/20 10:00 06/02/20 09:52 Rocephin 1 Gm-D5w 50 Ml Bag IV 07/02/20 09:59 100 mls/hr Q24H10 ABDOUL Administration Sodium Chloride 1,000 mls @ 20 mls/hr 06/01/20 20:30 06/01/20 22:00 Sodium Chloride 0.9% 1000 Ml IV 07/01/20 20:29 20 mls/hr .Q24H ABDOUL Administration Insulin Glargine 48 unit 06/02/20 10:00 06/02/20 09:51 Lantus Insulin SQ 07/02/20 09:59 48 unit DAILY ABDOUL Administration Insulin Human Lispro 12 unit 06/02/20 08:00 06/02/20 08:33 Humalog SQ 07/02/20 07:59 12 unit 0800,1200 ABDOUL Administration Insulin Human Lispro 14 unit 06/02/20 17:00 Humalog SQ 07/02/20 16:59 DINNER ABDOUL Multivitamins Therapeutic 1 tab 06/02/20 10:00 06/02/20 09:53 Theragran Multivitamin PO 07/02/20 09:59 1 tab DAILY ABDOUL Administration Potassium Chloride 10 meq 06/02/20 10:00 06/02/20 09:51 Klor Con 10 Meq PO 07/02/20 09:59 10 meq DAILY ABDOUL Administration Fluticasone/Salmeterol 2 puff 06/01/20 19:00 06/02/20 05:12 Advair Hfa 115/ Common Canister* IH 07/01/20 18:59 2 puff BIDRT ABDOUL Administration Simvastatin 20 mg 06/03/20 10:00 Zocor 20mg PO 07/03/20 09:59 MoWeFr ABDOUL Triamcinolone Acetonide 0 gm 06/02/20 10:00 06/02/20 09:51 Kenalog 0.1% Cream 15 Gm TP 07/02/20 09:59 15 gm BID ABDOUL Administration Discontinued Medications Generic Name Dose Route Start Last Admin Trade Name Torie PRN Reason Stop Dose Admin Albuterol/Ipratropium 3 ml 06/01/20 12:24 06/01/20 12:36 Duoneb 0.5-3 Mg/3 Ml Neb IH 06/01/20 12:25 3 ml STAT ONE Administration Albuterol/Ipratropium Confirm 06/01/20 12:32 Duoneb 0.5-3 Mg/3 Ml Neb Administered 06/01/20 12:33 Dose 3 ml IH .STK-MED ONE Dexamethasone Sodium Phosphate 8 mg 06/01/20 10:19 06/01/20 10:28 Decadron 10mg Inj. IV 06/01/20 10:20 8 mg STAT ONE Administration Dexamethasone Sodium Phosphate Confirm 06/01/20 10:26 Decadron 10mg Inj. Administered 06/01/20 10:27 Dose 10 mg .ROUTE .STK-MED ONE Sodium Chloride 1,000 mls @ 100 mls/hr 06/01/20 10:15 06/01/20 10:19 Sodium Chloride 0.9% 1000 Ml IV 07/01/20 10:14 100 mls/hr .Q10H ABDOUL Administration Ceftriaxone Sodium/Dextrose 2 g in 50 mls @ 100 mls/hr 06/01/20 12:19 06/01/20 13:24 Rocephin 2 Gm-D5w 50ml Bag IV 06/01/20 12:48 Infused STAT STA Infusion Azithromycin / Sodium Chloride 250 mls @ 125 mls/hr 06/01/20 12:19 IV 06/01/20 14:18 STAT ONE Ceftriaxone Sodium/Dextrose Confirm 06/01/20 12:46 Rocephin 2 Gm-D5w 50ml Bag Administered 06/01/20 12:47 Dose 2 g in 50 mls @ ud IV .STK-MED ONE Sodium Chloride Confirm 06/01/20 10:18 Sodium Chloride 0.9% 1000 Ml Administered 06/01/20 10:19 Dose 1,000 mls @ ud .ROUTE .STK-MED ONE Non-Formulary Medication 12 unit 06/02/20 12:00 Insulin Aspart [Novolog] SQ 07/02/20 11:59 LUNCH ABDOUL Intake & Output (Last 24 hours) 05/30/20 05/31/20 06/01/20 06/02/20 11:59 11:59 11:59 11:59 Intake Total 1833 Output Total 1550 Balance 283 Weight 124.284 kg 118.8 kg Microbiology Results (Last 24 hours) 06/01/20 10:33 Clean Catch Midstream Urine Culture - Preliminary NO GROWTH TO DATE Laboratory Results (Last 24 hours) 06/02/20 06/02/20 06/02/20 11:18 04:40 04:40 WBC 10.7 H RBC 5.27 Hgb 10.0 L Hct 33.0 L MCV 62.6 L MCH 19.0 L MCHC 30.3 L RDW 18.9 H Plt Count 235 MPV 10.1 Sodium 138 Potassium 4.5 Chloride 102 Carbon Dioxide 31 H Anion Gap 9.0 BUN 18 H Creatinine 0.53 Estimated GFR > 60.0 Glucose 143 H POC Glucometer 111 H Lactic Acid Calcium 9.4 Total Bilirubin 0.40 AST 19 ALT 20 Alkaline Phosphatase 69 Troponin I Serum Total Protein 7.4 Albumin 4.0 Influenza Type A Ag Influenza Type B Ag SARS-CoV-2 (PCR) Slides for Path Review YES 06/01/20 06/01/20 06/01/20 22:19 21:33 19:50 WBC RBC Hgb Hct MCV MCH MCHC RDW Plt Count MPV Sodium Potassium Chloride Carbon Dioxide Anion Gap BUN Creatinine Estimated GFR Glucose POC Glucometer 171 H Lactic Acid Calcium Total Bilirubin AST ALT Alkaline Phosphatase Troponin I < 0.012 < 0.012 Serum Total Protein Albumin Influenza Type A Ag Influenza Type B Ag SARS-CoV-2 (PCR) Slides for Path Review 06/01/20 06/01/20 06/01/20 16:20 15:24 13:19 WBC RBC Hgb Hct MCV MCH MCHC RDW Plt Count MPV Sodium Potassium Chloride Carbon Dioxide Anion Gap BUN Creatinine Estimated GFR Glucose POC Glucometer 160 H Lactic Acid Calcium Total Bilirubin AST ALT Alkaline Phosphatase Troponin I < 0.012 < 0.012 Serum Total Protein Albumin Influenza Type A Ag Influenza Type B Ag SARS-CoV-2 (PCR) Slides for Path Review 06/01/20 06/01/20 06/01/20 12:35 11:15 10:40 WBC RBC Hgb Hct MCV MCH MCHC RDW Plt Count MPV Sodium Potassium Chloride Carbon Dioxide Anion Gap BUN Creatinine Estimated GFR Glucose POC Glucometer Lactic Acid 1.5 Calcium Total Bilirubin AST ALT Alkaline Phosphatase Troponin I Serum Total Protein Albumin Influenza Type A Ag NEGATIVE Influenza Type B Ag NEGATIVE SARS-CoV-2 (PCR) NEGATIVE Slides for Path Review Orders (Last 24 hours) Category Date Time Status Up With Assistance ROUTINE Activity 06/01/20 14:03 Active Code Status Order ROUTINE Care 06/01/20 14:03 Active IV Care Q6H Care 06/01/20 14:03 Active POCT Glucose Check ACHS Care 06/01/20 22:00 Active POCT Glucose Check Q6H Care 06/01/20 14:[address] in Observation ROUTINE Care 06/01/20 14:03 Active Trevor Chacon, Apply ROUTINE Care 06/01/20 14:03 Active Telemetry q4h Care 06/01/20 14:03 Active Weight,Daily 0600 Care 06/01/20 14:03 Active Consistent Carbohydrate Diet 1800 Calorie Diet 06/01/20 Dinner Active Nutritional Admission Screen ONCE Diet 06/01/20 15:50 Active CHEST WITH CONTRAST [CT] Stat Exams 06/01/20 10:40 Completed BNP [NT PRO BNP] Stat Lab 06/01/20 10:53 Completed CBC AM.LAB Lab 06/02/20 04:40 Completed CMP AM.LAB Lab 06/02/20 04:40 Completed CULTURE,URINE Stat Lab 06/01/20 10:33 Results Hemoglobin A1c Urgent Lab 06/02/20 11:30 Ordered INFLUENZA A+B YENI Stat Lab 06/01/20 10:40 Completed Lactic Acid Stat Lab 06/01/20 12:35 Completed POCT GLUCOSE Stat Lab 06/01/20 15:24 Completed POCT GLUCOSE Stat Lab 06/01/20 21:33 Completed POCT GLUCOSE Stat Lab 06/02/20 11:18 Completed TROPONIN Q3H Lab 06/01/20 13:19 Completed TROPONIN Q3H Lab 06/01/20 16:20 Completed TROPONIN Q3H Lab 06/01/20 19:50 Completed TROPONIN Q3H Lab 06/01/20 22:19 Completed UA W/RFX UR CULTURE Stat Lab 06/01/20 10:33 Completed Albuterol 2.5 mg/3 ml Neb [Proventil 2.5 mg/3 ml Neb Med 06/01/20 19:00 Active ] 2.5 mg IH QIDRT Albuterol/Ipratropium 3ml Neb* [DUONEB 0.5-3 MG/3 ml Med 06/01/20 12:32 Discontinued Neb] 3 ml IH .STK-MED ONE Albuterol/Ipratropium 3ml Neb* [DUONEB 0.5-3 MG/3 ml Med 06/01/20 12:24 Discontinued Neb] 3 ml IH STAT ONE Aspirin EC 81 mg [Ecotrin 81 mg] Med 06/02/20 10:00 Active 81 mg PO DAILY Azithromycin Inj 500 mg [Zithromax IV 500 mg] 0 Med 06/01/20 12:19 Discontinued mg NaCl 0.9% 250 ml [Sodium Chloride 0.9% 250 ML] 250 ml IV STAT Ceftriaxone 1 GM/50 ML PREMIX* [ROCEPHIN 1 Gm-D5w 50 ml Med 06/02/20 10:00 Active Bag] 1 g in 50 ml IV Q24H10 Ceftriaxone 2 GM/50 ML PREMIX* [ROCEPHIN 2 Gm-D5w 50ML Med 06/01/20 12:19 Discontinued BAG] 2 g in 50 ml IV STAT Ceftriaxone 2 GM/50 ML PREMIX* [ROCEPHIN 2 Gm-D5w 50ML Med 06/01/20 12:46 Discontinued BAG] 2 g in 50 ml IV UD Clopidogrel Bisulfate 75 mg [PLAVIX 75 MG Tablet] Med 06/02/20 10:00 Active 75 mg PO DAILY Ezetimibe 10 mg [Zetia 10 MG] Med 06/02/20 10:00 Active 10 mg PO DAILY Fluticasone/Salmeterol 115/21 [Advair Hfa 115/21 Common Med 06/01/20 19:00 Active canister*] 2 puff IH BIDRT Furosemide 40 mg [Lasix 40 MG] Med 06/02/20 10:00 Active 40 mg PO BID DIURETIC Insulin Aspart [Novolog] Med 06/02/20 12:00 Discontinued 12 unit SQ LUNCH Insulin Glargine [Lantus Insulin] Med 06/02/20 10:00 Active 48 unit SQ DAILY Insulin Lispro [Humalog] Med 06/02/20 08:00 Active 12 unit SQ 0800,1200 Insulin Lispro [Humalog] Med 06/02/20 17:00 Active 14 unit SQ DINNER Multivitamins,Therapeutic Tab* [Theragran Multivitamin* Med 06/02/20 10:00 Active ] 1 tab PO DAILY NaCl 0.9% 1000 ml [Sodium Chloride 0.9% 1000 ML] 1,000 Med 06/01/20 20:30 Active ml IV 20 mls/hr Potassium Chloride 10 Meq Tab* [Klor Con 10 MEQ] Med 06/02/20 10:00 Active 10 meq PO DAILY Simvastatin 20Mg [Zocor 20Mg] Med 06/03/20 10:00 Active 20 mg PO MoWeFr Triamcinolone 0.1% Cream [Kenalog 0.1% Cream 15 gm Med 06/02/20 10:00 Active *] 0 gm TP BID Oxygen Nasal Cannula 2 lpm RT 06/01/20 16:39 Active Pulse Oximetry CONTINUOUS RT 06/01/20 14:03 Active RT Screen per Nursing Assess ONCE RT 12/07/20 15:50 Completed Respiratory Therapy Assessment DAILY RT 06/01/20 12:39 Completed Respiratory Therapy Assessment DAILY RT 06/01/20 16:40 Active Code(s): J44.1 - CHRONIC OBSTRUCTIVE PULMONARY DISEASE W (ACUTE) EXACERBATION (2) Fever Current Visit: Yes Status: Acute Qualifiers: Encounter type: initial encounter Code(s): R50.9 - FEVER, UNSPECIFIED
[2020-06-02] MEDS ORDERED: solu-MEDROL 40 MG IV ONE (12:16)
[2020-06-02] MEDS ORDERED: INSULIN ASPART 14 UNIT SQ SCH (17:00)
[2020-06-02] MEDS ORDERED: HUMALOG SQ SCH (17:00)
[2020-06-02] MEDS: solu-MEDROL 40 MG IV SCH (22:59)
[2020-06-03] MEDS: Advair Hfa 115/21 Common canister IH SCH (06:56)
[2020-06-03] MEDS: PROVENTIL 2.5 MG/3 ML NEB IH SCH ×2 (06:56→10:46)
[2020-06-03] MEDS: Sodium Chloride 0.9% 1000 ML 1,000 ML IV SCH (07:33)
[2020-06-03] MEDS: HUMALOG SQ SCH ×2 (07:42→11:40)
[2020-06-03] MEDS: Zetia 10 MG PO SCH (08:31)
[2020-06-03] MEDS: ECOTRIN 81 MG PO SCH (08:31)
[2020-06-03] MEDS: THERAGRAN MULTIVITAMIN PO SCH (08:32)
[2020-06-03] MEDS: ROCEPHIN 1 Gm-D5w 50 ml Bag** 1 G/50 ML IVPB IV SCH (08:32)
[2020-06-03] MEDS: PLAVIX 75 MG Tablet PO SCH (08:32)
[2020-06-03] MEDS: Lantus Insulin SQ SCH (08:32)
[2020-06-03] MEDS: Klor Con 10 MEQ PO SCH (08:32)
[2020-06-03] MEDS: KENALOG 0.1% CREAM 15 GM TP SCH (08:32)
[2020-06-03] MEDS: Lasix 40 MG PO SCH (08:32)
[2020-06-03] MEDS: solu-MEDROL 40 MG IV SCH (08:33)
[2020-06-03] MEDS ORDERED: ZOCOR 20MG PO SCH (10:00)
--- NOTE | 2020-06-03 11:49 | PCM.NOTE ---
Date and Time: 06/03/20 1148 Subjective Assessment: doing better OBJECTIVE DATA Vital Signs: Vital Signs - 24 hr Temp Pulse Resp BP Pulse Ox 06/03/20 10:47 62 18 94 L 06/03/20 07:36 97.8 F 61 18 130/60 95 06/03/20 06:59 57 L 18 95 06/03/20 04:05 97.8 F 63 20 118/56 95 06/03/20 00:00 97.5 F 69 24 115/53 96 06/02/20 21:02 74 20 94 L 06/02/20 20:00 98.4 F 74 20 131/60 92 L 06/02/20 16:00 97.9 F 66 20 119/59 95 06/02/20 14:13 66 20 92 L Oxygen-Last 24 hours Oxygen Flowrate (L/min)-RT 2 Pain Assessment - Last Documented Pain Intensity 0 Intake and Output: Intake & Output 05/31/20 06/01/20 06/02/20 06/03/20 11:59 11:59 11:59 11:59 Intake Total 1833 1932 Output Total 1550 1750 Balance 283 182 Weight 124.284 kg 118.8 kg 120 kg Lab Results: Lab Results-Last 24 Hours 06/02/20 06/02/20 06/02/20 Range/Units 05:00 16:52 21:55 POC Glucometer 164 H 183 H (74 to 106) mg/dL Hemoglobin A1c 5.45 (4.5-6.0) % 06/03/20 06/03/20 06/03/20 Range/Units 07:22 11:28 11:30 POC Glucometer 150 H 238 H 220 H (74 to 106) mg/dL Hemoglobin A1c (4.5-6.0) % Multi-Disciplinary Progress Notes: Multi-Disciplinary Progress Notes 06/03/20 10:40 Case Management Note by Brenda Mccray PATIENT CONTINUES TO DENY ANY NEEDS REGARDING DC AT THIS TIME. WILL SEND IN ORDER FOR HOME OXYGEN WHEN PHYSICIAN ROUNDS Initialized on 06/03/20 10:40 - END OF NOTE 06/03/20 08:12 Case Management Note by Brenda Mccray PATIENT WILL NEED HOME OXYGEN AT 2L/NC 24/7 WITH PORTABILITY DUE COPD- WILL HAVE SIGN DETAILED ORDER AND FAX TO [facility] Initialized on 06/03/20 08:12 - END OF NOTE 1209/20 07:56 Respiratory Note by Carlita Bowers PT'S O2 SAT ON ROOM AIR WHILE AT REST WAS 95%. PT'S O2 SAT ON ROOM AIR WHILE WALKING WAS 82%. PT WAS PLACED ON 2LPM NASAL CANNULA AND WALKED DOWN HALLWAY. O2 SAT WAS 93%. Initialized on 06/03/20 07:56 - END OF NOTE Assessment/Plan (1) COPD exacerbation Current Visit: Yes Status: Resolved Code(s): J44.1 - CHRONIC OBSTRUCTIVE PULMONARY DISEASE W (ACUTE) EXACERBATION (2) Fever Current Visit: Yes Status: Acute Qualifiers: Encounter type: initial encounter Code(s): R50.9 - FEVER, UNSPECIFIED
[2020-06-03 12:12] VITALS: BP 139/61; PULSE 78; O2SAT 95
--- NOTE | 2020-06-04 16:34 | PCM.DS ---
Discharge Summary Date of Admission: 06/01/20 13:57 Admitting Physician: GLENROY CHOI Primary Care Provider: GLENROY CHOI Allergies Allergies ibuprofen Allergy (Verified 06/01/20 10:11) facial swelling Hospital Summary - Hospital Course Hospital Course: Chief Complaint Diagnosis EXAC COPD, PNEUMONIA Allergies Allergy/AdvReac Type Severity Reaction Status Date / Time ibuprofen Allergy facial Verified 06/01/20 10:11 swelling Home Medications Medication Instructions Recorded Confirmed Last Taken Type Apremilast [Otezla] 30 mg PO BID 06/01/20 06/01/20 06/01/20 History Aspirin EC 81 mg [Ecotrin 81 81 mg PO DAILY 06/01/20 06/01/20 06/01/20 History mg] Fluticasone Propion/Salmeterol 1 inh PO BID 06/01/20 06/01/20 06/01/20 History [Wixela 250-50 Inhub] Insulin Aspart [Novolog] 12 unit SQ LUNCH 06/01/20 06/01/20 05/31/20 History Insulin Aspart [Novolog] 14 unit SQ DINNER 06/01/20 06/01/20 05/31/20 History Multivitamin [Multi-Vitamin Daily] 1 tab PO DAILY 06/01/20 06/01/20 06/01/20 History Triamcinolone 0.1% Cream 15 gm TP BID 06/01/20 06/01/20 06/01/20 History [Kenalog 0.1% Cream 15 gm] Azithromycin 250 mg PO UD #6 tablet 06/03/20 Unknown Rx Methylprednisolone Packet 4 mg PO UD #1 packet 06/03/20 Unknown Rx [Medrol Dosepack] Current Medications Discontinued Medications Generic Name Dose Route Start Last Admin Trade Name Freq PRN Reason Stop Dose Admin Albuterol Sulfate 2.5 mg 06/01/20 19:00 06/03/20 10:46 Proventil 2.5 Mg/3 Ml Neb IH 07/01/20 18:59 2.5 mg QIDRT ABDOUL Administration Albuterol/Ipratropium 3 ml 06/01/20 12:24 06/01/20 12:36 Duoneb 0.5-3 Mg/3 Ml Neb IH 06/01/20 12:25 3 ml STAT ONE Administration Albuterol/Ipratropium Confirm 06/01/20 12:32 Duoneb 0.5-3 Mg/3 Ml Neb Administered 06/01/20 12:33 Dose 3 ml IH .STK-MED ONE Aspirin 81 mg 06/02/20 10:00 06/03/20 08:31 Ecotrin 81 Mg PO 07/02/20 09:59 81 mg DAILY ABDOUL Administration Clopidogrel Bisulfate 75 mg 06/02/20 10:00 06/03/20 08:32 Plavix 75 Mg Tablet PO 07/02/20 09:59 75 mg DAILY ABDOUL Administration Dexamethasone Sodium Phosphate 8 mg 06/01/20 10:19 06/01/20 10:28 Decadron 10mg Inj. IV 06/01/20 10:20 8 mg STAT ONE Administration Dexamethasone Sodium Phosphate Confirm 06/01/20 10:26 Decadron 10mg Inj. Administered 06/01/20 10:27 Dose 10 mg .ROUTE .STK-MED ONE Ezetimibe 10 mg 06/02/20 10:00 06/03/20 08:31 Zetia 10 Mg PO 07/02/20 09:59 10 mg DAILY ABDOUL Administration Furosemide 40 mg 06/02/20 10:00 06/03/20 08:32 Lasix 40 Mg PO 07/02/20 09:59 40 mg BID DIURETIC ABDOUL Administration Sodium Chloride 1,000 mls @ 100 mls/hr 06/01/20 10:15 06/01/20 10:19 Sodium Chloride 0.9% 1000 Ml IV 07/01/20 10:14 100 mls/hr .Q10H ABDOUL Administration Ceftriaxone Sodium/Dextrose 2 g in 50 mls @ 100 mls/hr 06/01/20 12:19 06/01/20 13:24 Rocephin 2 Gm-D5w 50ml Bag IV 06/01/20 12:48 Infused STAT STA Infusion Azithromycin / Sodium Chloride 250 mls @ 125 mls/hr 06/01/20 12:19 IV 06/01/20 14:18 STAT ONE Ceftriaxone Sodium/Dextrose Confirm 06/01/20 12:46 Rocephin 2 Gm-D5w 50ml Bag Administered 06/01/20 12:47 Dose 2 g in 50 mls @ ud IV .STK-MED ONE Sodium Chloride Confirm 06/01/20 10:18 Sodium Chloride 0.9% 1000 Ml Administered 06/01/20 10:19 Dose 1,000 mls @ ud .ROUTE .STK-MED ONE Ceftriaxone Sodium/Dextrose 1 g in 50 mls @ 100 mls/hr 06/02/20 10:00 06/03/20 08:32 Rocephin 1 Gm-D5w 50 Ml Bag IV 07/02/20 09:59 100 mls/hr Q24H10 ABDOUL Administration Sodium Chloride 1,000 mls @ 20 mls/hr 06/01/20 20:30 06/03/20 07:33 Sodium Chloride 0.9% 1000 Ml IV 07/01/20 20:29 Not Given .Q24H ABDOUL Insulin Glargine 48 unit 06/02/20 10:00 06/03/20 08:32 Lantus Insulin SQ 07/02/20 09:59 48 unit DAILY ABDOUL Administration Insulin Human Lispro 12 unit 06/02/20 08:00 06/03/20 11:40 Humalog SQ 07/02/20 07:59 12 unit 0800,1200 ABDOUL Administration Insulin Human Lispro 14 unit 06/02/20 17:00 06/02/20 17:32 Humalog SQ 07/02/20 16:59 14 unit DINNER ABDOUL Administration Methylprednisolone Sodium Succinate 40 mg 06/02/20 22:00 06/03/20 08:33 Solu-Medrol 40 Mg IV 07/02/20 21:59 40 mg BID ABDOUL Administration Methylprednisolone Sodium Succinate 40 mg 06/02/20 12:16 06/02/20 12:24 Solu-Medrol 40 Mg IV 06/02/20 12:17 40 mg STAT ONE Administration Multivitamins Therapeutic 1 tab 06/02/20 10:00 06/03/20 08:32 Theragran Multivitamin PO 07/02/20 09:59 1 tab DAILY ABDOUL Administration Non-Formulary Medication 12 unit 06/02/20 12:00 Insulin Aspart [Novolog] SQ 07/02/20 11:59 LUNCH ABDOUL Potassium Chloride 10 meq 06/02/20 10:00 06/03/20 08:32 Klor Con 10 Meq PO 07/02/20 09:59 10 meq DAILY ABDOUL Administration Fluticasone/Salmeterol 2 puff 06/01/20 19:00 06/03/20 06:56 Advair Hfa 115/21 Common Canister* IH 07/01/20 18:59 2 puff BIDRT ABDOUL Administration Simvastatin 20 mg 06/03/20 10:00 06/03/20 08:32 Zocor 20mg PO 07/03/20 09:59 20 mg MoWeFr ABDOUL Administration Triamcinolone Acetonide 0 gm 06/02/20 10:00 06/03/20 08:32 Kenalog 0.1% Cream 15 Gm TP 07/02/20 09:59 1 gm BID ABDOUL Administration Intake & Output (Last 24 hours) 06/02/20 06/03/20 06/04/20 06/05/20 11:59 11:59 11:59 11:59 Intake Total 1833 1932 240 Output Total 1550 1750 Balance 283 182 240 Weight 118.8 kg 120 kg - Vitals & Intake/Output Vital Signs: Vital Signs Temperature 98.2 F 06/03/20 12:00 Pulse Rate 78 06/03/20 12:00 Respiratory Rate 20 06/03/20 12:00 Blood Pressure 139/61 06/03/20 12:00 O2 Sat by Pulse Oximetry 95 06/03/20 12:00 Intake & Output: Intake & Output 06/02/20 06/03/20 06/04/20 06/05/20 11:59 11:59 11:59 11:59 Intake Total 1833 1932 240 Output Total 1550 1750 Balance 283 182 240 Weight 118.8 kg 120 kg - Lab Result Diagrams: 06/02/20 04:40 06/02/20 04:40 Micro Results-Entire Visit: Microbiology 06/01/20 10:33 Urine Culture - Final Clean Catch Midstream MIXED PURNIMA; 3 OR MORE TYPES. NO PREDOMINANT ORGANISM. NO FURTHER WORKUP. PLEASE RESUBMIT IF CLINICALLY INDICATED. - Procedures and Test Procedures and Tests throughout Hospitalization: Therapy Orders & Screens 06/01/20 12:39 Respiratory Therapy Assessment DAILY Comment: 06/01/20 15:50 RT Screen per Nursing Assess ONCE Comment: Protocol Order Physician Instructions: Greater than 3 points order RT Admission Screen Reason For Exam: Triggered on Admission Diagnosis: COPD exacerbation Diagnosis: COPD exacerbation Pneumonia: No Home O2: No Asthma: Yes CHF: No Home CPAP/BIPAP: No Home Nebs/MDI: Yes Total Points: 9 06/01/20 16:39 Oxygen Nasal Cannula 2 lpm Comment: Diagnosis: COPD exacerbation 06/01/20 16:40 Respiratory Therapy Assessment DAILY Comment: Diagnosis: COPD exacerbation Discharge Exam General Appearance: no apparent distress, alert Neurologic Exam: alert, oriented x 3, cooperative, normal mood/affect, nml cerebellar function, sensation nml, No motor deficits Eye Exam: PERRL, EOMI, eyes nml inspection Ears, Nose, Throat Exam: normal ENT inspection, pharynx normal, moist mucous membranes Neck Exam: normal inspection, non-tender, supple, full range of motion Respiratory Exam: normal breath sounds, lungs clear, No respiratory distress Cardiovascular Exam: regular rate/rhythm, normal heart sounds Gastrointestinal/Abdomen Exam: soft, No tenderness, No mass Pelvic Exam: deferred Rectal Exam: deferred Back Exam: normal inspection, normal range of motion, No CVA tenderness, No vertebral tenderness Extremity Exam: normal inspection, normal range of motion Skin Exam: normal color, warm, dry Final Diagnosis/Problem List - Final Discharge Diagnosis/Problem (1) COPD exacerbation Status: Resolved Code(s): J44.1 - CHRONIC OBSTRUCTIVE PULMONARY DISEASE W (ACUTE) EXACERBATION (2) Fever Status: Acute Code(s): R50.9 - FEVER, UNSPECIFIED - Discharge Discharge Date: 06/03/20 Disposition: Home, Self-Care Condition: Stable Prescriptions: New Azithromycin 250 mg PO UD #6 tablet Methylprednisolone Packet [Medrol Dosepack] 4 mg PO UD #1 packet Continue Potassium Chloride 8 meq PO DAILY Insulin Aspart [Novolog Flexpen] 12 unit SQ BREAKFAST Insulin Glargine,Hum.rec.anlog [Lantus Solostar] 48 unit SQ DAILY Furosemide 40 mg [Lasix 40 MG] 40 mg PO BID Albuterol 2.5 mg/3 ml Neb [Proventil 2.5 mg/3 ml Neb] 2.5 mg IH Q4- 6HPRN PRN PRN Reason: Shortness Of Breath/Wheezing Rosuvastatin Calcium 10 mg PO UD Ezetimibe 10 mg PO DAILY Clopidogrel Bisulfate [Clopidogrel] 75 mg PO DAILY Fluticasone Propion/Salmeterol [Wixela 250-50 Inhub] 1 inh PO BID Aspirin EC 81 mg [Ecotrin 81 mg] 81 mg PO DAILY Apremilast [Otezla] 30 mg PO BID Multivitamin [Multi-Vitamin Daily] 1 tab PO DAILY Insulin Aspart [Novolog] 14 unit SQ DINNER Insulin Aspart [Novolog] 12 unit SQ LUNCH Triamcinolone 0.1% Cream [Kenalog 0.1% Cream 15 gm] 15 gm TP BID Instructions: Pneumonia, Adult (DC), Oxygen Therapy, Adult (DC), Quitting Smoking Additional Instructions: YOU NEED TO WEAR 2L/NC AT ALL TIMES. DO NOT SMOKE WITH OXYGEN ON OR AROUND THE OXYGEN. CALL [facility] WHEN YOU GET HOME AT [phone] SO THEY CAN DELIVER YOUR HOME CONCENTRATOR Follow up with: KELSEY VILLAFUERTE [ACTIVE STAFF] - 06/29/20 3:45 pm GLENROY CHOI MD [Primary Care Provider] - 06/11/20 1:30 pm Forms: Work/School Release Form
== END 2020-06-03 14:07 | disposition home or self-care (01) | DRG 192 ==
LOC: ED 10:01 → OBSVTOIN 13:57 → MED SURG 13:57 → UNDODISOB 06-03 14:07
PROVIDERS: ADMIT General Practice; ATTEND General Practice
DX: J44.1 Chronic obstructive pulmonary disease with (acute) exacerbation (principal); R50.9 Fever, unspecified; Z79.899 Other long term (current) drug therapy; E11.9 Type 2 diabetes mellitus without complications; E78.00 Pure hypercholesterolemia, unspecified; Z79.4 Long term (current) use of insulin
CPT/HCPCS: 36415; 71045; 71260; 80053; 81001; 82947; 83036; 83605; 83735; 83880; 84484; 85025; 85027; 85379; 87086; 87400; 93005; 93041; 93268; 94640; 94760; 94762; 96365; 96374; 99285; J0696; J1100; J1817; J2920; J7609; U0003; A9270-GY; G0378

== ENCOUNTER 2020-10-13 21:01 | Inpatient (IN) | payer OTHER, MEDICARE ==
[2020-10-13 21:30] LABS: Absolute Neutrophil Ct (ANC) 9.48 (1.4-6.9); BASOPHIL % 0.1 % (0.0-0.4); Basophil (Absolute #) 0.01 (0-0.4); Eosinophil % 2.1 % (0.00-5.0); Eosinophil (Absolute #) 0.27 (0-0.5); Hematocrit 33.2 % (35-47); Hemoglobin 10.5 gm/dl (12.0-16.0); Lymphocyte (Absolute #) 1.93 (1.0-4.6); Lymphocytes % 15.2 % (24.0-44.0); Mean Cell Volume 61.9 fl (78-100); Mean Corpuscular Hemoglobin 19.6 pg (26-32); Mean Corpuscular Hgb Concent. 31.6 g/dl (32-36); Mean Platelet Volume 10.4 fl (7.5-11.0); Monocyte (Absolute #) 1.03 (0.0-1.3); Monocytes % 8.1 % (0.0-12.0); Neutrophil % 74.5 % (36.0-66.0); Platelet Count 234 K/mm3 (150-450); Red Blood Count 5.36 M/mm3 (4.1-5.4); Red Cell Distribution Width 18.5 % (11.5-14.0); White Blood Count 12.7 K/mm3 (4.0-10.5)
[2020-10-13 21:41] LABS: INR 1.15 (0.8-3.0)
[2020-10-13 21:44] LABS: PTT 28.5 SECONDS (25.3-37.0)
[2020-10-13 21:54] LABS: ALBUMIN 4.2 g/dL (3.5-5.0); ALKALINE PHOSPHATASE 60 U/L (38-126); ANION GAP 11.4 MEQ/L (5-15); BLOOD UREA NITROGEN 19 mg/dL (7-17); CHLORIDE 97 mmol/L (98-107); Calcium 9.1 mg/dL (8.4-10.2); Carbon Dioxide 30 mmol/L (22-30); Creatinine 1 0.63 mg/dL (0.52-1.04); EST GLOMERULAR FILTRATION RATE > 60.0 ML/MIN; Glucose 140 mg/dL (74-106); NT PRO BNP 78.4 pg/mL (0-900); Potassium 3.8 mmol/L (3.5-5.1); SGOT/AST 30 U/L (14-36); SGPT/ALT 23 U/L (0-35); SODIUM 135 mmol/L (137-145); Total Protein 7.2 g/dL (6.3-8.2)
--- NOTE | 2020-10-13 21:55 | ERPHSYRPT ---
- History of Present Illness Source: patient Patient Subjective Stated Complaint: Patient states " I started having increase in SOB this AM and I have given myself my SVN treatment twice today and it hasn't gotten any better." Triage Nursing Assessment: Patient arrived to ED and was assisted to room by RN in W/C. Patient was able to transfer self to bed without assistance. Patient able to follow instructions without difficulty. Patient A/O times 4. Patient lungs diminished with an occassional expiratory wheezes in lower lobes A/P. Patient noted to be SOB and 02 sat was 84-86% on room air. 02 placed at 2L per N/C and 02 sat increased to 93-95%. Patient states she wears 02 at home usually at night at 2L. Patient arrived to ED with no 02 tank and was on room air. Cap refill < 3 seconds. Respiratory regular and easy with exception of excertion. No S/S of acute respiratory distress noted. + BS times times 4 quads. ABD large, non-tender, and obese. Patient denies any pain or discomfort upon palpitation. Patient denies any SOB. Patient with extensive Medical HX. Patient with large amounts of edema in bilateral lower extremities. Patient does have DX Lymphedema. + radial and pedal pulses noted. Skin turgor < 3 seconds. Oral mucosa moist. No S/S of dehydration noted. NEG homans sign noted. Patient denies any pain or discomfort to bilateral legs. Neuro checks WNL. ROM WNL. Patient stated she was running the sweeper and dusting prior to the SOB happened. Physician History: 60 yo wf w h/o COPD who is 2L O2 dep at night presents w dyspnea x 3 days. Dyspnea is worse upon exertion. She has had a worsening cough which is occ productive and a fever. Pt also complains of mid-sternal chest discomfort which is worse w deep breaths. She has had some nausea wo vo miting/diarrhea/melena/hematochezia. Smoked 1ppd until 08/16. Timing/Duration: other (3 days) Activities at Onset: rest Severity of Dyspnea-Max: moderate Severity of Dyspnea-Current: mild Possible Cause: occasional episodes Modifying Factors: Improves With: coughing, exertion Associated Symptoms: denies symptoms, cough, chest pain/discomfort, edema, wheezing, ankle swelling, hemoptysis, calf pain, dizziness, heaviness, leg swelling, productive cough, tightness, tingling hands, No fever, No insomnia, No loss of appetite, No lightheadedness, No weakness, No chills, No heart racing, No lightheadedness, No muscle spasms feet, No muscle spasms hands, No painful breathing, No sweating, No tingling face Allergies/Adverse Reactions: ibuprofen Allergy (Verified 10/13/20 21:39) facial swelling Home Medications: Potassium Chloride 8 meq PO BID 03/16/16 [History] Insulin Aspart [Novolog Flexpen] 7 unit SQ BREAKFAST 09/07/16 [History] Insulin Glargine,Hum.rec.anlog [Lantus Solostar] 50 unit SQ DAILY 09/07/16 [History] Albuterol 2.5 mg/3 ml Neb [Proventil 2.5 mg/3 ml Neb] 2.5 mg IH Q4-6HPRN PRN 05/22/19 [History] Furosemide 40 mg [Lasix 40 MG] 40 mg PO BID 05/22/19 [History] Clopidogrel Bisulfate [Clopidogrel] 75 mg PO DAILY 11/01/19 [History] Ezetimibe 10 mg PO DAILY 11/01/19 [History] Rosuvastatin Calcium 20 mg PO UD 11/01/19 [History] Apremilast [Otezla] 30 mg PO BID 06/01/20 [History] Aspirin EC 81 mg [Ecotrin 81 mg] 81 mg PO DAILY 06/01/20 [History] Fluticasone Propion/Salmeterol [Wixela 250-50 Inhub] 1 inh PO BID 06/01/20 [History] Insulin Aspart [Novolog] 11 unit SQ LUNCH 06/01/20 [History] Insulin Aspart [Novolog] 12 unit SQ DINNER 06/01/20 [History] Multivitamin [Multi-Vitamin Daily] 1 tab PO DAILY 06/01/20 [History] Doxepin HCl 10 mg PO HS 10/13/20 [History] Hx Tetanus, Diphtheria Vaccination/Date Given: Yes Hx Influenza Vaccination/Date Given: Yes Hx Pneumococcal Vaccination/Date Given: No Immunizations Up to Date: Yes Travel Risk - International Travel Have you traveled outside of the country in past 3 weeks: No - Coronavirus Screening Are you exhibiting any of the following symptoms?: No Symptoms: Fever, Cough: New Onset, Shortness of Breath Close contact with a COVID-19 positive Pt in past 14-21 Days: No - Vaccine Status Have you recieved a Covid-19 vaccination: No - Review of Systems Constitutional: No Symptoms, Fatigue, Lethargy Eyes: No Symptoms Ears, Nose, & Throat: No Symptoms, Nose Congestion Respiratory: Cough, Dyspnea, Dyspnea on Exertion (PINON), Wheezing Cardiac: Chest Pain, Edema, No Palpitations, No Syncope, No Orthopnea, No PND Abdominal/Gastrointestinal: Nausea, No Abdominal Pain, No Vomiting, No Diarrhea, No Constipation, No Hematemesis, No Hematochezia, No Melena, No Dysphagia, No Appetite Changes Genitourinary Symptoms: No Symptoms Musculoskeletal: No Symptoms Skin: No Symptoms Neurological: No Symptoms Psychological: No Symptoms Endocrine: No Symptoms Hematologic/Lymphatic: No Symptoms Immunological/Allergic: No Symptoms - Past Medical History Pertinent Past Medical History: Yes Neurological History: No Pertinent History ENT History: No Pertinent History Cardiac History: High Cholesterol Respiratory History: Asthma, COPD, Pneumonia Endocrine Medical History: Diabetes Type II Musculoskeletal History: Osteoarthritis GI Medical History: GERD History: No Pertinent History Psycho-Social History: Depression Female Reproductive Disorders: No Pertinent History Other Medical History: Dyspnea, Mediastinal adenopathy, HX constipation, Lateral epicondylitis, BUE pain, HX CO2 poisoning, HX UTI, syncope, lymphedema, sinusitis, HX Thrombophlebitis leg, JAMES SHOULDER FX - Past Surgical History Past Surgical History: Yes Neuro Surgical History: No Pertinent History Cardiac: No Pertinent History Respiratory: Other Gastrointestinal: No Pertinent History Genitourinary: No Pertinent History Musculoskeletal: Orthopedic Surgery Female Surgical History: Section Other Surgical History: csection x2. sinus SURGERY X7. vascular surgery right leg. arterial surgery on left leg - Social History Smoking Status: Former smoker How long have you smoked: 44 years Exposure to second hand smoke: Yes Drug Use: none Patient Lives Alone: No Significant Family History: no pertinent family hx - Female History Hx Last Menstrual Period: POST - Nursing Vital Signs Nursing Vital Signs: Initial Vital Signs Temperature 100.3 F 10/13/20 21:06 Pulse Rate 90 10/13/20 21:06 Respiratory Rate 20 10/13/20 21:06 Blood Pressure 110/60 10/13/20 21:06 O2 Sat by Pulse Oximetry 93 L 10/13/20 21:06 Pain Scale Pain Intensity 3 - Physical Exam General Appearance: mild distress Eye Exam: PERRL/EOMI, eyes nml inspection Ears, Nose, Throat Exam: hearing grossly normal, normal ENT inspection, normal pharynx, No abnormal TM (R), No abnormal TM (L) Neck Exam: normal inspection, non-tender, supple, No Brudzinski, No Kernig's, No meningismus Respiratory Exam: respiratory distress (Mild), prolonged expirations, wheezing Cardiovascular/Chest Exam: normal heart sounds, regular rate/rhythm, normal peripheral pulses, edema, No murmur, No JVD Abdominal/Gastrointestinal Exam: soft, normal bowel sounds, No tenderness Extremity Exam: non-tender, pedal edema (2+ B chronic) Neurologic Exam: alert, oriented x 3, cooperative, lead caregiver II-XII nml as tested, normal mood/affect, sensation nml Skin Exam: normal color, warm, dry, No rash Lymphatic Exam: No adenopathy SpO2 Interpretation: hypoxic SpO2: 84 O2 Delivery: Room Air (Sats increased to mid 90's w 2L O2 NC) - Course Nursing assessment & vital signs reviewed: Yes EKG Interpreted by Me: RATE (NSR/R88/RBBB/prolonged QTc) - CT Exams Chest CT Interpretation: Tele-radiologist Report (Multifocal ground glass opacities B/COPD) Ordered Tests: Active Orders 24 hr Category Date Time Status Senior Analyst Market Intelligence STAT Care 10/13/20 21:11 Completed EKG-ER Only STAT Care 10/13/20 21:10 Completed Heart-Healthy Diet Diet 10/14/20 Breakfast Active CHEST 1 VIEW (PORTABLE) Stat Exams 10/13/20 21:11 Taken CHEST WITHOUT CONTRAST [CT] Stat Exams 10/13/20 22:26 Taken BLOOD CULTURE Stat Lab 10/14/20 01:10 Received CBC W DIFF AM.LAB Lab 10/14/20 04:00 Ordered CBC W DIFF Stat Lab 10/13/20 21:10 Completed CMP AM.LAB Lab 10/14/20 04:00 Ordered CMP Stat Lab 10/13/20 21:10 Completed NT PRO BNP Stat Lab 10/13/20 21:10 Completed PROTIME WITH INR Stat Lab 10/13/20 21:10 Completed PTT Stat Lab 10/13/20 21:10 Completed TROPONIN Q3H Lab 10/13/20 21:10 Completed TROPONIN Q3H Lab 10/14/20 00:22 Completed TROPONIN Q3H Lab 10/14/20 03:15 Ordered TROPONIN Q3H Lab 10/14/20 06:15 Ordered TROPONIN Q3H Lab 10/14/20 09:15 Ordered Transfer Order Routine Transfer 10/14/20 Completed Medication Summary Generic Name Dose Route Start Last Admin Trade Name Freq PRN Reason Stop Dose Admin Albuterol/Ipratropium 3 ml 10/14/20 00:50 10/14/20 01:50 Duoneb 0.5-3 Mg/3 Ml Neb IH 11/13/20 00:49 3 ml Q4HPRN PRN Administration SHORTNESS OF BREATH/WHEEZING Albuterol/Ipratropium 3 ml 10/14/20 07:00 Duoneb 0.5-3 Mg/3 Ml Neb IH 11/13/20 06:59 QIDRT ABDOUL Enoxaparin Sodium 40 mg 10/14/20 10:00 Enoxaparin Sodium SQ 11/13/20 09:59 DAILY ABDOUL Ceftriaxone Sodium/Dextrose 1 g in 50 mls @ 100 mls/hr 10/14/20 10:00 Rocephin 1 Gm-D5w 50 Ml Bag IV 10/17/20 09:59 Q24H10 ABDOUL Azithromycin 500 mg in 250 mls @ 250 mls/hr 10/14/20 10:00 Zithromax 500 Mg/ 250 Ml Nacl Premix IV 11/13/20 09:59 Q24H10 ABDOUL Methylprednisolone Sodium Succinate 80 mg 10/14/20 01:00 10/14/20 00:56 Solu-Medrol 125 Mg IV 11/13/20 00:59 80 mg Q6H ABDOUL Administration Pantoprazole Sodium 40 mg 10/14/20 10:00 Protonix 40 Mg Iv IV 11/13/20 09:59 Q24H10 ABDOUL Fluticasone/Salmeterol 2 puff 10/14/20 07:00 Advair Hfa 115/ Common Canister* 11/13/20 06:59 BIDRT ABDOUL Discontinued Medications Generic Name Dose Route Start Last Admin Trade Name Freq PRN Reason Stop Dose Admin Ceftriaxone Sodium/Dextrose 1 g in 50 mls @ 100 mls/hr 10/14/20 00:48 10/14/20 00:58 Rocephin 1 Gm-D5w 50 Ml Bag IV 10/14/20 01:17 100 mls/hr STAT STA 100 mls/hr Administration Azithromycin 500 mg in 250 mls @ 250 mls/hr 10/14/20 00:55 10/14/20 01:08 Zithromax 500 Mg/ 250 Ml Nacl Premix IV 10/14/20 01:54 250 mls/hr STAT STA 250 mls/hr Administration Lab/Rad Data: Laboratory Result Diagrams 10/13/20 21:10 10/13/20 21:10 Laboratory Results 10/14/20 10/13/20 10/13/20 Range/Units 00:22 23:43 21:10 WBC (4.0-10.5) K/mm3 RBC (4.1-5.4) M/mm3 Hgb (12.0-16.0) gm/dl Hct (35-47) % MCV (78-100) fl MCH (26-32) pg MCHC (32-36) g/dl RDW (11.5-14.0) % Plt Count (150-450) K/mm3 MPV (7.5-11.0) fl Gran % (36.0-66.0) % Eos # (Auto) (0-0.5) Absolute Lymphs (auto) (1.0-4.6) Absolute Monos (auto) (0.0-1.3) Lymphocytes % (24.0-44.0) % Monocytes % (0.0-12.0) % Eosinophils % (0.00-5.0) % Basophils % (0.0-0.4) % Absolute Granulocytes (1.4-6.9) Basophils # (0-0.4) PT (9.95-12.35) SECONDS INR (0.8-3.0) APTT (25.3-37.0) SECONDS Sodium (137-145) mmol/L Potassium (3.5-5.1) mmol/L Chloride (98-107) mmol/L Carbon Dioxide (22-30) mmol/L Anion Gap (5-15) MEQ/L BUN (7-17) mg/dL Creatinine (0.52-1.04) mg/dL Estimated GFR ML/MIN Glucose (74-106) mg/dL Calcium (8.4-10.2) mg/dL Total Bilirubin (0.2-1.3) mg/dL AST (14-36) U/L ALT (0-35) U/L Alkaline Phosphatase (38-126) U/L Troponin I < 0.012 < 0.012 (0.000-0.034) ng/mL NT-Pro-B Natriuret Pep (0-900) pg/mL Serum Total Protein (6.3-8.2) g/dL Albumin (3.5-5.0) g/dL Influenza Type A Ag NEGATIVE (NEGATIVE) Influenza Type B Ag NEGATIVE (NEGATIVE) RSV (PCR) NEGATIVE (Negative) SARS-CoV-2 (PCR) NEGATIVE (NEGATIVE) 10/13/20 10/13/20 10/13/20 Range/Units 21:10 21:10 21:10 WBC 12.7 H (4.0-10.5) K/mm3 RBC 5.36 (4.1-5.4) M/mm3 Hgb 10.5 L (12.0-16.0) gm/dl Hct 33.2 L (35-47) % MCV 61.9 L (78-100) fl MCH 19.6 L (26-32) pg MCHC 31.6 L (32-36) g/dl RDW 18.5 H (11.5-14.0) % Plt Count 234 (150-450) K/mm3 MPV 10.4 (7.5-11.0) fl Gran % 74.5 H (36.0-66.0) % Eos # (Auto) 0.27 (0-0.5) Absolute Lymphs (auto) 1.93 (1.0-4.6) Absolute Monos (auto) 1.03 (0.0-1.3) Lymphocytes % 15.2 L (24.0-44.0) % Monocytes % 8.1 (0.0-12.0) % Eosinophils % 2.1 (0.00-5.0) % Basophils % 0.1 (0.0-0.4) % Absolute Granulocytes 9.48 H (1.4-6.9) Basophils # 0.01 (0-0.4) PT 13.0 H (9.95-12.35) SECONDS INR 1.15 (0.8-3.0) APTT 28.5 (25.3-37.0) SECONDS Sodium 135 L (137-145) mmol/L Potassium 3.8 (3.5-5.1) mmol/L Chloride 97 L (98-107) mmol/L Carbon Dioxide 30 (22-30) mmol/L Anion Gap 11.4 (5-15) MEQ/L BUN 19 H (7-17) mg/dL Creatinine 0.63 (0.52-1.04) mg/dL Estimated GFR > 60.0 ML/MIN Glucose 140 H (74-106) mg/dL Calcium 9.1 (8.4-10.2) mg/dL Total Bilirubin 0.50 (0.2-1.3) mg/dL AST 30 (14-36) U/L ALT 23 (0-35) U/L Alkaline Phosphatase 60 (38-126) U/L Troponin I (0.000-0.034) ng/mL NT-Pro-B Natriuret Pep 78.4 (0-900) pg/mL Serum Total Protein 7.2 (6.3-8.2) g/dL Albumin 4.2 (3.5-5.0) g/dL Influenza Type A Ag (NEGATIVE) Influenza Type B Ag (NEGATIVE) RSV (PCR) (Negative) SARS-CoV-2 (PCR) (NEGATIVE) - Progress Progress Note: 10/14/20 00:[address] Bocanegra Counseled pt/family regarding: lab results, diagnosis, rad results - Departure Departure Disposition: Observation Clinical Impression: Pneumonia Condition: Stable Critical Care Time: No
[2020-10-14 00:28] LABS: INFLUENZA A NEGATIVE (NEGATIVE); INFLUENZA B NEGATIVE (NEGATIVE); RESPIRATORY SYNCTIAL VIRUS NEGATIVE (Negative)
[2020-10-14] MEDS ORDERED: ROCEPHIN 1 Gm-D5w 50 ml Bag** 1 G/50 ML IVPB IV STA (00:48)
[2020-10-14] MEDS ORDERED: DUONEB 0.5-3 MG/3 ml Neb IH PRN (00:50)
[2020-10-14] MEDS ORDERED: ROCEPHIN 1 Gm-D5w 50 ml Bag** 1 G/50 ML IVPB IV ONE (00:55)
[2020-10-14] MEDS ORDERED: Zithromax 500 MG/ 250 ML NaCl Premix 500 MG/250 ML IVPB IV STA (00:55)
[2020-10-14] MEDS: solu-MEDROL 125 MG IV SCH ×4 (00:56→17:02)
[2020-10-14] MEDS ORDERED: Zithromax 500 MG/ 250 ML NaCl Premix 500 MG/250 ML IVPB IV ONE (01:06)
[2020-10-14 03:51] LABS: Absolute Neutrophil Ct (ANC) 9.04 (1.4-6.9); BASOPHIL % 0.3 % (0.0-0.4); Basophil (Absolute #) 0.03 (0-0.4); Eosinophil (Absolute #) 0.21 (0-0.5); Hematocrit 33.5 % (35-47); Hemoglobin 10.5 gm/dl (12.0-16.0); Lymphocyte (Absolute #) 1.04 (1.0-4.6); Lymphocytes % 9.7 % (24.0-44.0); Mean Cell Volume 62.4 fl (78-100); Mean Corpuscular Hemoglobin 19.6 pg (26-32); Mean Corpuscular Hgb Concent. 31.3 g/dl (32-36); Mean Platelet Volume 10.1 fl (7.5-11.0); Monocyte (Absolute #) 0.44 (0.0-1.3); Monocytes % 4.1 % (0.0-12.0); Neutrophil % 83.9 % (36.0-66.0); Platelet Count 223 K/mm3 (150-450); Red Blood Count 5.37 M/mm3 (4.1-5.4); Red Cell Distribution Width 18.1 % (11.5-14.0); White Blood Count 10.8 K/mm3 (4.0-10.5)
[2020-10-14 03:54] LABS: ALBUMIN 4.1 g/dL (3.5-5.0); ALKALINE PHOSPHATASE 72 U/L (38-126); ANION GAP 8.6 MEQ/L (5-15); BLOOD UREA NITROGEN 16 mg/dL (7-17); CHLORIDE 98 mmol/L (98-107); Calcium 9.1 mg/dL (8.4-10.2); Carbon Dioxide 34 mmol/L (22-30); Creatinine 1 0.64 mg/dL (0.52-1.04); EST GLOMERULAR FILTRATION RATE > 60.0 ML/MIN; Glucose 163 mg/dL (74-106); Potassium 4.1 mmol/L (3.5-5.1); SGOT/AST 22 U/L (14-36); SGPT/ALT 22 U/L (0-35); SODIUM 136 mmol/L (137-145); Total Protein 7.3 g/dL (6.3-8.2)
[2020-10-14] MEDS: DUONEB 0.5-3 MG/3 ml Neb IH SCH ×4 (06:53→15:29)
[2020-10-14] MEDS: Advair Hfa 115/21 Common canister IH SCH ×2 (06:53→21:22)
[2020-10-14] MEDS: Lantus Insulin SQ SCH (08:38)
[2020-10-14] MEDS: HUMALOG SQ SCH ×3 (08:39→16:20)
[2020-10-14] MEDS ORDERED: MEDICATION INTERVENTION MC SCH ×2 (08:45)
--- NOTE | 2020-10-14 08:49 | XRAY ---
Indication: Fever, cough, and short of breath. Multiple contiguous axial images obtained through the chest without contrast. Comparison: June 01, 2020. There is again diffuse bilateral patchy airspace disease without consolidation/effusion. Stable chronic biapical subpleural cystic changes and benign subcentimeter left lower lobe subpleural noncalcified nodule. Heart is not enlarged. Aorta is normal in course and caliber. Stable prominent mediastinal lymph nodes again largest subcarinal measuring 1.6 x 2.0 cm. Bony thorax intact again with minimal degenerative changes throughout the spine. Limited upper abdomen again demonstrates fatty liver, 13.6 on splenomegaly, and 1 cm left renal exophytic cyst. Impression: 1. Again diffuse bilateral patchy airspace disease. Commonly reported imaging features of Covid 19 pneumonia are present. Other processes such as influenza pneumonia and organizing pneumonia, as can be seen with drug toxicity and connective tissue disease, can't cause a similar imaging pattern. 2. Again incidental biapical subpleural cystic changes, prominent mediastinal lymph nodes, benign left lower lobe noncalcified nodule, fatty liver, splenomegaly, and left renal cyst. Comment: Preliminary interpretation was made by [facility]. No critical discrepancy.
--- NOTE | 2020-10-14 08:51 | XRAY ---
Indication: Dyspnea. Comparison: June 01, 2020. Portable chest again demonstrates diffuse bilateral air space disease without consolidation/large effusion. Heart not enlarged. Bony thorax intact.
[2020-10-14] MEDS: ECOTRIN 81 MG PO SCH (09:33)
[2020-10-14] MEDS: PROTONIX 40 MG IV IV SCH (09:33)
[2020-10-14] MEDS: THERAGRAN MULTIVITAMIN PO SCH (09:33)
[2020-10-14] MEDS: PLAVIX 75 MG Tablet PO SCH (09:33)
[2020-10-14] MEDS: ZOCOR 20MG PO SCH (09:33)
[2020-10-14] MEDS: Lasix 40 MG PO SCH ×2 (09:33→16:20)
[2020-10-14] MEDS: Klor Con 10 MEQ PO SCH ×2 (09:34→22:48)
[2020-10-14] MEDS: ENOXAPARIN SODIUM SQ SCH (09:34)
[2020-10-14] MEDS: Zetia 10 MG PO SCH (09:34)
[2020-10-14] MEDS ORDERED: INSULIN GLARGINE HUM REC ANLOG 50 UNIT SQ SCH (10:00)
[2020-10-14] MEDS ORDERED: NON-FORMULARY ITEM (Multivitamin [Multi-Vitamin Daily] 1 TAB) PO SCH (10:00)
[2020-10-14] MEDS ORDERED: ADVAIR 250-50 DISKUS 14 DOSE IH SCH (10:00)
[2020-10-14] MEDS ORDERED: NON-FORMULARY ITEM (Potassium Chloride [Potassium Chloride] 8 MEQ) PO SCH (10:00)
[2020-10-14] MEDS ORDERED: APREMILAST 30 MG PO SCH (10:00)
--- NOTE | 2020-10-14 11:30 | PCM.HP ---
History of Present Illness - Chief Complaint Chief Complaint: c/o short of breath for 2 -3 days History of Present Illness: is a 60 year old female. - Review of Systems Constitutional: No Fever, No Chills Eyes: No Symptoms Ears, Nose, & Throat: No Symptoms Respiratory: No Cough, No Short Of Breath Cardiac: No Chest Pain, No Edema, No Syncope Abdominal/Gastrointestinal: No Abdominal Pain, No Nausea, No Vomiting, No Diarrhea Genitourinary Symptoms: No Dysuria Musculoskeletal: No Back Pain, No Neck Pain Skin: No Rash Neurological: No Dizziness, No Focal Weakness, No Sensory Changes Psychological: No Symptoms Endocrine: No Symptoms Hematologic/Lymphatic: No Symptoms Immunological/Allergic: No Symptoms Medications & Allergies Home Medications: Home Medication List Potassium Chloride 8 meq PO BID 03/16/16 [History Confirmed 10/13/20] Insulin Aspart [Novolog Flexpen] 7 unit SQ BREAKFAST 09/07/16 [History Confirmed 10/13/20] Insulin Glargine,Hum.rec.anlog [Lantus Solostar] 50 unit SQ DAILY 09/07/16 [History Confirmed 10/13/20] Albuterol 2.5 mg/3 ml Neb [Proventil 2.5 mg/3 ml Neb] 2.5 mg IH Q4-6HPRN PRN 05/22/19 [History Confirmed 10/13/20] Furosemide 40 mg [Lasix 40 MG] 40 mg PO BID 05/22/19 [History Confirmed 10/13/20] Clopidogrel Bisulfate [Clopidogrel] 75 mg PO DAILY 11/01/19 [History Confirmed 10/13/20] Ezetimibe 10 mg PO DAILY 11/01/19 [History Confirmed 10/13/20] Rosuvastatin Calcium 20 mg PO UD 11/01/19 [History Confirmed 10/13/20] Apremilast [Otezla] 30 mg PO BID 06/01/20 [History Confirmed 10/13/20] Aspirin EC 81 mg [Ecotrin 81 mg] 81 mg PO DAILY 06/01/20 [History Confirmed 10/13/20] Fluticasone Propion/Salmeterol [Wixela 250-50 Inhub] 1 inh PO BID 06/01/20 [History Confirmed 10/13/20] Insulin Aspart [Novolog] 11 unit SQ LUNCH 06/01/20 [History Confirmed 10/13/20] Insulin Aspart [Novolog] 12 unit SQ DINNER 06/01/20 [History Confirmed 10/13/20] Multivitamin [Multi-Vitamin Daily] 1 tab PO DAILY 06/01/20 [History Confirmed 10/13/20] Doxepin HCl 10 mg PO HS 10/13/20 [History Confirmed 10/13/20] Allergies/Adverse Reactions: Allergies Allergy/AdvReac Type Severity Reaction Status Date / Time ibuprofen Allergy facial Verified 10/13/20 21:39 swelling - Past Medical History Past Medical History: Yes Neurological History: No Pertinent History ENT History: No Pertinent History Cardiac History: High Cholesterol Respiratory History: Asthma, COPD, Pneumonia Endocrine Medical History: Diabetes Type II Musculoskelatal History: Osteoarthritis GI Medical History: GERD History: No Pertinent History Pyscho-Social History: Depression Reproductive Disorders: No Pertinent History Comment: Dyspnea, Mediastinal adenopathy, HX constipation, Lateral epicondylitis, BUE pain, HX CO2 poisoning, HX UTI, syncope, lymphedema, sinusitis, HX Thrombophlebitis leg, JAMES SHOULDER FX - Female History Hx Last Menstrual Period: POST - Past Surgical History Past Surgical History: Yes Neuro Surgical History: No Pertinent History Cardiac History: No Pertinent History Respiratory Surgery: Other GI Surgical History: No Pertinent History Genitourinary Surgical Hx: No Pertinent History Musculskeletal Surgical Hx: Orthopedic Surgery Female Surgical History: Section Other Surgical History: csection x2. sinus SURGERY X7. vascular surgery right leg. arterial surgery on left leg - Social History Smoking Status: Former smoker How long have you smoked: 44 years Exposure to second hand smoke: Yes Alcohol: Occasionally Drug Use: none Significant Family History: no pertinent family hx - Physical Exam Vital Signs: Vital Signs - 24 hr Temp Pulse Resp BP Pulse Ox 10/14/20 07:35 98.4 F 76 16 117/56 92 L 10/14/20 07:09 68 20 90 L 10/14/20 06:00 98.9 F 78 22 132/80 92 L 10/14/20 02:50 84 L 10/14/20 01:55 79 22 93 L 10/14/20 01:54 98.4 F 78 20 129/68 93 L 10/14/20 01:49 98 F 78 18 129/68 94 L 10/14/20 01:00 80 18 133/64 94 L 10/14/20 00:00 75 18 129/59 95 10/13/20 23:00 79 18 113/58 95 10/13/20 22:00 78 16 107/54 95 10/13/20 21:34 20 84 L 10/13/20 21:06 100.3 F 90 20 110/60 93 L General Appearance: no apparent distress, alert Neurologic Exam: alert, oriented x 3, cooperative, normal mood/affect, nml cerebellar function, nml station & gait, sensation nml, No motor deficits Eye Exam: PERRL/EOMI, eyes nml inspection Ears, Nose, Throat Exam: normal ENT inspection, TMs normal, pharynx normal, moist mucous membranes Neck Exam: normal inspection, non-tender, supple, full range of motion Respiratory Exam: respiratory distress, diminished breath sounds, crackles/rales, rhonchi, wheezing Cardiovascular Exam: regular rate/rhythm, normal heart sounds, normal peripheral pulses Gastrointestinal/Abdomen Exam: soft, normal bowel sounds, No tenderness, No mass Back Exam: normal inspection, normal range of motion, No CVA tenderness, No vertebral tenderness Extremity Exam: normal inspection, normal range of motion, pelvis stable Skin Exam: normal color, warm, dry, No rash Lymphatic Exam: No adenopathy Results - Labs Lab/Micro Results: Lab Results-Last 24 Hours 10/13/20 10/13/20 10/13/20 Range/Units 21:10 21:10 21:10 WBC 12.7 H (4.0-10.5) K/mm3 RBC 5.36 (4.1-5.4) M/mm3 Hgb 10.5 L (12.0-16.0) gm/dl Hct 33.2 L (35-47) % MCV 61.9 L (78-100) fl MCH 19.6 L (26-32) pg MCHC 31.6 L (32-36) g/dl RDW 18.5 H (11.5-14.0) % Plt Count 234 (150-450) K/mm3 MPV 10.4 (7.5-11.0) fl Gran % 74.5 H (36.0-66.0) % Eos # (Auto) 0.27 (0-0.5) Absolute Lymphs (auto) 1.93 (1.0-4.6) Absolute Monos (auto) 1.03 (0.0-1.3) Lymphocytes % 15.2 L (24.0-44.0) % Monocytes % 8.1 (0.0-12.0) % Eosinophils % 2.1 (0.00-5.0) % Basophils % 0.1 (0.0-0.4) % Absolute Granulocytes 9.48 H (1.4-6.9) Basophils # 0.01 (0-0.4) PT 13.0 H (9.95-12.35) SECONDS INR 1.15 (0.8-3.0) APTT 28.5 (25.3-37.0) SECONDS Sodium 135 L (137-145) mmol/L Potassium 3.8 (3.5-5.1) mmol/L Chloride 97 L (98-107) mmol/L Carbon Dioxide 30 (22-30) mmol/L Anion Gap 11.4 (5-15) MEQ/L BUN 19 H (7-17) mg/dL Creatinine 0.63 (0.52-1.04) mg/dL Estimated GFR > 60.0 ML/MIN Glucose 140 H (74-106) mg/dL Calcium 9.1 (8.4-10.2) mg/dL Total Bilirubin 0.50 (0.2-1.3) mg/dL AST 30 (14-36) U/L ALT 23 (0-35) U/L Alkaline Phosphatase 60 (38-126) U/L Troponin I (0.000-0.034) ng/mL NT-Pro-B Natriuret Pep 78.4 (0-900) pg/mL Serum Total Protein 7.2 (6.3-8.2) g/dL Albumin 4.2 (3.5-5.0) g/dL Influenza Type A Ag (NEGATIVE) Influenza Type B Ag (NEGATIVE) RSV (PCR) (Negative) SARS-CoV-2 (PCR) (NEGATIVE) 10/13/20 10/13/20 10/14/20 Range/Units 21:10 23:43 00:22 WBC (4.0-10.5) K/mm3 RBC (4.1-5.4) M/mm3 Hgb (12.0-16.0) gm/dl Hct (35-47) % MCV (78-100) fl MCH (26-32) pg MCHC (32-36) g/dl RDW (11.5-14.0) % Plt Count (150-450) K/mm3 MPV (7.5-11.0) fl Gran % (36.0-66.0) % Eos # (Auto) (0-0.5) Absolute Lymphs (auto) (1.0-4.6) Absolute Monos (auto) (0.0-1.3) Lymphocytes % (24.0-44.0) % Monocytes % (0.0-12.0) % Eosinophils % (0.00-5.0) % Basophils % (0.0-0.4) % Absolute Granulocytes (1.4-6.9) Basophils # (0-0.4) PT (9.95-12.35) SECONDS INR (0.8-3.0) APTT (25.3-37.0) SECONDS Sodium (137-145) mmol/L Potassium (3.5-5.1) mmol/L Chloride (98-107) mmol/L Carbon Dioxide (22-30) mmol/L Anion Gap (5-15) MEQ/L BUN (7-17) mg/dL Creatinine (0.52-1.04) mg/dL Estimated GFR ML/MIN Glucose (74-106) mg/dL Calcium (8.4-10.2) mg/dL Total Bilirubin (0.2-1.3) mg/dL AST (14-36) U/L ALT (0-35) U/L Alkaline Phosphatase (38-126) U/L Troponin I < 0.012 < 0.012 (0.000-0.034) ng/mL NT-Pro-B Natriuret Pep (0-900) pg/mL Serum Total Protein (6.3-8.2) g/dL Albumin (3.5-5.0) g/dL Influenza Type A Ag NEGATIVE (NEGATIVE) Influenza Type B Ag NEGATIVE (NEGATIVE) RSV (PCR) NEGATIVE (Negative) SARS-CoV-2 (PCR) NEGATIVE (NEGATIVE) 10/14/20 10/14/20 10/14/20 Range/Units 03:36 03:36 03:36 WBC 10.8 H (4.0-10.5) K/mm3 RBC 5.37 (4.1-5.4) M/mm3 Hgb 10.5 L (12.0-16.0) gm/dl Hct 33.5 L (35-47) % MCV 62.4 L (78-100) fl MCH 19.6 L (26-32) pg MCHC 31.3 L (32-36) g/dl RDW 18.1 H (11.5-14.0) % Plt Count 223 (150-450) K/mm3 MPV 10.1 (7.5-11.0) fl Gran % 83.9 H (36.0-66.0) % Eos # (Auto) 0.21 (0-0.5) Absolute Lymphs (auto) 1.04 (1.0-4.6) Absolute Monos (auto) 0.44 (0.0-1.3) Lymphocytes % 9.7 L (24.0-44.0) % Monocytes % 4.1 (0.0-12.0) % Eosinophils % 2.0 (0.00-5.0) % Basophils % 0.3 (0.0-0.4) % Absolute Granulocytes 9.04 H (1.4-6.9) Basophils # 0.03 (0-0.4) PT (9.95-12.35) SECONDS INR (0.8-3.0) APTT (25.3-37.0) SECONDS Sodium 136 L (137-145) mmol/L Potassium 4.1 (3.5-5.1) mmol/L Chloride 98 (98-107) mmol/L Carbon Dioxide 34 H (22-30) mmol/L Anion Gap 8.6 (5-15) MEQ/L BUN 16 (7-17) mg/dL Creatinine 0.64 (0.52-1.04) mg/dL Estimated GFR > 60.0 ML/MIN Glucose 163 H (74-106) mg/dL Calcium 9.1 (8.4-10.2) mg/dL Total Bilirubin 0.50 (0.2-1.3) mg/dL AST 22 (14-36) U/L ALT 22 (0-35) U/L Alkaline Phosphatase 72 (38-126) U/L Troponin I < 0.012 (0.000-0.034) ng/mL NT-Pro-B Natriuret Pep (0-900) pg/mL Serum Total Protein 7.3 (6.3-8.2) g/dL Albumin 4.1 (3.5-5.0) g/dL Influenza Type A Ag (NEGATIVE) Influenza Type B Ag (NEGATIVE) RSV (PCR) (Negative) SARS-CoV-2 (PCR) (NEGATIVE) 10/14/20 10/14/20 Range/Units 06:50 09:05 WBC (4.0-10.5) K/mm3 RBC (4.1-5.4) M/mm3 Hgb (12.0-16.0) gm/dl Hct (35-47) % MCV (78-100) fl MCH (26-32) pg MCHC (32-36) g/dl RDW (11.5-14.0) % Plt Count (150-450) K/mm3 MPV (7.5-11.0) fl Gran % (36.0-66.0) % Eos # (Auto) (0-0.5) Absolute Lymphs (auto) (1.0-4.6) Absolute Monos (auto) (0.0-1.3) Lymphocytes % (24.0-44.0) % Monocytes % (0.0-12.0) % Eosinophils % (0.00-5.0) % Basophils % (0.0-0.4) % Absolute Granulocytes (1.4-6.9) Basophils # (0-0.4) PT (9.95-12.35) SECONDS INR (0.8-3.0) APTT (25.3-37.0) SECONDS Sodium (137-145) mmol/L Potassium (3.5-5.1) mmol/L Chloride (98-107) mmol/L Carbon Dioxide (22-30) mmol/L Anion Gap (5-15) MEQ/L BUN (7-17) mg/dL Creatinine (0.52-1.04) mg/dL Estimated GFR ML/MIN Glucose (74-106) mg/dL Calcium (8.4-10.2) mg/dL Total Bilirubin (0.2-1.3) mg/dL AST (14-36) U/L ALT (0-35) U/L Alkaline Phosphatase (38-126) U/L Troponin I < 0.012 < 0.012 (0.000-0.034) ng/mL NT-Pro-B Natriuret Pep (0-900) pg/mL Serum Total Protein (6.3-8.2) g/dL Albumin (3.5-5.0) g/dL Influenza Type A Ag (NEGATIVE) Influenza Type B Ag (NEGATIVE) RSV (PCR) (Negative) SARS-CoV-2 (PCR) (NEGATIVE) - Radiology Impressions Radiology Exams & Impressions: Radiology Procedures Category Date Time Status CHEST 1 VIEW (PORTABLE) Stat Exams 10/13/20 21:11 Completed CHEST WITHOUT CONTRAST [CT] Stat Exams 10/13/20 22:[address]/CHEST WITHOUT CONTRAST Indication: Fever, cough, and short of breath. Multiple contiguous axial images obtained through the chest without contrast. Comparison: June 01, 2020. There is again diffuse bilateral patchy airspace disease without consolidation/effusion. Stable chronic biapical subpleural cystic changes and benign subcentimeter left lower lobe subpleural noncalcified nodule. Heart is not enlarged. Aorta is normal in course and caliber. Stable prominent mediastinal lymph nodes again largest subcarinal measuring 1.6 x 2.0 cm. Bony thorax intact again with minimal degenerative changes throughout the spine. Limited upper abdomen again demonstrates fatty liver, 13.6 on splenomegaly, and 1 cm left renal exophytic cyst. Impression: 1. Again diffuse bilateral patchy airspace disease. Commonly reported imaging features of Covid 19 pneumonia are present. Other processes such as influenza pneumonia and organizing pneumonia, as can be seen with drug toxicity and connective tissue disease, can't cause a similar imaging pattern. 2. Again incidental biapical subpleural cystic changes, prominent mediastinal lymph nodes, benign left lower lobe noncalcified nodule, fatty liver, splenomegaly, and left renal cyst. - Other Procedures and Tests Respiratory Therapy 10/14/20 00:50 Oxygen Nasal Cannula 2 lpm 10/14/20 01:54 Respiratory Therapy Assessment DAILY Assessment/Plan (1) Pneumonia Current Visit: Yes Status: Acute Qualifiers: Pneumonia type: due to Pneumococcus Laterality: bilateral Lung location: lower lobe of lung Qualified Code(s): J13 - Pneumonia due to Streptococcus pneumoniae Assessment & Plan: Chief Complaint Diagnosis c/o short of breath for 2 -3 days Allergies Allergy/AdvReac Type Severity Reaction Status Date / Time ibuprofen Allergy facial Verified 10/13/20 21:39 swelling Vital Signs (Last 24 hours) Temp Pulse Resp BP Pulse Ox 10/14/20 07:35 98.4 F 76 16 117/56 92 L 10/14/20 07:09 68 20 90 L 10/14/20 06:00 98.9 F 78 22 132/80 92 L 10/14/20 02:50 84 L 10/14/20 01:55 79 22 93 L 10/14/20 01:54 98.4 F 78 20 129/68 93 L 10/14/20 01:49 98 F 78 18 129/68 94 L 10/14/20 01:00 80 18 133/64 94 L 10/14/20 00:00 75 18 129/59 95 10/13/20 23:00 79 18 113/58 95 10/13/20 22:00 78 16 107/54 95 10/13/20 21:34 20 84 L 10/13/20 21:06 100.3 F 90 20 110/60 93 L Home Medications Medication Instructions Recorded Confirmed Last Taken Type Doxepin HCl 10 mg PO HS 10/13/20 10/13/20 10/12/20 History Current Medications Generic Name Dose Route Start Last Admin Trade Name Freq PRN Reason Stop Dose Admin Albuterol/Ipratropium 3 ml 10/14/20 00:50 10/14/20 01:50 Duoneb 0.5-3 Mg/3 Ml Neb IH 11/13/20 00:49 3 ml Q4HPRN PRN Administration SHORTNESS OF BREATH/WHEEZING Albuterol/Ipratropium 3 ml 10/14/20 07:00 10/14/20 06:53 Duoneb 0.5-3 Mg/3 Ml Neb IH 11/13/20 06:59 3 ml QIDRT ABDOUL Administration Aspirin 81 mg 10/14/20 10:00 10/14/20 09:33 Ecotrin 81 Mg PO 11/13/20 09:59 81 mg DAILY ABDOUL Administration Clopidogrel Bisulfate 75 mg 10/14/20 10:00 10/14/20 09:33 Plavix 75 Mg Tablet PO 11/13/20 09:59 75 mg DAILY ABDOUL Administration Ezetimibe 10 mg 10/14/20 10:00 10/14/20 09:34 Zetia 10 Mg PO 11/13/20 09:59 10 mg DAILY ABDOUL Administration Enoxaparin Sodium 40 mg 10/14/20 10:00 10/14/20 09:34 Enoxaparin Sodium SQ 11/13/20 09:59 40 mg DAILY ABDOUL Administration Furosemide 40 mg 10/14/20 10:00 10/14/20 09:33 Lasix 40 Mg PO 11/13/20 09:59 40 mg BID DIURETIC ABDOUL Administration Ceftriaxone Sodium/Dextrose 1 g in 50 mls @ 100 mls/hr 10/14/20 22:00 Rocephin 1 Gm-D5w 50 Ml Bag IV 10/17/20 21:59 Q24H22 ABDOUL Azithromycin 500 mg in 250 mls @ 250 mls/hr 10/14/20 22:00 Zithromax 500 Mg/ 250 Ml Nacl Premix IV 11/13/20 21:59 Q24H22 [facility] Insulin Glargine 50 unit 10/14/20 08:00 10/14/20 08:38 Lantus Insulin SQ 11/13/20 07:59 50 unit AMINSULIN [facility] Administration Insulin Human Lispro 11 unit 10/14/20 12:00 10/14/20 11:25 Humalog SQ 11/13/20 11:59 26 unit LUNCH ABDOUL Administration Insulin Human Lispro 12 unit 10/14/20 17:00 Humalog SQ 11/13/20 16:59 DINNER ABDOUL Insulin Human Lispro 7 unit 10/14/20 08:00 10/14/20 08:39 Humalog SQ 11/13/20 07:59 22 unit BREAKFAST [facility] Administration Methylprednisolone Sodium Succinate 80 mg 10/14/20 12:00 10/14/20 11:25 Solu-Medrol 125 Mg IV 11/13/20 11:59 80 mg Q6HT ABDOUL Administration Miscellaneous Information 1 each 10/14/20 08:45 Medication Intervention 11/13/20 08:44 .RN TO CHECK WITH PT [facility] Miscellaneous Information 1 each 10/14/20 08:45 Medication Intervention 11/13/20 08:44 .RN TO CHECK WITH PT [facility] Multivitamins Therapeutic 1 tab 10/14/20 10:00 10/14/20 09:33 Theragran Multivitamin PO 11/13/20 09:59 1 tab DAILY ABDOUL Administration Pantoprazole Sodium 40 mg 10/14/20 10:00 10/14/20 09:33 Protonix 40 Mg Iv IV 11/13/20 09:59 40 mg Q24H10 ABDOUL Administration Potassium Chloride 10 meq 10/14/20 10:00 10/14/20 09:34 Klor Con 10 Meq PO 11/13/20 09:59 10 meq BID ABDOUL Administration Fluticasone/Salmeterol 2 puff 10/14/20 07:00 10/14/20 06:53 Advair Hfa 115/ Common Canister* IH 11/13/20 06:59 2 puff BIDRT ABDOUL Administration Simvastatin 40 mg 10/14/20 10:00 10/14/20 09:33 Zocor 20mg PO 11/13/20 09:59 40 mg [id number] ABDOUL Administration Discontinued Medications Generic Name Dose Route Start Last Admin Trade Name Freq PRN Reason Stop Dose Admin Ceftriaxone Sodium/Dextrose 1 g in 50 mls @ 100 mls/hr 10/14/20 00:48 10/14/20 00:58 Rocephin 1 Gm-D5w 50 Ml Bag IV 10/14/20 01:17 100 mls/hr STAT STA 100 mls/hr Administration Azithromycin 500 mg in 250 mls @ 250 mls/hr 10/14/20 00:55 10/14/20 01:08 Zithromax 500 Mg/ 250 Ml Nacl Premix IV 10/14/20 01:54 250 mls/hr STAT STA 250 mls/hr Administration Ceftriaxone Sodium/Dextrose Confirm 10/14/20 00:55 Rocephin 1 Gm-D5w 50 Ml Bag Administered 10/14/20 00:56 Dose 1 g in 50 mls @ ud IV .STK-MED ONE Azithromycin Confirm 10/14/20 01:06 Zithromax 500 Mg/ 250 Ml Nacl Premix Administered 10/14/20 01:07 Dose 500 mg in 250 mls @ ud IV .STK-MED ONE Methylprednisolone Sodium Succinate 80 mg 10/14/20 01:00 10/14/20 06:06 Solu-Medrol 125 Mg IV 11/13/20 00:59 80 mg Q6H ABDOUL Administration Intake & Output (Last 24 hours) 10/11/20 10/12/20 10/13/20 10/14/20 11:59 11:59 11:59 11:59 Intake Total 380 Output Total 400 Balance -20 Weight 269 kg Microbiology Results (Last 24 hours) 10/14/20 01:10 Blood Blood Culture Gram Stain - Pending 10/14/20 01:10 Blood Blood Culture - Pending 10/13/20 21:10 Blood Blood Culture Gram Stain - Pending 10/13/20 21:10 Blood Blood Culture - Pending Laboratory Results (Last 24 hours) 10/14/20 10/14/20 10/14/20 09:05 06:50 03:36 WBC RBC Hgb Hct MCV MCH MCHC RDW Plt Count MPV Gran % Eos # (Auto) Absolute Lymphs (auto) Absolute Monos (auto) Lymphocytes % Monocytes % Eosinophils % Basophils % Absolute Granulocytes Basophils # PT INR APTT Sodium 136 L Potassium 4.1 Chloride 98 Carbon Dioxide 34 H Anion Gap 8.6 BUN 16 Creatinine 0.64 Estimated GFR > 60.0 Glucose 163 H Calcium 9.1 Total Bilirubin 0.50 AST 22 ALT 22 Alkaline Phosphatase 72 Troponin I < 0.012 < 0.012 NT-Pro-B Natriuret Pep Serum Total Protein 7.3 Albumin 4.1 Influenza Type A Ag Influenza Type B Ag RSV (PCR) SARS-CoV-2 (PCR) 10/14/20 10/14/20 10/14/20 03:36 03:36 00:22 WBC 10.8 H RBC 5.37 Hgb 10.5 L Hct 33.5 L MCV 62.4 L MCH 19.6 L MCHC 31.3 L RDW 18.1 H Plt Count 223 MPV 10.1 Gran % 83.9 H Eos # (Auto) 0.21 Absolute Lymphs (auto) 1.04 Absolute Monos (auto) 0.44 Lymphocytes % 9.7 L Monocytes % 4.1 Eosinophils % 2.0 Basophils % 0.3 Absolute Granulocytes 9.04 H Basophils # 0.03 PT INR APTT Sodium Potassium Chloride Carbon Dioxide Anion Gap BUN Creatinine Estimated GFR Glucose Calcium Total Bilirubin AST ALT Alkaline Phosphatase Troponin I < 0.012 < 0.012 NT-Pro-B Natriuret Pep Serum Total Protein Albumin Influenza Type A Ag Influenza Type B Ag RSV (PCR) SARS-CoV-2 (PCR) 10/13/20 10/13/20 10/13/20 23:43 21:10 21:10 WBC RBC Hgb Hct MCV MCH MCHC RDW Plt Count MPV Gran % Eos # (Auto) Absolute Lymphs (auto) Absolute Monos (auto) Lymphocytes % Monocytes % Eosinophils % Basophils % Absolute Granulocytes Basophils # PT 13.0 H INR 1.15 APTT 28.5 Sodium Potassium Chloride Carbon Dioxide Anion Gap BUN Creatinine Estimated GFR Glucose Calcium Total Bilirubin AST ALT Alkaline Phosphatase Troponin I < 0.012 NT-Pro-B Natriuret Pep Serum Total Protein Albumin Influenza Type A Ag NEGATIVE Influenza Type B Ag NEGATIVE RSV (PCR) NEGATIVE SARS-CoV-2 (PCR) NEGATIVE 10/13/20 10/13/20 21:10 21:10 WBC 12.7 H RBC 5.36 Hgb 10.5 L Hct 33.2 L MCV 61.9 L MCH 19.6 L MCHC 31.6 L RDW 18.5 H Plt Count 234 MPV 10.4 Gran % 74.5 H Eos # (Auto) 0.27 Absolute Lymphs (auto) 1.93 Absolute Monos (auto) 1.03 Lymphocytes % 15.2 L Monocytes % 8.1 Eosinophils % 2.1 Basophils % 0.1 Absolute Granulocytes 9.48 H Basophils # 0.01 PT INR APTT Sodium 135 L Potassium 3.8 Chloride 97 L Carbon Dioxide 30 Anion Gap 11.4 BUN 19 H Creatinine 0.63 Estimated GFR > 60.0 Glucose 140 H Calcium 9.1 Total Bilirubin 0.50 AST 30 ALT 23 Alkaline Phosphatase 60 Troponin I NT-Pro-B Natriuret Pep 78.4 Serum Total Protein 7.2 Albumin 4.2 Influenza Type A Ag Influenza Type B Ag RSV (PCR) SARS-CoV-2 (PCR) Orders (Last 24 hours) Category Date Time Status Bedrest with BRP/BSC ROUTINE Activity 10/14/20 00:50 Active [employer] STAT Care 10/13/20 21:11 Completed Code Status Order ROUTINE Care 10/14/20 00:50 Active EKG-ER Only STAT Care 10/13/20 21:10 Completed IV Care Q6H Care 10/14/20 00:50 Active Isolation, Initiate & Maintain Q12H Care 10/14/20 11:[address] in Observation ROUTINE Care 10/14/20 00:50 Active Vital Signs Q4H Care 10/14/20 00:50 Active Heart-Healthy Diet Diet 10/14/20 Breakfast Completed Heart-Healthy Diet Diet 10/14/20 Lunch Active CHEST 1 VIEW (PORTABLE) Stat Exams 10/13/20 21:11 Completed CHEST WITHOUT CONTRAST [CT] Stat Exams 10/13/20 22:26 Completed BLOOD CULTURE Stat Lab 10/14/20 01:10 Received CBC W DIFF AM.LAB Lab 10/14/20 03:36 Completed CBC W DIFF Stat Lab 10/13/20 21:10 Completed CMP AM.LAB Lab 10/14/20 03:36 Completed CMP Stat Lab 10/13/20 21:10 Completed NT PRO BNP Stat Lab 10/13/20 21:10 Completed PROTIME WITH INR Stat Lab 10/13/20 21:10 Completed PTT Stat Lab 10/13/20 21:10 Completed TROPONIN Q3H Lab 10/13/20 21:10 Completed TROPONIN Q3H Lab 10/14/20 00:22 Completed TROPONIN Q3H Lab 10/14/20 03:36 Completed TROPONIN Q3H Lab 10/14/20 06:50 Completed TROPONIN Q3H Lab 10/14/20 09:05 Completed Albuterol/Ipratropium 3ml Neb* [DUONEB 0.5-3 MG/3 ml Med 10/14/20 00:50 Active Neb] 3 ml IH Q4HPRN PRN Albuterol/Ipratropium 3ml Neb* [DUONEB 0.5-3 MG/3 ml Med 10/14/20 07:00 Active Neb] 3 ml IH QIDRT Aspirin EC 81 mg [Ecotrin 81 mg] Med 10/14/20 10:00 Active 81 mg PO DAILY Azithromycin 500 mg/250 ml [Zithromax 500 MG/ 250 ML Med 10/14/20 22:00 Active NaCl Premix] 500 mg in 250 ml IV Q24H22 Azithromycin 500 mg/250 ml [Zithromax 500 MG/ 250 ML Med 10/14/20 00:55 Discontinued NaCl Premix] 500 mg in 250 ml IV STAT Azithromycin 500 mg/250 ml [Zithromax 500 MG/ 250 ML Med 10/14/20 01:06 Discontinued NaCl Premix] 500 mg in 250 ml IV UD Ceftriaxone 1 GM/50 ML PREMIX* [ROCEPHIN 1 Gm-D5w 50 ml Med 10/14/20 22:00 Active Bag] 1 g in 50 ml IV Q24H22 Ceftriaxone 1 GM/50 ML PREMIX* [ROCEPHIN 1 Gm-D5w 50 ml Med 10/14/20 00:48 Discontinued Bag] 1 g in 50 ml IV STAT Ceftriaxone 1 GM/50 ML PREMIX* [ROCEPHIN 1 Gm-D5w 50 ml Med 10/14/20 00:55 Discontinued Bag] 1 g in 50 ml IV UD Clopidogrel Bisulfate 75 mg [PLAVIX 75 MG Tablet] Med 10/14/20 10:00 Active 75 mg PO DAILY Enoxaparin Sodium [Enoxaparin Sodium] Med 10/14/20 10:00 Active 40 mg SQ DAILY Ezetimibe 10 mg [Zetia 10 MG] Med 10/14/20 10:00 Active 10 mg PO DAILY Fluticasone/Salmeterol [Advair Hfa Common Med 10/14/20 07:00 Active canister*] 2 puff IH BIDRT Furosemide 40 mg [Lasix 40 MG] Med 10/14/20 10:00 Active 40 mg PO BID DIURETIC Insulin Glargine [Lantus Insulin] Med 10/14/20 08:00 Active 50 unit SQ AMINSULIN Insulin Lispro [Humalog] Med 10/14/20 12:00 Active 11 unit SQ LUNCH Insulin Lispro [Humalog] Med 10/14/20 17:00 Active 12 unit SQ DINNER Insulin Lispro [Humalog] Med 10/14/20 08:00 Active 7 unit SQ BREAKFAST Medication Intervention Med 10/14/20 08:45 Active 1 each MC .RN TO CHECK WITH PT Medication Intervention Med 10/14/20 08:45 Active 1 each MC .RN TO CHECK WITH PT Methylprednis Sod Succ 125 mg* [solu-MEDROL 125 MG] Med 10/14/20 01:00 Discontinued 80 mg IV Q6H Methylprednis Sod Succ 125 mg* [solu-MEDROL 125 MG] Med 10/14/20 12:00 Active 80 mg IV Q6HT Multivitamins,Therapeutic Tab* [Theragran Multivitamin* Med 10/14/20 10:00 Active ] 1 tab PO DAILY Pantoprazole 40 mg [Protonix 40 mg IV] Med 10/14/20 10:00 Active 40 mg IV Q24H10 Potassium Chloride 10 Meq Tab* [Klor Con 10 MEQ] Med 10/14/20 10:00 Active 10 meq PO BID Simvastatin 20Mg [Zocor 20Mg] Med 10/14/20 10:00 Active 40 mg PO [id number] Oxygen Nasal Cannula 2 lpm RT 10/14/20 00:50 Active Pulse Oximetry .spot check RT 10/14/20 01:54 Active Respiratory Therapy Assessment DAILY RT 10/14/20 01:54 Active Transfer Order Routine Transfer 10/14/20 Completed Patient Care Notes (Last 24 hours) 10/14/20 02:57 Nursing Note by Gaviota Trujillo Initialized on 10/14/20 02:57 - END OF NOTE Code(s): J18.9 - PNEUMONIA, UNSPECIFIED ORGANISM (2) COPD (chronic obstructive pulmonary disease) Current Visit: No Status: Chronic (3) Diabetes type 2, controlled Current Visit: No Status: Chronic Qualifiers: Code(s): E11.9 - TYPE 2 DIABETES MELLITUS WITHOUT COMPLICATIONS (4) Hyperlipidemia Current Visit: No Status: Chronic Code(s): E78.5 - HYPERLIPIDEMIA, UNSPECIFIED
[2020-10-14] MEDS ORDERED: INSULIN ASPART 11 UNIT SQ SCH (12:00)
[2020-10-14] MEDS ORDERED: VENTOLIN COMMON CANISTER IH SCH (15:00)
[2020-10-14] MEDS: VENTOLIN COMMON CANISTER IH SCH ×2 (15:38→21:22)
[2020-10-14 16:49] LABS: INFLUENZA A NEGATIVE (NEGATIVE)
[2020-10-14 16:50] LABS: INFLUENZA B NEGATIVE (NEGATIVE); RESPIRATORY SYNCTIAL VIRUS NEGATIVE (Negative)
[2020-10-14] MEDS ORDERED: INSULIN ASPART 12 UNIT SQ SCH (17:00)
[2020-10-14] MEDS ORDERED: DOXEPIN HCL 10 MG PO SCH (22:00)
[2020-10-14] MEDS: ROCEPHIN 1 Gm-D5w 50 ml Bag** 1 G/50 ML IVPB IV SCH (22:48)
[2020-10-14] MEDS: Zithromax 500 MG/ 250 ML NaCl Premix 500 MG/250 ML IVPB IV SCH (22:48)
[2020-10-15] MEDS: solu-MEDROL 125 MG IV SCH ×4 (01:05→22:21)
[2020-10-15 05:27] LABS: Absolute Neutrophil Ct (ANC) 12.09 (1.4-6.9); BASOPHIL % 0.2 % (0.0-0.4); Basophil (Absolute #) 0.03 (0-0.4); Eosinophil % 0.1 % (0.00-5.0); Eosinophil (Absolute #) 0.01 (0-0.5); Lymphocyte (Absolute #) 1.24 (1.0-4.6); Lymphocytes % 8.9 % (24.0-44.0); Mean Cell Volume 62.6 fl (78-100); Mean Corpuscular Hgb Concent. 30.3 g/dl (32-36); Mean Platelet Volume 10.3 fl (7.5-11.0); Monocyte (Absolute #) 0.58 (0.0-1.3); Monocytes % 4.2 % (0.0-12.0); Neutrophil % 86.6 % (36.0-66.0); Platelet Count 233 K/mm3 (150-450); Red Blood Count 5.27 M/mm3 (4.1-5.4); Red Cell Distribution Width 18.5 % (11.5-14.0)
[2020-10-15 05:53] LABS: ANION GAP 10.8 MEQ/L (5-15); BLOOD UREA NITROGEN 24 mg/dL (7-17); CHLORIDE 100 mmol/L (98-107); Calcium 9.2 mg/dL (8.4-10.2); Carbon Dioxide 31 mmol/L (22-30); Creatinine 1 0.59 mg/dL (0.52-1.04); EST GLOMERULAR FILTRATION RATE > 60.0 ML/MIN; Glucose 219 mg/dL (74-106); Potassium 4.9 mmol/L (3.5-5.1); SODIUM 138 mmol/L (137-145)
[2020-10-15] MEDS: Advair Hfa 115/21 Common canister IH SCH ×2 (06:53→18:53)
[2020-10-15] MEDS: VENTOLIN COMMON CANISTER IH SCH ×4 (06:54→18:57)
--- NOTE | 2020-10-15 07:31 | PCM.NOTE ---
Date and Time: 10/15/20727 Subjective Assessment: doing better - Review of Systems Constitutional: No Fever, No Chills Eyes: No Symptoms Ears, Nose, & Throat: No Symptoms Respiratory: Cough, Short Of Breath Cardiac: No Chest Pain, No Edema, No Syncope Abdominal/Gastrointestinal: No Abdominal Pain, No Nausea, No Vomiting, No Diarrhea Genitourinary Symptoms: No Dysuria Musculoskeletal: No Back Pain, No Neck Pain Skin: No Rash Neurological: No Dizziness, No Focal Weakness, No Sensory Changes Psychological: No Symptoms Endocrine: No Symptoms Hematologic/Lymphatic: No Symptoms Immunological/Allergic: No Symptoms Objective Exam General Appearance: no apparent distress, alert Neurologic Exam: alert, oriented x 3, cooperative, normal mood/affect, nml cerebellar function, sensation nml, No motor deficits Skin Exam: normal color, warm, dry Eye Exam: PERRL, EOMI, eyes nml inspection Ears, Nose, Throat Exam: normal ENT inspection, pharynx normal, moist mucous membranes Neck Exam: normal inspection, non-tender, supple, full range of motion Respiratory Exam: diminished breath sounds, rhonchi, wheezing, No respiratory distress Cardiovascular Exam: regular rate/rhythm, normal heart sounds Gastrointestinal/Abdomen Exam: soft, No tenderness, No mass Extremity Exam: normal inspection, normal range of motion Back Exam: normal inspection, normal range of motion, No CVA tenderness, No vertebral tenderness Pelvic Exam: deferred Rectal Exam: deferred OBJECTIVE DATA Vital Signs: Vital Signs - 24 hr Temp Pulse Resp BP Pulse Ox 10/15/20 06:56 64 16 94 L 10/15/20 04:00 97.6 F 79 18 141/65 94 L 10/15/20 00:00 76 16 93 L 10/14/20 21:22 73 18 89 L 10/14/20 20:00 98.1 F 77 18 140/60 91 L 10/14/20 16:00 71 17 93 L 10/14/20 15:38 75 16 90 L 10/14/20 12:40 80 18 89 L 10/14/20 12:02 89 16 89 L 10/14/20 07:35 98.4 F 76 16 117/56 92 L Oxygen-Last 24 hours Oxygen Flowrate (L/min)-RT 2 Oxygen Flowrate (L/min)-RT 2 Oxygen Flowrate (L/min)-RT 2 Pain Assessment - Last Documented Pain Intensity 0 Intake and Output: Intake & Output 10/12/20 10/13/20 10/14/20 10/15/20 11:59 11:59 11:59 11:59 Intake Total 380 640 Output Total 400 Balance -20 640 Weight 269 kg Lab Results: Lab Results-Last 24 Hours 10/14/20 10/14/20 10/14/20 Range/Units 06:50 09:05 15:10 WBC (4.0-10.5) K/mm3 RBC (4.1-5.4) M/mm3 Hgb (12.0-16.0) gm/dl Hct (35-47) % MCV (78-100) fl MCH (26-32) pg MCHC (32-36) g/dl RDW (11.5-14.0) % Plt Count (150-450) K/mm3 MPV (7.5-11.0) fl Gran % (36.0-66.0) % Eos # (Auto) (0-0.5) Absolute Lymphs (auto) (1.0-4.6) Absolute Monos (auto) (0.0-1.3) Lymphocytes % (24.0-44.0) % Monocytes % (0.0-12.0) % Eosinophils % (0.00-5.0) % Basophils % (0.0-0.4) % Absolute Granulocytes (1.4-6.9) Basophils # (0-0.4) D-Dimer 878 H* (215-500) ng/mL Sodium (137-145) mmol/L Potassium (3.5-5.1) mmol/L Chloride (98-107) mmol/L Carbon Dioxide (22-30) mmol/L Anion Gap (5-15) MEQ/L BUN (7-17) mg/dL Creatinine (0.52-1.04) mg/dL Estimated GFR ML/MIN Glucose (74-106) mg/dL Calcium (8.4-10.2) mg/dL Troponin I < 0.012 < 0.012 (0.000-0.034) ng/mL Influenza Type A Ag (NEGATIVE) Influenza Type B Ag (NEGATIVE) RSV (PCR) (Negative) SARS-CoV-2 (PCR) (NEGATIVE) 10/14/20 10/15/2021 Range/Units 15:16 05:25 05:25 WBC 14.0 H (4.0-10.5) K/mm3 RBC 5.27 (4.1-5.4) M/mm3 Hgb 10.0 L (12.0-16.0) gm/dl Hct 33.0 L (35-47) % MCV 62.6 L (78-100) fl MCH 19.0 L (26-32) pg MCHC 30.3 L (32-36) g/dl RDW 18.5 H (11.5-14.0) % Plt Count 233 (150-450) K/mm3 MPV 10.3 (7.5-11.0) fl Gran % 86.6 H (36.0-66.0) % Eos # (Auto) 0.01 (0-0.5) Absolute Lymphs (auto) 1.24 (1.0-4.6) Absolute Monos (auto) 0.58 (0.0-1.3) Lymphocytes % 8.9 L (24.0-44.0) % Monocytes % 4.2 (0.0-12.0) % Eosinophils % 0.1 (0.00-5.0) % Basophils % 0.2 (0.0-0.4) % Absolute Granulocytes 12.09 H (1.4-6.9) Basophils # 0.03 (0-0.4) D-Dimer (215-500) ng/mL Sodium 138 (137-145) mmol/L Potassium 4.9 (3.5-5.1) mmol/L Chloride 100 (98-107) mmol/L Carbon Dioxide 31 H (22-30) mmol/L Anion Gap 10.8 (5-15) MEQ/L BUN 24 H (7-17) mg/dL Creatinine 0.59 (0.52-1.04) mg/dL Estimated GFR > 60.0 ML/MIN Glucose 219 H (74-106) mg/dL Calcium 9.2 (8.4-10.2) mg/dL Troponin I (0.000-0.034) ng/mL Influenza Type A Ag NEGATIVE (NEGATIVE) Influenza Type B Ag NEGATIVE (NEGATIVE) RSV (PCR) NEGATIVE (Negative) SARS-CoV-2 (PCR) NEGATIVE (NEGATIVE) 10/15/20 Range/Units 05:25 WBC (4.0-10.5) K/mm3 RBC (4.1-5.4) M/mm3 Hgb (12.0-16.0) gm/dl Hct (35-47) % MCV (78-100) fl MCH (26-32) pg MCHC (32-36) g/dl RDW (11.5-14.0) % Plt Count (150-450) K/mm3 MPV (7.5-11.0) fl Gran % (36.0-66.0) % Eos # (Auto) (0-0.5) Absolute Lymphs (auto) (1.0-4.6) Absolute Monos (auto) (0.0-1.3) Lymphocytes % (24.0-44.0) % Monocytes % (0.0-12.0) % Eosinophils % (0.00-5.0) % Basophils % (0.0-0.4) % Absolute Granulocytes (1.4-6.9) Basophils # (0-0.4) D-Dimer 434 (215-500) ng/mL Sodium (137-145) mmol/L Potassium (3.5-5.1) mmol/L Chloride (98-107) mmol/L Carbon Dioxide (22-30) mmol/L Anion Gap (5-15) MEQ/L BUN (7-17) mg/dL Creatinine (0.52-1.04) mg/dL Estimated GFR ML/MIN Glucose (74-106) mg/dL Calcium (8.4-10.2) mg/dL Troponin I (0.000-0.034) ng/mL Influenza Type A Ag (NEGATIVE) Influenza Type B Ag (NEGATIVE) RSV (PCR) (Negative) SARS-CoV-2 (PCR) (NEGATIVE) Radiology Exams: Radiology Procedures Category Date Time Status CHEST 1 VIEW (PORTABLE) Stat Exams 10/13/20 21:11 Completed CHEST WITHOUT CONTRAST [CT] Stat Exams 10/13/20 22:26 Completed Multi-Disciplinary Progress Notes: Multi-Disciplinary Progress Notes 10/14/20 12:10 (created 10/14/20 12:41) Case Management Note by Juana Phelps DR ROUNDED AND EVALUATED, DISCUSSED WITH PT AND THAT PT HAD A BAD PNEUMONIA, AND HE IS SUSPICIOUS THAT PT IS POSITIVE FOR COVID-19. DISCUSSED THAT THE NEGATIVE TEST SHE HAD YESTERDAY COULD HAVE BEEN A FALSE NEGATIVE. DISCUSSED THAT PT WILL LIKELY BE HERE A FEW MORE DAYS FOR TREATMENT. PT/ BOTH VERBALIZED UNDERSTANDING AND ABLE TO REPEAT INFORMATION BACK. BOTH AGREE WITH CURRENT PLAN. DR. WALKER REPORTS TO CHECK WITH INCIDENT COMMAND FOR RETESTING OF COVID-19, OR WHAT SEQUENCE THEY SHOULD NOW FOLLOW. REPORTED ABOVE TO BLOWER OPERATOR. Initialized on 10/14/20 12:41 - END OF NOTE Assessment/Plan (1) Pneumonia Current Visit: Yes Status: Acute Qualifiers: Pneumonia type: due to Pneumococcus Laterality: bilateral Lung location: lower lobe of lung Qualified Code(s): J13 - Pneumonia due to Streptococcus pneumoniae Assessment & Plan: Chief Complaint Diagnosis COVID-19 PNEUMONIA Allergies Allergy/AdvReac Type Severity Reaction Status Date / Time ibuprofen Allergy facial Verified 10/13/20 21:39 swelling Vital Signs (Last 24 hours) Temp Pulse Resp BP Pulse Ox 10/15/20 06:56 64 16 94 L 10/15/20 04:00 97.6 F 79 18 141/65 94 L 10/15/20 00:00 76 16 93 L 10/14/20 21:22 73 18 89 L 10/14/20 20:00 98.1 F 77 18 140/60 91 L 10/14/20 16:00 71 17 93 L 10/14/20 15:38 75 16 90 L 10/14/20 12:40 80 18 89 L 10/14/20 12:02 89 16 89 L 10/14/20 07:35 98.4 F 76 16 117/56 92 L Home Medications Medication Instructions Recorded Confirmed Last Taken Type Doxepin HCl 10 mg PO HS 10/13/20 10/13/20 10/12/20 History Current Medications Generic Name Dose Route Start Last Admin Trade Name Freq PRN Reason Stop Dose Admin Albuterol Sulfate 4 puff 10/14/20 15:00 10/15/20 06:54 Ventolin Common Canister 11/13/20 14:59 4 puff QIDRT ABDOUL Administration Albuterol/Ipratropium 3 ml 10/14/20 00:50 10/14/20 01:50 Duoneb 0.5-3 Mg/3 Ml Neb IH 11/13/20 00:49 3 ml Q4HPRN PRN Administration SHORTNESS OF BREATH/WHEEZING Aspirin 81 mg 10/14/20 10:00 10/14/20 09:33 Ecotrin 81 Mg PO 11/13/20 09:59 81 mg DAILY ABDOUL Administration Clopidogrel Bisulfate 75 mg 10/14/20 10:00 10/14/20 09:33 Plavix 75 Mg Tablet PO 11/13/20 09:59 75 mg DAILY ABDOLU Administration Ezetimibe 10 mg 10/14/20 10:00 10/14/20 09:34 Zetia 10 Mg PO 11/13/20 09:59 10 mg DAILY ABDOUL Administration Enoxaparin Sodium 40 mg 10/14/20 10:00 10/14/20 09:34 Enoxaparin Sodium SQ 11/13/20 09:59 40 mg DAILY ABDOUL Administration Furosemide 40 mg 10/14/20 10:00 10/14/20 16:20 Lasix 40 Mg PO 11/13/20 09:59 40 mg BID DIURETIC ABDOUL Administration Ceftriaxone Sodium/Dextrose 1 g in 50 mls @ 100 mls/hr 10/14/20 22:00 10/14/20 22:48 Rocephin 1 Gm-D5w 50 Ml Bag IV 10/17/20 21:59 100 mls/hr Q24H22 ABDOUL Administration Azithromycin 500 mg in 250 mls @ 250 mls/hr 10/14/20 22:00 10/14/20 22:48 Zithromax 500 Mg/ 250 Ml Nacl Premix IV 11/13/20 21:59 250 mls/hr Q24H22 ABDOUL Administration Insulin Glargine 50 unit 10/14/20 08:00 10/14/20 08:38 Lantus Insulin SQ 11/13/20 07:59 50 unit AMINSULIN ABDOUL Administration Insulin Human Lispro 11 unit 10/14/20 12:00 10/14/20 11:25 Humalog SQ 11/13/20 11:59 26 unit LUNCH ABDOUL Administration Insulin Human Lispro 12 unit 10/14/20 17:00 10/14/20 16:20 Humalog SQ 11/13/20 16:59 15 unit DINNER ABDOUL Administration Insulin Human Lispro 7 unit 10/14/20 08:00 10/14/20 08:39 Humalog SQ 11/13/20 07:59 22 unit BREAKFAST ABDOUL Administration Methylprednisolone Sodium Succinate 80 mg 10/14/20 12:00 10/15/20 06:37 Solu-Medrol 125 Mg IV 11/13/20 11:59 80 mg Q6HT ABDOUL Administration Miscellaneous Information 1 each 10/14/20 08:45 Medication Intervention 11/13/20 08:44 .RN TO CHECK WITH PT [facility] Miscellaneous Information 1 each 10/14/20 08:45 Medication Intervention 11/13/20 08:44 .RN TO CHECK WITH PT [facility] Multivitamins Therapeutic 1 tab 10/14/20 10:00 10/14/20 09:33 Theragran Multivitamin PO 11/13/20 09:59 1 tab DAILY ABDOUL Administration Pantoprazole Sodium 40 mg 10/14/20 10:00 10/14/20 09:33 Protonix 40 Mg Iv IV 11/13/20 09:59 40 mg Q24H10 ABDOUL Administration Potassium Chloride 10 meq 10/14/20 10:00 10/14/20 22:48 Klor Con 10 Meq PO 11/13/20 09:59 10 meq BID ABDOUL Administration Fluticasone/Salmeterol 2 puff 10/14/20 07:00 10/15/20 06:53 Advair Hfa 115/ Common Canister* 11/13/20 06:59 2 puff BIDRT ABDOUL Administration Simvastatin 40 mg 10/14/20 10:00 10/14/20 09:33 Zocor 20mg PO 11/13/20 09:59 40 mg [id number] ABDOUL Administration Discontinued Medications Generic Name Dose Route Start Last Admin Trade Name Freq PRN Reason Stop Dose Admin Albuterol Sulfate 4 puff 10/14/20 15:00 Ventolin Common Canister 11/13/20 14:59 QIDRT ABDOUL Albuterol/Ipratropium 3 ml 10/14/20 07:00 10/14/20 15:29 Duoneb 0.5-3 Mg/3 Ml Neb 11/13/20 06:59 Not Given QIDRT [facility] Ceftriaxone Sodium/Dextrose 1 g in 50 mls @ 100 mls/hr 10/14/20 00:48 10/14/20 00:58 Rocephin 1 Gm-D5w 50 Ml Bag IV 10/14/20 01:17 100 mls/hr STAT STA 100 mls/hr Administration Azithromycin 500 mg in 250 mls @ 250 mls/hr 10/14/20 00:55 10/14/20 01:08 Zithromax 500 Mg/ 250 Ml Nacl Premix IV 10/14/20 01:54 250 mls/hr STAT STA 250 mls/hr Administration Ceftriaxone Sodium/Dextrose Confirm 10/14/20 00:55 Rocephin 1 Gm-D5w 50 Ml Bag Administered 10/14/20 00:56 Dose 1 g in 50 mls @ ud IV .STK-MED ONE Azithromycin Confirm 10/14/20 01:06 Zithromax 500 Mg/ 250 Ml Nacl Premix Administered 10/14/20 01:07 Dose 500 mg in 250 mls @ ud IV .STK-MED ONE Methylprednisolone Sodium Succinate 80 mg 10/14/20 01:00 10/14/20 06:06 Solu-Medrol 125 Mg IV 11/13/20 00:59 80 mg Q6H ABDOUL Administration Intake & Output (Last 24 hours) 10/12/20 10/13/20 10/14/20 10/15/20 11:59 11:59 11:59 11:59 Intake Total 380 640 Output Total 400 Balance -20 640 Weight 269 kg Laboratory Results (Last 24 hours) 10/15/20 10/15/20 10/15/20 05:25 05:25 05:25 WBC 14.0 H RBC 5.27 Hgb 10.0 L Hct 33.0 L MCV 62.6 L MCH 19.0 L MCHC 30.3 L RDW 18.5 H Plt Count 233 MPV 10.3 Gran % 86.6 H Eos # (Auto) 0.01 Absolute Lymphs (auto) 1.24 Absolute Monos (auto) 0.58 Lymphocytes % 8.9 L Monocytes % 4.2 Eosinophils % 0.1 Basophils % 0.2 Absolute Granulocytes 12.09 H Basophils # 0.03 D-Dimer 434 Sodium 138 Potassium 4.9 Chloride 100 Carbon Dioxide 31 H Anion Gap 10.8 BUN 24 H Creatinine 0.59 Estimated GFR > 60.0 Glucose 219 H Calcium 9.2 Troponin I Influenza Type A Ag Influenza Type B Ag RSV (PCR) SARS-CoV-2 (PCR) 10/14/20 10/14/20 10/14/20 15:16 15:10 09:05 WBC RBC Hgb Hct MCV MCH MCHC RDW Plt Count MPV Gran % Eos # (Auto) Absolute Lymphs (auto) Absolute Monos (auto) Lymphocytes % Monocytes % Eosinophils % Basophils % Absolute Granulocytes Basophils # D-Dimer 878 H* Sodium Potassium Chloride Carbon Dioxide Anion Gap BUN Creatinine Estimated GFR Glucose Calcium Troponin I < 0.012 Influenza Type A Ag NEGATIVE Influenza Type B Ag NEGATIVE RSV (PCR) NEGATIVE SARS-CoV-2 (PCR) NEGATIVE 10/14/20 06:50 WBC RBC Hgb Hct MCV MCH MCHC RDW Plt Count MPV Gran % Eos # (Auto) Absolute Lymphs (auto) Absolute Monos (auto) Lymphocytes % Monocytes % Eosinophils % Basophils % Absolute Granulocytes Basophils # D-Dimer Sodium Potassium Chloride Carbon Dioxide Anion Gap BUN Creatinine Estimated GFR Glucose Calcium Troponin I < 0.012 Influenza Type A Ag Influenza Type B Ag RSV (PCR) SARS-CoV-2 (PCR) Orders (Last 24 hours) Category Date Time Status Heart-Healthy Diet Diet 10/14/20 Breakfast Completed Heart-Healthy Diet Diet 10/14/20 Lunch Active BMP AM.LAB Lab 10/15/20 05:25 Completed CBC W DIFF AM.LAB Lab 10/15/20 05:25 Completed D-DIMER QUANTITATIVE AM.LAB Lab 10/15/20 05:25 Completed D-DIMER QUANTITATIVE Routine Lab 10/14/20 15:10 Completed TROPONIN Q3H Lab 10/14/20 06:50 Completed TROPONIN Q3H Lab 10/14/20 09:05 Completed Albuterol Common Canister [Ventolin Common Canister* Med 10/14/20 15:00 Active ] 4 puff IH QIDRT Albuterol Common Canister [Ventolin Common Canister* Med 10/14/20 15:00 Discontinued ] 4 puff IH QIDRT Albuterol/Ipratropium 3ml Neb* [DUONEB 0.5-3 MG/3 ml Med 10/14/20 07:00 Discon tinued Neb] 3 ml IH QIDRT Aspirin EC 81 mg [Ecotrin 81 mg] Med 10/14/20 10:00 Active 81 mg PO DAILY Azithromycin 500 mg/250 ml [Zithromax 500 MG/ 250 ML Med 10/14/20 22:00 Active NaCl Premix] 500 mg in 250 ml IV Q24H22 Ceftriaxone 1 GM/50 ML PREMIX* [ROCEPHIN 1 Gm-D5w 50 ml Med 10/14/20 22:00 Active Bag] 1 g in 50 ml IV Q24H22 Clopidogrel Bisulfate 75 mg [PLAVIX 75 MG Tablet] Med 10/14/20 10:00 Active 75 mg PO DAILY Enoxaparin Sodium [Enoxaparin Sodium] Med 10/14/20 10:00 Active 40 mg SQ DAILY Ezetimibe 10 mg [Zetia 10 MG] Med 10/14/20 10:00 Active 10 mg PO DAILY Fluticasone/Salmeterol [Advair Hfa Common Med 10/14/20 07:00 Active canister*] 2 puff IH BIDRT Furosemide 40 mg [Lasix 40 MG] Med 10/14/20 10:00 Active 40 mg PO BID DIURETIC Insulin Glargine [Lantus Insulin] Med 10/14/20 08:00 Active 50 unit SQ AMINSULIN Insulin Lispro [Humalog] Med 10/14/20 12:00 Active 11 unit SQ LUNCH Insulin Lispro [Humalog] Med 10/14/20 17:00 Active 12 unit SQ DINNER Insulin Lispro [Humalog] Med 10/14/20 08:00 Active 7 unit SQ BREAKFAST Medication Intervention Med 10/14/20 08:45 Active 1 each MC .RN TO CHECK WITH PT Medication Intervention Med 10/14/20 08:45 Active 1 each MC .RN TO CHECK WITH PT Methylprednis Sod Succ 125 mg* [solu-MEDROL 125 MG] Med 10/14/20 12:00 Active 80 mg IV Q6HT Multivitamins,Therapeutic Tab* [Theragran Multivitamin* Med 10/14/20 10:00 Active ] 1 tab PO DAILY Pantoprazole 40 mg [Protonix 40 mg IV] Med 10/14/20 10:00 Active 40 mg IV Q24H10 Potassium Chloride 10 Meq Tab* [Klor Con 10 MEQ] Med 10/14/20 10:00 Active 10 meq PO BID Simvastatin 20Mg [Zocor 20Mg] Med 10/14/20 10:00 Active 40 mg PO [id number] Respiratory MDI QID RT 10/14/20 15:40 Completed Patient Care Notes (Last 24 hours) 10/14/20 18:54 Nursing Note by Flor Garrido Patient ambulated with standby assistance approximately 250 feet. Patient on room air during ambulation. Patient was able to converse while ambulating but this nurse did not some shortness of breath. Oxygen saturations assessed upon returning to room and noted to be 78%. O2 at 2L reapplied to patient and saturation recovered to 94% within 2 minutes. Initialized on 10/14/20 18:54 - END OF NOTE 10/14/20 17:55 Nursing Note by Kimmy Grant dr. updated of second negative covid test by phone and orders given to dc isolation and transfer pt back to [facility]. Initialized on 10/14/20 17:55 - END OF NOTE 10/14/20 16:56 Nursing Note by Kimmy Grant dr. updated on lab results. feels like pt is negative for covid. given dr. walker's cell phone number for dr to dr trejo. Initialized on 10/14/20 16:56 - END OF NOTE 10/14/20 14:37 Nursing Note by Kimmy Grant pt has an implanted blood glucose monitoring system and reports blood glucose levels. Initialized on 10/14/20 14:37 - END OF NOTE 10/14/20 14:33 Nursing Note by Flor Garrido [employer] Toby Zhu RN and this nurse discussed moving patient to COVID unit with pt and her . Patient and were very hesitant about patient moving. Let them know all precautions are taken to ensure staff as well as patient safety.Verbal report given to Filemon Grant RN. Patient ambulated per self from room 104 to 109 without difficulty. Initialized on 10/14/20 14:33 - END OF NOTE 10/14/20 13:54 Nursing Note by Niki Zhu 1325-Per Dr Walker and Incident Command pt is deemed clinically positive and to be moved to Covid Unit. 1347-Spoke with Dr Crisostomo who accepted patient to covid unit and states he will be in this afternoon. Initialized on 10/14/20 13:54 - END OF NOTE 10/14/20 12:10 (created 10/14/20 12:41) Case Management Note by Juana Phelps DR ROUNDED AND EVALUATED, DISCUSSED WITH PT AND THAT PT HAD A BAD PNEUMONIA, AND HE IS SUSPICIOUS THAT PT IS POSITIVE FOR COVID-19. DISCUSSED THAT THE NEGATIVE TEST SHE HAD YESTERDAY COULD HAVE BEEN A FALSE NEGATIVE. DISCUSSED THAT PT WILL LIKELY BE HERE A FEW MORE DAYS FOR TREATMENT. PT/ BOTH VERBALIZED UNDERSTANDING AND ABLE TO REPEAT INFORMATION BACK. BOTH AGREE WITH CURRENT PLAN. DR. WALKER REPORTS TO CHECK WITH INCIDENT COMMAND FOR RETESTING OF COVID-19, OR WHAT SEQUENCE THEY SHOULD NOW FOLLOW. Patient repeat COVID test is again negative. So will Keep patient on regular side Code(s): J18.9 - PNEUMONIA, UNSPECIFIED ORGANISM (2) COPD (chronic obstructive pulmonary disease) Current Visit: No Status: Chronic (3) Diabetes type 2, controlled Current Visit: No Status: Chronic Qualifiers: Code(s): E11.9 - TYPE 2 DIABETES MELLITUS WITHOUT COMPLICATIONS (4) Hyperlipidemia Current Visit: No Status: Chronic Code(s): E78.5 - HYPERLIPIDEMIA, UNSPECIFIED
[2020-10-15] MEDS: HUMALOG SQ SCH ×3 (07:46→16:36)
[2020-10-15] MEDS: Lantus Insulin SQ SCH (07:47)
[2020-10-15] MEDS ORDERED: INSULIN ASPART 7 UNIT SQ SCH (08:00)
[2020-10-15] MEDS: ENOXAPARIN SODIUM SQ SCH (10:34)
[2020-10-15] MEDS: PROTONIX 40 MG IV IV SCH (10:37)
[2020-10-15] MEDS: ECOTRIN 81 MG PO SCH (10:40)
[2020-10-15] MEDS: Zetia 10 MG PO SCH (10:41)
[2020-10-15] MEDS: PLAVIX 75 MG Tablet PO SCH (10:42)
[2020-10-15] MEDS: Lasix 40 MG PO SCH ×2 (10:42→16:35)
[2020-10-15] MEDS: THERAGRAN MULTIVITAMIN PO SCH (10:42)
[2020-10-15] MEDS: Klor Con 10 MEQ PO SCH ×2 (10:42→22:21)
[2020-10-15 12:20] LABS: Slide Review 1 YES
[2020-10-15] MEDS: ROCEPHIN 1 Gm-D5w 50 ml Bag** 1 G/50 ML IVPB IV SCH (22:22)
[2020-10-15] MEDS: Zithromax 500 MG/ 250 ML NaCl Premix 500 MG/250 ML IVPB IV SCH (22:22)
[2020-10-16 05:19] LABS: Hemoglobin 10.3 gm/dl (12.0-16.0); Mean Cell Volume 62.4 fl (78-100); Mean Corpuscular Hemoglobin 19.5 pg (26-32); Mean Corpuscular Hgb Concent. 31.2 g/dl (32-36); Mean Platelet Volume 10.5 fl (7.5-11.0); Platelet Count 269 K/mm3 (150-450); Red Blood Count 5.29 M/mm3 (4.1-5.4); Red Cell Distribution Width 18.2 % (11.5-14.0); White Blood Count 13.4 K/mm3 (4.0-10.5)
[2020-10-16] MEDS: solu-MEDROL 125 MG IV SCH (05:19)
[2020-10-16 05:44] LABS: ALBUMIN 3.8 g/dL (3.5-5.0); ALKALINE PHOSPHATASE 60 U/L (38-126); ANION GAP 9.6 MEQ/L (5-15); BLOOD UREA NITROGEN 26 mg/dL (7-17); CHLORIDE 99 mmol/L (98-107); Calcium 9.1 mg/dL (8.4-10.2); Carbon Dioxide 36 mmol/L (22-30); Creatinine 1 0.65 mg/dL (0.52-1.04); EST GLOMERULAR FILTRATION RATE > 60.0 ML/MIN; Glucose 178 mg/dL (74-106); Potassium 4.9 mmol/L (3.5-5.1); SGOT/AST 25 U/L (14-36); SGPT/ALT 28 U/L (0-35); SODIUM 139 mmol/L (137-145); Total Protein 6.6 g/dL (6.3-8.2)
[2020-10-16] MEDS: VENTOLIN COMMON CANISTER IH SCH (06:40)
[2020-10-16] MEDS: Advair Hfa 115/21 Common canister IH SCH (06:40)
[2020-10-16 07:08] LABS: Lymphocytes % 9.5 % (24.0-44.0); Neutrophil % 87.1 % (36.0-66.0)
[2020-10-16 07:09] LABS: Absolute Neutrophil Ct (ANC) 11.68 (1.4-6.9); BASOPHIL % 0.4 % (0.0-0.4); Platelet Estimate NORMAL (NORMAL)
[2020-10-16 07:10] LABS: ANISOCYTOSIS 2+; Basophilic Stippling 1+; Hypochromia 1+; Ovalocytes 1+; Poikilocytosis 2+; Polychromasia 2+
[2020-10-16 07:13] VITALS: BP 126/62; PULSE 54; O2SAT 96
[2020-10-16] MEDS: HUMALOG SQ SCH (08:27)
[2020-10-16] MEDS: Lantus Insulin SQ SCH (08:28)
--- NOTE | 2020-10-16 08:45 | XRAY ---
Indication: Follow-up pneumonia. Comparison: October 13, 2020. PA/lateral chest demonstrates minimal clearing of previous bilateral airspace opacities which still persist. Heart not enlarged. No new cardiopulmonary abnormalities.
[2020-10-16] MEDS: ZOCOR 20MG PO SCH (09:19)
[2020-10-16] MEDS: PLAVIX 75 MG Tablet PO SCH (09:19)
[2020-10-16] MEDS: Zetia 10 MG PO SCH (09:19)
[2020-10-16] MEDS: THERAGRAN MULTIVITAMIN PO SCH (09:19)
[2020-10-16] MEDS: Klor Con 10 MEQ PO SCH (09:19)
[2020-10-16] MEDS: ECOTRIN 81 MG PO SCH (09:19)
[2020-10-16] MEDS: Lasix 40 MG PO SCH (09:19)
[2020-10-16] MEDS: PROTONIX 40 MG IV IV SCH (09:19)
[2020-10-16] MEDS: ENOXAPARIN SODIUM SQ SCH (09:20)
--- NOTE | 2020-10-18 11:09 | PCM.DS ---
Discharge Summary Date of Admission: 10/14/20 01:43 Admitting Physician: GLENROY CHOI Primary Care Provider: GLENROY CHOI Allergies Allergies ibuprofen Allergy (Verified 10/13/20 21:39) facial swelling Hospital Summary - Hospital Course Hospital Course: Chief Complaint Diagnosis COVID-19 PNEUMONIA Allergies Allergy/AdvReac Type Severity Reaction Status Date / Time ibuprofen Allergy facial Verified 10/13/20 21:39 swelling Home Medications Medication Instructions Recorded Confirmed Last Taken Type Doxepin HCl 10 mg PO HS 10/13/20 10/13/20 10/12/20 History Azithromycin [Zithromax] 500 mg PO DAILY 3 Days #3 tablet 10/16/20 Unknown Rx Cephalexin Mh 500 mg [Keflex 500 500 mg PO QID 7 Days #28 capsule 10/16/20 Unknown Rx mg] Methylprednisolone Packet 4 mg PO UD #30 packet 10/16/20 Unknown Rx [Medrol Dosepack] Current Medications Discontinued Medications Generic Name Dose Route Start Last Admin Trade Name Freq PRN Reason Stop Dose Admin Albuterol Sulfate 4 puff 10/14/20 15:00 Ventolin Common Canister IH 11/13/20 14:59 QIDRT ABDOUL Albuterol Sulfate 4 puff 10/14/20 15:00 10/16/20 06:40 Ventolin Common Canister IH 11/13/20 14:59 4 puff QIDRT ABDOUL Administration Albuterol/Ipratropium 3 ml 10/14/20 00:50 10/14/20 01:50 Duoneb 0.5-3 Mg/3 Ml Neb IH 11/13/20 00:49 3 ml Q4HPRN PRN Administration SHORTNESS OF BREATH/WHEEZING Albuterol/Ipratropium 3 ml 10/14/20 07:00 10/14/20 15:29 Duoneb 0.5-3 Mg/3 Ml Neb IH 11/13/20 06:59 Not Given QIDRT ABDOUL Aspirin 81 mg 10/14/20 10:00 10/16/20 09:19 Ecotrin 81 Mg PO 11/13/20 09:59 81 mg DAILY ABDOUL Administration Clopidogrel Bisulfate 75 mg 10/14/20 10:00 10/16/20 09:19 Plavix 75 Mg Tablet PO 11/13/20 09:59 75 mg DAILY ABDOUL Administration Ezetimibe 10 mg 10/14/20 10:00 10/16/20 09:19 Zetia 10 Mg PO 11/13/20 09:59 10 mg DAILY ABDOUL Administration Enoxaparin Sodium 40 mg 10/14/20 10:00 10/16/20 09:20 Enoxaparin Sodium SQ 11/13/20 09:59 40 mg DAILY ABDOUL Administration Furosemide 40 mg 10/14/20 10:00 10/16/20 09:19 Lasix 40 Mg PO 11/13/20 09:59 40 mg BID DIURETIC ABDOUL Administration Ceftriaxone Sodium/Dextrose 1 g in 50 mls @ 100 mls/hr 10/14/20 00:48 10/14/20 00:58 Rocephin 1 Gm-D5w 50 Ml Bag IV 10/14/20 01:17 100 mls/hr STAT STA 100 mls/hr Administration Ceftriaxone Sodium/Dextrose 1 g in 50 mls @ 100 mls/hr 10/14/20 22:00 10/15/20 22:22 Rocephin 1 Gm-D5w 50 Ml Bag IV 10/17/20 21:59 100 mls/hr Q24H22 ABDOUL Administration Azithromycin 500 mg in 250 mls @ 250 mls/hr 10/14/20 22:00 10/15/20 22:22 Zithromax 500 Mg/ 250 Ml Nacl Premix IV 11/13/20 21:59 250 mls/hr Q24H22 ABDOUL Administration Azithromycin 500 mg in 250 mls @ 250 mls/hr 10/14/20 00:55 10/14/20 01:08 Zithromax 500 Mg/ 250 Ml Nacl Premix IV 10/14/20 01:54 250 mls/hr STAT STA 250 mls/hr Administration Ceftriaxone Sodium/Dextrose Confirm 10/14/20 00:55 Rocephin 1 Gm-D5w 50 Ml Bag Administered 10/14/20 00:56 Dose 1 g in 50 mls @ ud IV .STK-MED ONE Azithromycin Confirm 10/14/20 01:06 Zithromax 500 Mg/ 250 Ml Nacl Premix Administered 10/14/20 01:07 Dose 500 mg in 250 mls @ ud IV .STK-MED ONE Insulin Glargine 50 unit 10/14/20 08:00 10/16/20 08:28 Lantus Insulin SQ 11/13/20 07:59 50 unit AMINSULIN ABDOUL Administration Insulin Human Lispro 11 unit 10/14/20 12:00 10/15/20 12:02 Humalog SQ 11/13/20 11:59 11 unit LUNCH ABDOUL Administration Insulin Human Lispro 12 unit 10/14/20 17:00 10/15/20 16:36 Humalog SQ 11/13/20 16:59 12 unit DINNER ABDOUL Administration Insulin Human Lispro 7 unit 10/14/20 08:00 10/16/20 08:27 Humalog SQ 11/13/20 07:59 22 unit BREAKFAST ABDOUL Administration Methylprednisolone Sodium Succinate 80 mg 10/14/20 01:00 10/14/20 06:06 Solu-Medrol 125 Mg IV 11/13/20 00:59 80 mg Q6H ABDOUL Administration Methylprednisolone Sodium Succinate 80 mg 10/14/20 12:00 10/15/20 06:37 Solu-Medrol 125 Mg IV 11/13/20 11:59 80 mg Q6HT ABDOUL Administration Methylprednisolone Sodium Succinate 80 mg 10/15/20 14:00 10/16/20 05:19 Solu-Medrol 125 Mg IV 11/14/20 13:59 80 mg Q8HT ABDOUL Administration Miscellaneous Information 1 each 10/14/20 08:45 Medication Intervention 11/13/20 08:44 .RN TO CHECK WITH PT [facility] Miscellaneous Information 1 each 10/14/20 08:45 Medication Intervention 11/13/20 08:44 .RN TO CHECK WITH PT [facility] Multivitamins Therapeutic 1 tab 10/14/20 10:00 10/16/20 09:19 Theragran Multivitamin PO 11/13/20 09:59 1 tab DAILY ABDOUL Administration Pantoprazole Sodium 40 mg 10/14/20 10:00 10/16/20 09:19 Protonix 40 Mg Iv IV 11/13/20 09:59 40 mg Q24H10 ABDOUL Administration Potassium Chloride 10 meq 10/14/20 10:00 10/16/20 09:19 Klor Con 10 Meq PO 11/13/20 09:59 10 meq BID ABDOUL Administration Fluticasone/Salmeterol 2 puff 10/14/20 07:00 10/16/20 06:40 Advair Hfa 115/21 Common Canister* IH 11/13/20 06:59 2 puff BIDRT ABDOUL Administration Simvastatin 40 mg 10/14/20 10:00 10/16/20 09:19 Zocor 20mg PO 11/13/20 09:59 40 mg [id number]@1000 ABDOUL Administration Intake & Output (Last 24 hours) 10/15/20 10/16/20 10/17/20 10/18/20 11:59 11:59 11:59 11:59 Intake Total 1140 2956 Balance 1140 2956 Weight 269 kg 122.3 kg Microbiology Results (Last 24 hours) 10/13/20 21:10 Blood Blood Culture Gram Stain - Final Not Reportable 10/13/20 21:10 Blood Blood Culture - Final NO GROWTH 10/14/20 01:10 Blood Blood Culture Gram Stain - Final Not Reportable 10/14/20 01:10 Blood Blood Culture - Final NO GROWTH - Vitals & Intake/Output Vital Signs: Vital Signs Temperature 98.4 F 10/16/20 07:13 Pulse Rate 54 L 10/16/20 07:13 Respiratory Rate 18 10/16/20 07:13 Blood Pressure 126/62 10/16/20 07:13 O2 Sat by Pulse Oximetry 96 10/16/20 07:13 Intake & Output: Intake & Output 10/15/20 10/16/20 10/17/20 10/18/20 11:59 11:59 11:59 11:59 Intake Total 1140 2956 Balance 1140 2956 Weight 269 kg 122.3 kg - Lab Result Diagrams: 10/16/20 04:57 10/16/20 04:57 Micro Results-Entire Visit: Microbiology 10/13/20 21:10 Blood Culture Gram Stain - Final Blood Not Reportable Blood Culture - Final NO GROWTH 10/14/20 01:10 Blood Culture Gram Stain - Final Blood Not Reportable Blood Culture - Final NO GROWTH - Procedures and Test Procedures and Tests throughout Hospitalization: Therapy Orders & Screens 10/14/20 00:50 Oxygen Nasal Cannula 2 lpm Comment: 10/14/20 01:54 Respiratory Therapy Assessment DAILY Comment: Diagnosis: pneumonia 10/14/20 15:40 Respiratory MDI QID Comment: Diagnosis: COVID-19 PNEUMONIA Discharge Exam General Appearance: no apparent distress, alert Neurologic Exam: alert, oriented x 3, cooperative, normal mood/affect, nml cerebellar function, sensation nml, No motor deficits Eye Exam: PERRL, EOMI, eyes nml inspection Ears, Nose, Throat Exam: normal ENT inspection, pharynx normal, moist mucous membranes Neck Exam: normal inspection, non-tender, supple, full range of motion Respiratory Exam: normal breath sounds, lungs clear, No respiratory distress Cardiovascular Exam: regular rate/rhythm, normal heart sounds Gastrointestinal/Abdomen Exam: soft, No tenderness, No mass Pelvic Exam: deferred Rectal Exam: deferred Back Exam: normal inspection, normal range of motion, No CVA tenderness, No vertebral tenderness Extremity Exam: normal inspection, normal range of motion Skin Exam: normal color, warm, dry Final Diagnosis/Problem List - Final Discharge Diagnosis/Problem (1) Pneumonia Status: Acute Assessment & Plan: Last Vital Signs Temp 98.4 F 10/16/20 07:13 Pulse 54 L 10/16/20 07:13 Resp 18 10/16/20 07:13 BP 126/62 10/16/20 07:13 Pulse Ox 96 10/16/20 07:13 Allergies ibuprofen Allergy (Verified 10/13/20 21:39) facial swelling Microbiology 10/13/20 21:10 Blood Blood Culture Gram Stain - Final Not Reportable 10/13/20 21:10 Blood Blood Culture - Final NO GROWTH 10/14/20 01:10 Blood Blood Culture Gram Stain - Final Not Reportable 10/14/20 01:10 Blood Blood Culture - Final NO GROWTH Code(s): J18.9 - PNEUMONIA, UNSPECIFIED ORGANISM (2) COPD (chronic obstructive pulmonary disease) Status: Chronic (3) Diabetes type 2, controlled Status: Chronic Code(s): E11.9 - TYPE 2 DIABETES MELLITUS WITHOUT COMPLICATIONS (4) Hyperlipidemia Status: Chronic Code(s): E78.5 - HYPERLIPIDEMIA, UNSPECIFIED - Discharge Discharge Date: 10/16/20 Disposition: Home, Self-Care Condition: Stable Prescriptions: New Cephalexin Mh 500 mg [Keflex 500 mg] 500 mg PO QID 7 Days #28 capsule Methylprednisolone Packet [Medrol Dosepack] 4 mg PO UD #30 packet Azithromycin [Zithromax] 500 mg PO DAILY 3 Days #3 tablet Continue Potassium Chloride 8 meq PO BID Insulin Aspart [Novolog Flexpen] 7 unit SQ BREAKFAST Insulin Glargine,Hum.rec.anlog [Lantus Solostar] 50 unit SQ DAILY Furosemide 40 mg [Lasix 40 MG] 40 mg PO BID Albuterol 2.5 mg/3 ml Neb [Proventil 2.5 mg/3 ml Neb] 2.5 mg IH Q4- 6HPRN PRN PRN Reason: Shortness Of Breath/Wheezing Rosuvastatin Calcium 20 mg PO UD Ezetimibe 10 mg PO DAILY Clopidogrel Bisulfate [Clopidogrel] 75 mg PO DAILY Fluticasone Propion/Salmeterol [Wixela 250-50 Inhub] 1 inh PO BID Aspirin EC 81 mg [Ecotrin 81 mg] 81 mg PO DAILY Apremilast [Otezla] 30 mg PO BID Multivitamin [Multi-Vitamin Daily] 1 tab PO DAILY Insulin Aspart [Novolog] 12 unit SQ DINNER Insulin Aspart [Novolog] 11 unit SQ LUNCH Doxepin HCl 10 mg PO HS Instructions: Oxygen Therapy, Adult, Chronic Obstructive Pulmonary Disease (COPD) (DC), Pneumonia, Adult (DC) Follow up with: GLENROY CHOI MD [Primary Care Provider] - 10/26/20 2:15 pm (at [place]) Forms: Discharge Instructions
== END 2020-10-16 10:55 | disposition home or self-care (01) | DRG 195 ==
LOC: ED 21:01 → MED SURG 10-14 01:43 → OBSVTOIN 10-14 01:43 → INTOOBSV 10-14 12:10 → MED SURG 10-14 14:22
PROVIDERS: ADMIT General Practice; ATTEND General Practice
DX: J18.9 Pneumonia, unspecified organism (principal); J44.9 Chronic obstructive pulmonary disease, unspecified; E11.9 Type 2 diabetes mellitus without complications; E78.5 Hyperlipidemia, unspecified; Z79.899 Other long term (current) drug therapy; E78.00 Pure hypercholesterolemia, unspecified; Z20.828 Contact with and (suspected) exposure to other viral communicable diseases; Z79.4 Long term (current) use of insulin
CPT/HCPCS: 0241U; 36000; 36415; 71045; 71046; 71250; 80048; 80053; 83880; 84484; 85025; 85379; 85610; 85730; 87040; 93005; 93041; 94640; 94760; 94762; 96375; 99285; J0456; J0696; J1650; J1817; J2930; A9270-GY

== ENCOUNTER 2022-02-08 17:59 | Observation (INO) | payer MEDICARE ==
--- NOTE | 2022-02-08 18:24 | ERPHSYRPT ---
- History of Present Illness Time Seen by Provider: 02/08/22 18:10 Exam Limitations: no limitations Patient Subjective Stated Complaint: PT TO ER WITH COMPLAINTS OF POSSIBLE CVA. PT STATES SHE WAS AT HOME ABOUT AN HOUR AGO WHEN SHE STARTED WITH HEADACHE AND "SHAKINESS" AND STATES SHE DIDNT HAVE ANY FEELING ON HER LEFT SIDE AND TROUBLE SPEAKING. PT STATES " I THINK I HAD A STROKE". Triage Nursing Assessment: PT TO ER BY POV. PT BROUGHT IN BY WHEELCHAIR. PT WITH SLOW SPEECH AND DECREASED SENSATION TO LEFT SIDE. PT STATES SHE ALSO HAS A HEADACHE. PT DIABETIC. PT A&OX3. PT WITH WEAKNESS. PT SKIN PWD. Physician History: Patient is a 61-year-old female presents to emergency department for evaluation of "suspected stroke". Approximately hour prior to arrival patient was at home. Patient states she developed a slight headache and began to shake. Shortly thereafter she felt numbness in her left upper and lower extremity. Patient had difficulty speaking. Symptoms gradually improved. Patient was brought to our ED by her in private vehicle. Symptoms are resolving. Symptoms are mild in intensity no specific worsening improving factors. Patient denies history of the same. No BHT or LOC. No neck pain. Cervical spine cleared clinically. Patient is a diabetic. Patient's glucose has been well controlle per patient. No chest pain or shortness of breath. No nausea vomiting or diaphoresis. No diarrhea. No rash. Patient voices no other complaints or concerns at this kia Portions of this note were created with voice recognition technology. There may be grammatical, spelling, punctuation or sound alike errors Timing/Duration: today Severity: moderate Modifying Factors: Improves With: nothing Associated Symptoms: denies symptoms Allergies/Adverse Reactions: ibuprofen Allergy (Verified 02/08/22 18:10) facial swelling Home Medications: Potassium Chloride 8 meq PO BID 03/16/16 [History] Insulin Aspart [Novolog Flexpen] 7 unit SQ BREAKFAST 09/07/16 [History] Insulin Glargine,Hum.rec.anlog [Lantus Solostar] 50 unit SQ DAILY 09/07/16 [History] Albuterol 2.5 mg/3 ml Neb [Proventil 2.5 mg/3 ml Neb] 2.5 mg IH Q4-6HPRN PRN 05/22/19 [History] Furosemide 40 mg [Lasix 40 MG] 40 mg PO BID 05/22/19 [History] Clopidogrel Bisulfate [Clopidogrel] 75 mg PO DAILY 11/01/19 [History] Ezetimibe 10 mg PO DAILY 11/01/19 [History] Rosuvastatin Calcium 20 mg PO UD 11/01/19 [History] Apremilast [Otezla] 30 mg PO BID 06/01/20 [History] Aspirin EC 81 mg [Ecotrin 81 mg] 81 mg PO DAILY 06/01/20 [History] Fluticasone Propion/Salmeterol [Wixela 250-50 Inhub] 1 inh PO BID 06/01/20 [History] Insulin Aspart [Novolog] 11 unit SQ LUNCH 06/01/20 [History] Insulin Aspart [Novolog] 12 unit SQ DINNER 06/01/20 [History] Multivitamin [Multi-Vitamin Daily] 1 tab PO DAILY 06/01/20 [History] Doxepin HCl 10 mg PO HS 10/13/20 [History] Empagliflozin [Jardiance] 25 mg PO DAILY 02/08/22 [History] Triamcinolone Acetonide 0.1% [Kenalog 0.1% Ointment] 1 applic TOP BID 02/08/22 [History] Hx Tetanus, Diphtheria Vaccination/Date Given: Yes Hx Influenza Vaccination/Date Given: Yes Hx Pneumococcal Vaccination/Date Given: No Travel Risk - International Travel Have you traveled outside of the country in past 3 weeks: No - Coronavirus Screening Are you exhibiting any of the following symptoms?: No Close contact with a COVID-19 positive Pt in past 14-21 Days: No - Vaccine Status Have you recieved a Covid-19 vaccination: Yes [employer]: [employer] - Vaccination Dates Date of 2cond Vaccination (if applicable): unk - Review of Systems Constitutional: No Symptoms, No Fever, No Chills Eyes: No Symptoms Ears, Nose, & Throat: No Symptoms Respiratory: No Symptoms, No Cough, No Dyspnea Cardiac: No Symptoms, No Chest Pain, No Edema, No Syncope Abdominal/Gastrointestinal: No Symptoms, No Abdominal Pain, No Nausea, No Vomiting, No Diarrhea Genitourinary Symptoms: No Symptoms, No Dysuria Musculoskeletal: No Symptoms, No Back Pain, No Neck Pain Skin: No Symptoms, No Rash Neurological: No Symptoms, No Dizziness, No Focal Weakness, No Sensory Changes Psychological: No Symptoms Endocrine: No Symptoms Hematologic/Lymphatic: No Symptoms Immunological/Allergic: No Symptoms All Other Systems: Reviewed and Negative - Past Medical History Pertinent Past Medical History: Yes Neurological History: No Pertinent History ENT History: No Pertinent History Cardiac History: High Cholesterol Respiratory History: Asthma, COPD, Pneumonia Endocrine Medical History: Diabetes Type II Musculoskeletal History: Osteoarthritis GI Medical History: GERD History: No Pertinent History Psycho-Social History: Depression Female Reproductive Disorders: No Pertinent History Other Medical History: Dyspnea, Mediastinal adenopathy, HX constipation, Lateral epicondylitis, BUE pain, HX CO2 poisoning, HX UTI, syncope, lymphedema, sinusitis, HX Thrombophlebitis leg, JAMES SHOULDER FX - Past Surgical History Past Surgical History: Yes Neuro Surgical History: No Pertinent History Cardiac: No Pertinent History Respiratory: Other Gastrointestinal: No Pertinent History Genitourinary: No Pertinent History Musculoskeletal: Orthopedic Surgery Female Surgical History: Section Other Surgical History: csection x2. sinus SURGERY X7. vascular surgery right leg. arterial surgery on left leg - Social History Smoking Status: Current every day smoker How long have you smoked: 44 years Exposure to second hand smoke: Yes Drug Use: none Patient Lives Alone: No Significant Family History: no pertinent family hx - Nursing Vital Signs Nursing Vital Signs: Initial Vital Signs Temperature 98.3 F 02/08/22 18:00 Pulse Rate 82 02/08/22 18:00 Respiratory Rate 19 02/08/22 18:00 Blood Pressure 148/85 02/08/22 18:00 O2 Sat by Pulse Oximetry 98 02/08/22 18:00 Pain Scale Pain Intensity 0 - Physical Exam General Appearance: no apparent distress, alert Eye Exam: PERRL/EOMI, eyes nml inspection Ears, Nose, Throat Exam: normal ENT inspection, TMs normal, pharynx normal, moist mucous membranes Neck Exam: normal inspection, non-tender, supple, full range of motion Respiratory Exam: normal breath sounds, lungs clear, No respiratory distress Cardiovascular Exam: regular rate/rhythm, normal heart sounds, normal peripheral pulses Gastrointestinal/Abdomen Exam: soft, normal bowel sounds, No tenderness, No mass Back Exam: normal inspection, normal range of motion, No CVA tenderness, No vertebral tenderness Extremity Exam: normal inspection, normal range of motion, pelvis stable Neurologic Exam: alert, oriented x 3, cooperative, normal mood/affect, sensation nml, No motor deficits Skin Exam: normal color, warm, dry, No rash Lymphatic Exam: No adenopathy SpO2 Interpretation: normal SpO2: 95 O2 Delivery: Room Air - Course Nursing assessment & vital signs reviewed: Yes EKG Interpreted by Me: RATE (72), Sinus Rhythm, NORMAL AXIS, NORMAL INTERVALS - CT Exams Head CT Interpretation: Tele-radiologist Report (Pansinusitis otherwise negative CT head.) Ordered Tests: Active Orders 24 hr Category Date Time Status Double Head Machine Operator STAT Care 02/08/22 18:18 Active EKG-ER Only STAT Care 02/08/22 18:17 Active IV Insertion STAT Care 02/08/22 18:17 Active Pulse Oximetry (ED) STAT Care 02/08/22 18:17 Active HEAD WITHOUT CONTRAST [CT] Stat Exams 02/08/22 18:30 Taken CBC W DIFF Stat Lab 02/08/22 18:00 Results CMP Stat Lab 02/08/22 18:00 Completed ETHYL ALCOHOL Stat Lab 02/08/22 18:00 Completed MAGNESIUM Stat Lab 02/08/22 18:00 Completed Manual Differential NC Stat Lab 02/08/22 18:00 Results Pathologist Review Stat Lab 02/08/22 18:00 Results TROPONIN Q4H Lab 02/08/22 18:00 Completed TROPONIN Q4H Lab 02/08/22 22:30 Ordered TROPONIN Q4H Lab 02/09/22 02:30 Ordered UA W/RFX CULTURE Stat Lab 02/08/22 19:09 Completed Urine Triage Profile Stat Lab 02/08/22 19:09 Completed Transfer Order Routine Transfer 02/08/22 Ordered Medication Summary Generic Name Dose Route Start Last Admin Trade Name Freq PRN Reason Stop Dose Admin Sodium Chloride 1,000 mls @ 75 mls/hr 02/08/22 18:30 02/08/22 19:39 Sodium Chloride 0.9% 1000 Ml IV 03/10/22 18:29 75 mls/hr .[id number] ABDOUL Administration Discontinued Medications Generic Name Dose Route Start Last Admin Trade Name Freq PRN Reason Stop Dose Admin Aspirin 324 mg 02/08/22 20:48 02/08/22 20:48 Aspirin 81 Mg Tab.Chew PO 02/08/22 20:49 324 mg STAT ONE Administration Lab/Rad Data: Laboratory Result Diagrams 02/08/22 18:00 02/08/22 18:00 Laboratory Results 02/08/22 02/08/22 02/08/22 Range/Units 19:09 19:09 18:45 WBC (4.0-10.5) x10^3/uL RBC (4.1-5.4) x10^6/uL Hgb (12.0-16.0) g/dL Hct (35-47) % MCV (78-100) fL MCH (26-32) pg MCHC (32-36) g/dL RDW (11.5-14.0) % Plt Count (150-450) x10^3/uL MPV (7.5-11.0) fL Smear Path Review Sodium (137-145) mmol/L Potassium (3.5-5.1) mmol/L Chloride (98-107) mmol/L Carbon Dioxide (22-30) mmol/L Anion Gap (5-15) MEQ/L BUN (7-17) mg/dL Creatinine (0.52-1.04) mg/dL Estimated GFR ML/MIN Glucose (74-106) mg/dL Calcium (8.4-10.2) mg/dL Magnesium (1.6-2.3) mg/dL Total Bilirubin (0.2-1.3) mg/dL AST (14-36) U/L ALT (0-35) U/L Alkaline Phosphatase (38-126) U/L Troponin I (0.000-0.034) ng/mL Serum Total Protein (6.3-8.2) g/dL Albumin (3.5-5.0) g/dL Urinalys Dipstick Clnc MAIN LAB Urine Color YELLOW (YELLOW) Urine Appearance CLEAR (CLEAR) Urine pH 7.0 (5-6) Ur Specific [place] 1.015 (1.005-1.025) POC Urine Protein Conf NEGATIVE (Negative) Urine Ketones NEGATIVE (NEGATIVE) Urine Nitrite NEGATIVE (NEGATIVE) Urine Bilirubin NEGATIVE (NEGATIVE) Urine Urobilinogen 1 (0-1) mg/dL Urine Leukocytes NEGATIVE (NEGATIVE) Urine WBC (Auto) NONE (0-5) /HPF Urine RBC (Auto) NONE (0-2) /HPF U Epithel Cells (Auto) RARE (FEW) /HPF Urine Bacteria (Auto) Not Reportable Urine RBC NEGATIVE (0-5) Hao/ul Ur Culture Indicated? NO Urine Glucose 500 (NEGATIVE) mg/dL Urine Opiates Level NEGATIVE (NEGATIVE) Ur Methadone NEGATIVE (NEGATIVE) Urine Barbiturates NEGATIVE (NEGATIVE) Ur Phencyclidine (PCP) NEGATIVE (NEGATIVE) Urine Amphetamine NEGATIVE (NEGATIVE) U Benzodiazepine Level NEGATIVE (NEGATIVE) Urine Cocaine NEGATIVE (NEGATIVE) Urine Marijuana (THC) NEGATIVE (NEGATIVE) Ethyl Alcohol (0-10) mg/dL Influenza Type A Ag NEGATIVE (NEGATIVE) Influenza Type B Ag NEGATIVE (NEGATIVE) RSV (PCR) NEGATIVE (Negative) SARS-CoV-2 (PCR) NEGATIVE (NEGATIVE) 02/08/22 02/08/22 02/08/22 Range/Units 18:00 18:00 18:00 WBC 9.7 (4.0-10.5) x10^3/uL RBC 6.81 H (4.1-5.4) x10^6/uL Hgb 13.1 (12.0-16.0) g/dL Hct 43.5 (35-47) % MCV 63.9 L (78-100) fL MCH 19.2 L (26-32) pg MCHC 30.1 L (32-36) g/dL RDW 19.9 H (11.5-14.0) % Plt Count 269 (150-450) x10^3/uL MPV 9.7 (7.5-11.0) fL Smear Path Review Pending Sodium 139 (137-145) mmol/L Potassium 3.8 (3.5-5.1) mmol/L Chloride 101 (98-107) mmol/L Carbon Dioxide 31 H (22-30) mmol/L Anion Gap 11.4 (5-15) MEQ/L BUN 15 (7-17) mg/dL Creatinine 0.70 (0.52-1.04) mg/dL Estimated GFR > 60.0 ML/MIN Glucose 96 (74-106) mg/dL Calcium 9.9 (8.4-10.2) mg/dL Magnesium 2.3 (1.6-2.3) mg/dL Total Bilirubin 0.70 (0.2-1.3) mg/dL AST 31 (14-36) U/L ALT 32 (0-35) U/L Alkaline Phosphatase 92 (38-126) U/L Troponin I < 0.012 (0.000-0.034) ng/mL Serum Total Protein 8.3 H (6.3-8.2) g/dL Albumin 4.8 (3.5-5.0) g/dL Urinalys Dipstick Clnc Urine Color (YELLOW) Urine Appearance (CLEAR) Urine pH (5-6) Ur Specific [place] (1.005-1.025) POC Urine Protein Conf (Negative) Urine Ketones (NEGATIVE) Urine Nitrite (NEGATIVE) Urine Bilirubin (NEGATIVE) Urine Urobilinogen (0-1) mg/dL Urine Leukocytes (NEGATIVE) Urine WBC (Auto) (0-5) /HPF Urine RBC (Auto) (0-2) /HPF U Epithel Cells (Auto) (FEW) /HPF Urine Bacteria (Auto) Urine RBC (0-5) Hao/ul Ur Culture Indicated? Urine Glucose (NEGATIVE) mg/dL Urine Opiates Level (NEGATIVE) Ur Methadone (NEGATIVE) Urine Barbiturates (NEGATIVE) Ur Phencyclidine (PCP) (NEGATIVE) Urine Amphetamine (NEGATIVE) U Benzodiazepine Level (NEGATIVE) Urine Cocaine (NEGATIVE) Urine Marijuana (THC) (NEGATIVE) Ethyl Alcohol < 10 (0-10) mg/dL Influenza Type A Ag (NEGATIVE) Influenza Type B Ag (NEGATIVE) RSV (PCR) (Negative) SARS-CoV-2 (PCR) (NEGATIVE) - Progress Progress: improved Progress Note: Patient evaluated by telemetry neuro. No indication for tPA. However he advises admission for MRI head and TIA work-up. As patient was being admitted she advises she had what she believed was cellulitis of her right leg that was under her pant leg. There is some redness to this area. No white count no f ever. This was discussed with who states that this finding is chronic. However blood cultures were ordered. Zosyn was ordered as well. Dr. Choi accepted admission to observation. Patient agrees to admission at [facility] for further evaluation and treatment. Patient received aspirin and IV fluids. at bedside. Laboratory work-up essentially nonremarkable. CT head shows pansinusitis otherwise no acute intracranial pathology. They voiced no other complaints or concerns at this time. Portions of this note were created with voice recognition technology. There may be grammatical, spelling, punctuation or sound alike errors 02/08/22 21:05 Discussed with : Aster Will see patient in: hospital (observation) Counseled pt/family regarding: lab results, diagnosis, rad results - Departure Departure Disposition: Observation Clinical Impression: sadler sinusitis, TIA (transient ischemic attack), Cellulitis Condition: Stable Critical Care Time: No Referrals: GLENROY CHOI MD [Primary Care Provider] - Follow up/PCP as directed
[2022-02-08] MEDS ORDERED: Sodium Chloride 0.9% 1000 ML 1,000 ML IV SCH (18:30)
[2022-02-08 18:36] LABS: Hematocrit 43.5 % (35-47); Hemoglobin 13.1 g/dL (12.0-16.0); Mean Cell Volume 63.9 fL (78-100); Mean Corpuscular Hemoglobin 19.2 pg (26-32); Mean Corpuscular Hgb Concent. 30.1 g/dL (32-36); Mean Platelet Volume 9.7 fL (7.5-11.0); Platelet Count 269 x10^3/uL (150-450); Red Blood Count 6.81 x10^6/uL (4.1-5.4); Red Cell Distribution Width 19.9 % (11.5-14.0); White Blood Count 9.7 x10^3/uL (4.0-10.5)
[2022-02-08 18:46] LABS: ALBUMIN 4.8 g/dL (3.5-5.0); ALKALINE PHOSPHATASE 92 U/L (38-126); ANION GAP 11.4 MEQ/L (5-15); BLOOD UREA NITROGEN 15 mg/dL (7-17); CHLORIDE 101 mmol/L (98-107); Calcium 9.9 mg/dL (8.4-10.2); Carbon Dioxide 31 mmol/L (22-30); EST GLOMERULAR FILTRATION RATE > 60.0 ML/MIN; ETHYL ALCOHOL < 10 mg/dL (0-10); Glucose 96 mg/dL (74-106); MAGNESIUM 2.3 mg/dL (1.6-2.3); Potassium 3.8 mmol/L (3.5-5.1); SGOT/AST 31 U/L (14-36); SGPT/ALT 32 U/L (0-35); SODIUM 139 mmol/L (137-145); Total Protein 8.3 g/dL (6.3-8.2)
[2022-02-08 19:28] LABS: INFLUENZA A NEGATIVE (NEGATIVE); INFLUENZA B NEGATIVE (NEGATIVE); RESPIRATORY SYNCTIAL VIRUS NEGATIVE (Negative); SARS-CoV-2 Xpert Express NEGATIVE (NEGATIVE)
[2022-02-08] MEDS ORDERED: Sodium Chloride 0.9% 1000 ML 1,000 ML ONE (19:33)
[2022-02-08 19:59] LABS: Appearance CLEAR (CLEAR); Bilirubin NEGATIVE (NEGATIVE); Dipstick done @ ? MAIN LAB; Glucose 500 mg/dL (NEGATIVE); Ketones NEGATIVE (NEGATIVE); Nitrite NEGATIVE (NEGATIVE); Protein,Urine Dip NEGATIVE (Negative); RBC NEGATIVE Ery/ul (0-5); Specific Gravity 1.015 (1.005-1.025); Urobilinogen 1 mg/dL (0-1)
[2022-02-08 20:01] LABS: Epithelial Cells RARE /HPF (FEW)
[2022-02-08 20:03] LABS: Urine Cultured Indicated? NO
[2022-02-08 20:11] LABS: Amphetamine,Urine NEGATIVE (NEGATIVE); Barbiturate,Urine NEGATIVE (NEGATIVE); Benzodiazepine,Urine NEGATIVE (NEGATIVE); Cocaine,Urine NEGATIVE (NEGATIVE); Methadone,Urine NEGATIVE (NEGATIVE); Opiate,Urine NEGATIVE (NEGATIVE); PCP,Urine NEGATIVE (NEGATIVE); THC,Urine NEGATIVE (NEGATIVE)
[2022-02-08] MEDS ORDERED: BABY ASPIRIN 81 MG CHEW PO ONE (20:48)
[2022-02-08 21:01] LABS: Basophil 1 % (0.0-1.0); Eosinophil 3 % (0.00-3.0); Lymphocytes 23 % (24-44); Monocyte 13 % (0.0-12.0); Platelet Estimate NORMAL (NORMAL); Total Cells Counted 100
[2022-02-08 21:04] LABS: Microcytosis 2+
[2022-02-08 21:05] LABS: Poikilocytosis 2+; Polychromasia 1+; Schistocytes 1+
[2022-02-08 21:12] LABS: ANISOCYTOSIS 3+
[2022-02-08] MEDS ORDERED: MILK OF MAGNESIA 30 ML PO PRN (21:21)
[2022-02-08] MEDS ORDERED: MAALOX ES 30 ML UNIT DOSE PO PRN (21:21)
[2022-02-08] MEDS ORDERED: TYLENOL 325 MG PO PRN (21:21)
[2022-02-08] MEDS ORDERED: Senokot-S Tablet PO PRN (21:21)
[2022-02-08] MEDS ORDERED: PIPERACILLIN/TAZOBACTAM IV ONE ×2 (23:40→23:42)
[2022-02-08] MEDS ORDERED: Sodium Chloride 100ML MINI-BAG PLUS 100 ML IV ONE (23:42)
[2022-02-08] MEDS: PIPERACILLIN/TAZOBACTAM 3.375 GM in Sodium Chloride 100ML MINI-BAG PLUS 100 ML IV SCH (23:45)
[2022-02-09] MEDS ORDERED: PIPERACILLIN/TAZOBACTAM IV ONE (05:39)
[2022-02-09] MEDS ORDERED: Sodium Chloride 100ML MINI-BAG PLUS 100 ML IV ONE (05:40)
[2022-02-09 05:48] LABS: Risk Ratio 4.2
[2022-02-09] MEDS: PIPERACILLIN/TAZOBACTAM 3.375 GM in Sodium Chloride 100ML MINI-BAG PLUS 100 ML IV SCH (05:51)
[2022-02-09] MEDS ORDERED: PROVENTIL 2.5 MG/3 ML NEB IH ONE (06:47)
[2022-02-09] MEDS ORDERED: Advair Hfa 230/21 Mcg COMMON CANISTER IH SCH (07:00)
[2022-02-09] MEDS ORDERED: PROVENTIL 2.5 MG/3 ML NEB IH PRN (07:00)
[2022-02-09 08:20] VITALS: BP 113/55; PULSE 72; O2SAT 90
--- NOTE | 2022-02-09 08:36 | XRAY ---
Indication: Left-sided weakness. Speech problems. Blood thinner therapy. Stroke. Multiple contiguous axial images obtained through the head without contrast. Comparison: January 22, 2017 Age-appropriate global atrophy. No acute intracranial hemorrhage, abnormal extra-axial fluid collection, or mass effect. Fourth ventricle is midline without hydrocephalus. Priest-white matter differentiation preserved. Bony calvarium intact. Again near-complete opacification of the visualized paranasal sinuses. Mastoid air cells are clear. Impression: Again pansinusitis. Remaining CT head without contrast exam is again negative.
--- NOTE | 2022-02-09 09:04 | PCM.SSS ---
History of Present Illness - Chief Complaint Chief Complaint: TIA History of Present Illness: is a 61 year old female who presented to the ER with difficulty with slow speech and decreased sensation on her left side, her symptoms resolved rather quickly after arrival, she has no chest pain or shortness of breath. she does have a history of PAD with stents and follows with Dr Fischer, she feels normal and would like to go home today. she admits to a great deal of stress recently with family issues. she had some headache on arrival but this is common for her with chronic sinus issues. - Review of Systems Constitutional: No Fever, No Chills Respiratory: No Cough, No Short Of Breath Cardiac: No Chest Pain, No Edema, No Syncope Abdominal/Gastrointestinal: No Abdominal Pain, No Nausea, No Vomiting, No Diarrhea Skin: No Rash All Other Systems: Reviewed and Negative Medications & Allergies Home Medications: Home Medication List Potassium Chloride 8 meq PO BID 03/16/16 [History Confirmed 02/08/22] Insulin Glargine,Hum.rec.anlog [Lantus Solostar] 42 unit SQ DAILY 09/07/16 [History Confirmed 02/08/22] Albuterol 2.5 mg/3 ml Neb [Proventil 2.5 mg/3 ml Neb] 2.5 mg IH Q4-6HPRN PRN 05/22/19 [History Confirmed 02/08/22] Furosemide 40 mg [Lasix 40 MG] 30 mg PO BID 05/22/19 [History Confirmed 02/08/22] Clopidogrel Bisulfate [Clopidogrel] 75 mg PO DAILY 11/01/19 [History Confirmed 02/08/22] Ezetimibe 10 mg PO DAILY 11/01/19 [History Confirmed 02/08/22] Rosuvastatin Calcium 20 mg PO UD 11/01/19 [History Confirmed 02/08/22] Apremilast [Otezla] 30 mg PO BID 06/01/20 [History Confirmed 02/08/22] Aspirin EC 81 mg [Ecotrin 81 mg] 81 mg PO DAILY 06/01/20 [History Confirmed 02/08/22] Fluticasone Propion/Salmeterol [Wixela 250-50 Inhub] 1 inh PO BID 06/01/20 [History Confirmed 02/08/22] Multivitamin [Multi-Vitamin Daily] 1 tab PO DAILY 06/01/20 [History Confirmed 02/08/22] Empagliflozin [Jardiance] 25 mg PO DAILY 02/08/22 [History Confirmed 02/08/22] Triamcinolone Acetonide 0.1% [Kenalog 0.1% Ointment] 1 applic TOP BID 02/08/22 [History Confirmed 02/08/22] Cefdinir [Omnicef 300 mg] 300 mg PO BID #14 cap 02/09/22 [Rx] Allergies/Adverse Reactions: Allergies Allergy/AdvReac Type Severity Reaction Status Date / Time ibuprofen Allergy facial Verified 02/08/22 18:10 swelling - Past Medical History Past Medical History: Yes Neurological History: No Pertinent History ENT History: No Pertinent History Cardiac History: High Cholesterol Respiratory History: Asthma, COPD, Pneumonia Endocrine Medical History: Diabetes Type II Musculoskelatal History: Osteoarthritis GI Medical History: GERD History: No Pertinent History Pyscho-Social History: Depression Reproductive Disorders: No Pertinent History Comment: Dyspnea, Mediastinal adenopathy, HX constipation, Lateral epicondylitis, BUE pain, HX CO2 poisoning, HX UTI, syncope, lymphedema, sinusitis, HX Thrombophlebitis leg, JAMES SHOULDER FX - Female History Are you now?: No - Past Surgical History Past Surgical History: Yes Neuro Surgical History: No Pertinent History Cardiac History: No Pertinent History Respiratory Surgery: Other GI Surgical History: No Pertinent History Genitourinary Surgical Hx: No Pertinent History Musculskeletal Surgical Hx: Orthopedic Surgery Female Surgical History: Section Other Surgical History: csection x2. sinus SURGERY X7. vascular surgery right leg. arterial surgery on left leg - Social History Smoking Status: Current every day smoker How long have you smoked: 47 yrs Exposure to second hand smoke: Yes Alcohol: None Drug Use: none Significant Family History: no pertinent family hx - Physical Exam Vital Signs: Vital Signs - 24 hr Temp Pulse Resp BP Pulse Ox 02/09/22 08:00 98.5 F 72 14 113/55 90 L 02/09/22 07:22 71 16 91 L 02/09/22 04:00 97.7 F 75 18 116/55 92 L 02/08/22 23:48 97.8 F 75 20 137/63 94 L 02/08/22 23:14 74 20 93 L 02/08/22 22:44 93 L 02/08/22 22:03 97.9 F 74 20 136/74 93 L 02/08/22 21:08 95 02/08/22 20:00 75 19 146/86 96 02/08/22 19:15 75 19 148/80 95 02/08/22 19:00 74 15 150/82 97 02/08/22 18:20 95 02/08/22 18:00 98.3 F 82 19 148/85 98 General Appearance: no apparent distress, alert, obese Neurologic Exam: alert, oriented x 3, cooperative Respiratory Exam: normal breath sounds, lungs clear, No respiratory distress Cardiovascular Exam: regular rate/rhythm, normal heart sounds, normal peripheral pulses Gastrointestinal/Abdomen Exam: soft, normal bowel sounds, No tenderness, No mass Extremity Exam: normal inspection, normal range of motion, pelvis stable Skin Exam: normal color, warm, dry, No rash Wound Assessment: Skin/Wound Assessment Wound/Incision Assessment Start: 02/08/22 22:42 Text: Status: Active Freq: Q6H Protocol: Document 02/09/22 04:42 RG (Rec: 02/09/22 05:31 RG [id number]) Wound/Incision Assessment right lower leg Wound Assessment Admission Wound Stage Non Pressure Wound Drainage Amount None Surrounding Tissue [place] Comment PT states cellulitis being treated by Dr. Mckay Left lower leg Wound Assessment Admission Wound Stage Non Pressure Wound Dressing Status Dry & Intact Drainage Amount None Surrounding Tissue [place] Comment PT states cellulitis, Being treated By Dr Mckay Reumatologist Wound Photo Photo Taken No Results - Labs Lab/Micro Results: Lab Results-Last 24 Hours 02/08/22 02/08/22 02/08/22 Range/Units 18:00 18:00 18:00 WBC 9.7 (4.0-10.5) x10^3/uL RBC 6.81 H (4.1-5.4) x10^6/uL Hgb 13.1 (12.0-16.0) g/dL Hct 43.5 (35-47) % MCV 63.9 L (78-100) fL MCH 19.2 L (26-32) pg MCHC 30.1 L (32-36) g/dL RDW 19.9 H (11.5-14.0) % Plt Count 269 (150-450) x10^3/uL MPV 9.7 (7.5-11.0) fL Segmented Neutrophils 60 (36.0-66.0) % Lymphocytes (Manual) 23 L (24-44) % Monocytes (Manual) 13 H (0.0-12.0) % Eosinophils (Manual) 3 (0.00-3.0) % Basophils (Manual) 1 (0.0-1.0) % Platelet Estimate NORMAL (NORMAL) RBC Morphology ABNORMAL Polychromasia 1+ Poikilocytosis 2+ Anisocytosis 3+ Microcytosis 2+ Schistocytes 1+ Smear Path Review Pending Sodium 139 (137-145) mmol/L Potassium 3.8 (3.5-5.1) mmol/L Chloride 101 (98-107) mmol/L Carbon Dioxide 31 H (22-30) mmol/L Anion Gap 11.4 (5-15) MEQ/L BUN 15 (7-17) mg/dL Creatinine 0.70 (0.52-1.04) mg/dL Estimated GFR > 60.0 ML/MIN Glucose 96 (74-106) mg/dL POC Glucometer (74 to 106) mg/dL Calcium 9.9 (8.4-10.2) mg/dL Magnesium 2.3 (1.6-2.3) mg/dL Total Bilirubin 0.70 (0.2-1.3) mg/dL AST 31 (14-36) U/L ALT 32 (0-35) U/L Alkaline Phosphatase 92 (38-126) U/L Troponin I < 0.012 (0.000-0.034) ng/mL Serum Total Protein 8.3 H (6.3-8.2) g/dL Albumin 4.8 (3.5-5.0) g/dL Triglycerides (30-150) mg/dL Cholesterol (50-200) mg/dL LDL Cholesterol (30-100) mg/dL HDL Cholesterol (40-60) mg/dL Heart Disease Risk Ratio Urinalys Dipstick Clnc Urine Color (YELLOW) Urine Appearance (CLEAR) Urine pH (5-6) Ur Specific [place] (1.005-1.025) POC Urine Protein Conf (Negative) Urine Ketones (NEGATIVE) Urine Nitrite (NEGATIVE) Urine Bilirubin (NEGATIVE) Urine Urobilinogen (0-1) mg/dL Urine Leukocytes (NEGATIVE) Urine WBC (Auto) (0-5) /HPF Urine RBC (Auto) (0-2) /HPF U Epithel Cells (Auto) (FEW) /HPF Urine Bacteria (Auto) Urine RBC (0-5) Hao/ul Ur Culture Indicated? Urine Glucose (NEGATIVE) mg/dL Urine Opiates Level (NEGATIVE) Ur Methadone (NEGATIVE) Urine Barbiturates (NEGATIVE) Ur Phencyclidine (PCP) (NEGATIVE) Urine Amphetamine (NEGATIVE) U Benzodiazepine Level (NEGATIVE) Urine Cocaine (NEGATIVE) Urine Marijuana (THC) (NEGATIVE) Ethyl Alcohol < 10 (0-10) mg/dL Influenza Type A Ag (NEGATIVE) Influenza Type B Ag (NEGATIVE) RSV (PCR) (Negative) SARS-CoV-2 (PCR) (NEGATIVE) 02/08/22 02/08/22 02/08/22 Range/Units 18:45 19:09 19:09 WBC (4.0-10.5) x10^3/uL RBC (4.1-5.4) x10^6/uL Hgb (12.0-16.0) g/dL Hct (35-47) % MCV (78-100) fL MCH (26-32) pg MCHC (32-36) g/dL RDW (11.5-14.0) % Plt Count (150-450) x10^3/uL MPV (7.5-11.0) fL Segmented Neutrophils (36.0-66.0) % Lymphocytes (Manual) (24-44) % Monocytes (Manual) (0.0-12.0) % Eosinophils (Manual) (0.00-3.0) % Basophils (Manual) (0.0-1.0) % Platelet Estimate (NORMAL) RBC Morphology Polychromasia Poikilocytosis Anisocytosis Microcytosis Schistocytes Smear Path Review Sodium (137-145) mmol/L Potassium (3.5-5.1) mmol/L Chloride (98-107) mmol/L Carbon Dioxide (22-30) mmol/L Anion Gap (5-15) MEQ/L BUN (7-17) mg/dL Creatinine (0.52-1.04) mg/dL Estimated GFR ML/MIN Glucose (74-106) mg/dL POC Glucometer (74 to 106) mg/dL Calcium (8.4-10.2) mg/dL Magnesium (1.6-2.3) mg/dL Total Bilirubin (0.2-1.3) mg/dL AST (14-36) U/L ALT (0-35) U/L Alkaline Phosphatase (38-126) U/L Troponin I (0.000-0.034) ng/mL Serum Total Protein (6.3-8.2) g/dL Albumin (3.5-5.0) g/dL Triglycerides (30-150) mg/dL Cholesterol (50-200) mg/dL LDL Cholesterol (30-100) mg/dL HDL Cholesterol (40-60) mg/dL Heart Disease Risk Ratio Urinalys Dipstick Clnc MAIN LAB Urine Color YELLOW (YELLOW) Urine Appearance CLEAR (CLEAR) Urine pH 7.0 (5-6) Ur Specific [place] 1.015 (1.005-1.025) POC Urine Protein Conf NEGATIVE (Negative) Urine Ketones NEGATIVE (NEGATIVE) Urine Nitrite NEGATIVE (NEGATIVE) Urine Bilirubin NEGATIVE (NEGATIVE) Urine Urobilinogen 1 (0-1) mg/dL Urine Leukocytes NEGATIVE (NEGATIVE) Urine WBC (Auto) NONE (0-5) /HPF Urine RBC (Auto) NONE (0-2) /HPF U Epithel Cells (Auto) RARE (FEW) /HPF Urine Bacteria (Auto) Not Reportable Urine RBC NEGATIVE (0-5) Hao/ul Ur Culture Indicated? NO Urine Glucose 500 (NEGATIVE) mg/dL Urine Opiates Level NEGATIVE (NEGATIVE) Ur Methadone NEGATIVE (NEGATIVE) Urine Barbiturates NEGATIVE (NEGATIVE) Ur Phencyclidine (PCP) NEGATIVE (NEGATIVE) Urine Amphetamine NEGATIVE (NEGATIVE) U Benzodiazepine Level NEGATIVE (NEGATIVE) Urine Cocaine NEGATIVE (NEGATIVE) Urine Marijuana (THC) NEGATIVE (NEGATIVE) Ethyl Alcohol (0-10) mg/dL Influenza Type A Ag NEGATIVE (NEGATIVE) Influenza Type B Ag NEGATIVE (NEGATIVE) RSV (PCR) NEGATIVE (Negative) SARS-CoV-2 (PCR) NEGATIVE (NEGATIVE) 02/08/22 02/09/22 02/09/22 Range/Units 22:25 01:56 04:40 WBC (4.0-10.5) x10^3/uL RBC (4.1-5.4) x10^6/uL Hgb (12.0-16.0) g/dL Hct (35-47) % MCV (78-100) fL MCH (26-32) pg MCHC (32-36) g/dL RDW (11.5-14.0) % Plt Count (150-450) x10^3/uL MPV (7.5-11.0) fL Segmented Neutrophils (36.0-66.0) % Lymphocytes (Manual) (24-44) % Monocytes (Manual) (0.0-12.0) % Eosinophils (Manual) (0.00-3.0) % Basophils (Manual) (0.0-1.0) % Platelet Estimate (NORMAL) RBC Morphology Polychromasia Poikilocytosis Anisocytosis Microcytosis Schistocytes Smear Path Review Sodium (137-145) mmol/L Potassium (3.5-5.1) mmol/L Chloride (98-107) mmol/L Carbon Dioxide (22-30) mmol/L Anion Gap (5-15) MEQ/L BUN (7-17) mg/dL Creatinine (0.52-1.04) mg/dL Estimated GFR ML/MIN Glucose (74-106) mg/dL POC Glucometer (74 to 106) mg/dL Calcium (8.4-10.2) mg/dL Magnesium (1.6-2.3) mg/dL Total Bilirubin (0.2-1.3) mg/dL AST (14-36) U/L ALT (0-35) U/L Alkaline Phosphatase (38-126) U/L Troponin I < 0.012 < 0.012 (0.000-0.034) ng/mL Serum Total Protein (6.3-8.2) g/dL Albumin (3.5-5.0) g/dL Triglycerides 214 H (30-150) mg/dL Cholesterol 119 (50-200) mg/dL LDL Cholesterol 60 (30-100) mg/dL HDL Cholesterol 29 L (40-60) mg/dL Heart Disease Risk Ratio 4.2 Urinalys Dipstick Clnc Urine Color (YELLOW) Urine Appearance (CLEAR) Urine pH (5-6) Ur Specific [place] (1.005-1.025) POC Urine Protein Conf (Negative) Urine Ketones (NEGATIVE) Urine Nitrite (NEGATIVE) Urine Bilirubin (NEGATIVE) Urine Urobilinogen (0-1) mg/dL Urine Leukocytes (NEGATIVE) Urine WBC (Auto) (0-5) /HPF Urine RBC (Auto) (0-2) /HPF U Epithel Cells (Auto) (FEW) /HPF Urine Bacteria (Auto) Urine RBC (0-5) Aho/ul Ur Culture Indicated? Urine Glucose (NEGATIVE) mg/dL Urine Opiates Level (NEGATIVE) Ur Methadone (NEGATIVE) Urine Barbiturates (NEGATIVE) Ur Phencyclidine (PCP) (NEGATIVE) Urine Amphetamine (NEGATIVE) U Benzodiazepine Level (NEGATIVE) Urine Cocaine (NEGATIVE) Urine Marijuana (THC) (NEGATIVE) Ethyl Alcohol (0-10) mg/dL Influenza Type A Ag (NEGATIVE) Influenza Type B Ag (NEGATIVE) RSV (PCR) (Negative) SARS-CoV-2 (PCR) (NEGATIVE) 02/09/22 02/09/22 Range/Units 04:40 07:49 WBC (4.0-10.5) x10^3/uL RBC (4.1-5.4) x10^6/uL Hgb (12.0-16.0) g/dL Hct (35-47) % MCV (78-100) fL MCH (26-32) pg MCHC (32-36) g/dL RDW (11.5-14.0) % Plt Count (150-450) x10^3/uL MPV (7.5-11.0) fL Segmented Neutrophils (36.0-66.0) % Lymphocytes (Manual) (24-44) % Monocytes (Manual) (0.0-12.0) % Eosinophils (Manual) (0.00-3.0) % Basophils (Manual) (0.0-1.0) % Platelet Estimate (NORMAL) RBC Morphology Polychromasia Poikilocytosis Anisocytosis Microcytosis Schistocytes Smear Path Review Sodium (137-145) mmol/L Potassium (3.5-5.1) mmol/L Chloride (98-107) mmol/L Carbon Dioxide (22-30) mmol/L Anion Gap (5-15) MEQ/L BUN (7-17) mg/dL Creatinine (0.52-1.04) mg/dL Estimated GFR ML/MIN Glucose (74-106) mg/dL POC Glucometer 123 H (74 to 106) mg/dL Calcium (8.4-10.2) mg/dL Magnesium (1.6-2.3) mg/dL Total Bilirubin (0.2-1.3) mg/dL AST (14-36) U/L ALT (0-35) U/L Alkaline Phosphatase (38-126) U/L Troponin I < 0.012 (0.000-0.034) ng/mL Serum Total Protein (6.3-8.2) g/dL Albumin (3.5-5.0) g/dL Triglycerides (30-150) mg/dL Cholesterol (50-200) mg/dL LDL Cholesterol (30-100) mg/dL HDL Cholesterol (40-60) mg/dL Heart Disease Risk Ratio Urinalys Dipstick Clnc Urine Color (YELLOW) Urine Appearance (CLEAR) Urine pH (5-6) Ur Specific [place] (1.005-1.025) POC Urine Protein Conf (Negative) Urine Ketones (NEGATIVE) Urine Nitrite (NEGATIVE) Urine Bilirubin (NEGATIVE) Urine Urobilinogen (0-1) mg/dL Urine Leukocytes (NEGATIVE) Urine WBC (Auto) (0-5) /HPF Urine RBC (Auto) (0-2) /HPF U Epithel Cells (Auto) (FEW) /HPF Urine Bacteria (Auto) Urine RBC (0-5) Hao/ul Ur Culture Indicated? Urine Glucose (NEGATIVE) mg/dL Urine Opiates Level (NEGATIVE) Ur Methadone (NEGATIVE) Urine Barbiturates (NEGATIVE) Ur Phencyclidine (PCP) (NEGATIVE) Urine Amphetamine (NEGATIVE) U Benzodiazepine Level (NEGATIVE) Urine Cocaine (NEGATIVE) Urine Marijuana (THC) (NEGATIVE) Ethyl Alcohol (0-10) mg/dL Influenza Type A Ag (NEGATIVE) Influenza Type B Ag (NEGATIVE) RSV (PCR) (Negative) SARS-CoV-2 (PCR) (NEGATIVE) Accuchecks Date 02/09/22 Date 02/08/22 Time 08:18 Time 18:10 - Radiology Impressions Radiology Exams & Impressions: Radiology Procedures Category Date Time Status HEAD WITHOUT CONTRAST [CT] Stat Exams 02/08/22 18:30 Completed - Other Procedures and Tests Respiratory Therapy 02/08/22 23:03 Respiratory Therapy Assessment DAILY 02/10/22 05:00 EKG ROUTINE 02/11/22 05:00 EKG ROUTINE Assessment/Plan (1) TIA (transient ischemic attack) Current Visit: Yes Status: Acute Assessment & Plan: discussed that having speech issues and left hemiplegia is a very unusual vascular distribution and highly unlikely that she has language center located in the right hemisphere which would affect her left side. in any event she is already on asiprin and plavix for her PAD along with crestor, bp is well controlled and there is no other recommendation other than tight control of her diabetes and risk factors. patient voices understanding. Code(s): G45.9 - TRANSIENT CEREBRAL ISCHEMIC ATTACK, UNSPECIFIED (2) Sinusitis Current Visit: Yes Status: Acute Code(s): J32.9 - CHRONIC SINUSITIS, UNSPECIFIED (3) COPD (chronic obstructive pulmonary disease) Current Visit: No Status: Chronic (4) Diabetes type 2, controlled Current Visit: No Status: Chronic Qualifiers: Code(s): E11.9 - TYPE 2 DIABETES MELLITUS WITHOUT COMPLICATIONS Hospital Summary - Vitals & Intake/Output Vital Signs: Vital Signs Temperature 98.5 F 02/09/22 08:00 Pulse Rate 72 02/09/22 08:00 Respiratory Rate 14 02/09/22 08:00 Blood Pressure 113/55 02/09/22 08:00 O2 Sat by Pulse Oximetry 90 L 02/09/22 08:00 Intake & Output: Intake & Output 02/06/22 02/07/22 02/08/22 02/09/22 11:59 11:59 11:59 11:59 Intake Total 1747 Output Total 450 Balance 1297 Weight 89.1 kg - Lab Result Diagrams: 02/08/22 18:00 02/08/22 18:00 Lab Results-Last 24 Hrs: Lab Results-Last 24 Hours 02/08/22 02/08/22 02/08/22 Range/Units 18:00 18:00 18:00 WBC 9.7 (4.0-10.5) x10^3/uL RBC 6.81 H (4.1-5.4) x10^6/uL Hgb 13.1 (12.0-16.0) g/dL Hct 43.5 (35-47) % MCV 63.9 L (78-100) fL MCH 19.2 L (26-32) pg MCHC 30.1 L (32-36) g/dL RDW 19.9 H (11.5-14.0) % Plt Count 269 (150-450) x10^3/uL MPV 9.7 (7.5-11.0) fL Segmented Neutrophils 60 (36.0-66.0) % Lymphocytes (Manual) 23 L (24-44) % Monocytes (Manual) 13 H (0.0-12.0) % Eosinophils (Manual) 3 (0.00-3.0) % Basophils (Manual) 1 (0.0-1.0) % Platelet Estimate NORMAL (NORMAL) RBC Morphology ABNORMAL Polychromasia 1+ Poikilocytosis 2+ Anisocytosis 3+ Microcytosis 2+ Schistocytes 1+ Smear Path Review Pending Sodium 139 (137-145) mmol/L Potassium 3.8 (3.5-5.1) mmol/L Chloride 101 (98-107) mmol/L Carbon Dioxide 31 H (22-30) mmol/L Anion Gap 11.4 (5-15) MEQ/L BUN 15 (7-17) mg/dL Creatinine 0.70 (0.52-1.04) mg/dL Estimated GFR > 60.0 ML/MIN Glucose 96 (74-106) mg/dL POC Glucometer (74 to 106) mg/dL Calcium 9.9 (8.4-10.2) mg/dL Magnesium 2.3 (1.6-2.3) mg/dL Total Bilirubin 0.70 (0.2-1.3) mg/dL AST 31 (14-36) U/L ALT 32 (0-35) U/L Alkaline Phosphatase 92 (38-126) U/L Troponin I < 0.012 (0.000-0.034) ng/mL Serum Total Protein 8.3 H (6.3-8.2) g/dL Albumin 4.8 (3.5-5.0) g/dL Triglycerides (30-150) mg/dL Cholesterol (50-200) mg/dL LDL Cholesterol (30-100) mg/dL HDL Cholesterol (40-60) mg/dL Heart Disease Risk Ratio Urinalys Dipstick Clnc Urine Color (YELLOW) Urine Appearance (CLEAR) Urine pH (5-6) Ur Specific [place] (1.005-1.025) POC Urine Protein Conf (Negative) Urine Ketones (NEGATIVE) Urine Nitrite (NEGATIVE) Urine Bilirubin (NEGATIVE) Urine Urobilinogen (0-1) mg/dL Urine Leukocytes (NEGATIVE) Urine WBC (Auto) (0-5) /HPF Urine RBC (Auto) (0-2) /HPF U Epithel Cells (Auto) (FEW) /HPF Urine Bacteria (Auto) Urine RBC (0-5) Hao/ul Ur Culture Indicated? Urine Glucose (NEGATIVE) mg/dL Urine Opiates Level (NEGATIVE) Ur Methadone (NEGATIVE) Urine Barbiturates (NEGATIVE) Ur Phencyclidine (PCP) (NEGATIVE) Urine Amphetamine (NEGATIVE) U Benzodiazepine Level (NEGATIVE) Urine Cocaine (NEGATIVE) Urine Marijuana (THC) (NEGATIVE) Ethyl Alcohol < 10 (0-10) mg/dL Influenza Type A Ag (NEGATIVE) Influenza Type B Ag (NEGATIVE) RSV (PCR) (Negative) SARS-CoV-2 (PCR) (NEGATIVE) 02/08/22 02/08/22 02/08/22 Range/Units 18:45 19:09 19:09 WBC (4.0-10.5) x10^3/uL RBC (4.1-5.4) x10^6/uL Hgb (12.0-16.0) g/dL Hct (35-47) % MCV (78-100) fL MCH (26-32) pg MCHC (32-36) g/dL RDW (11.5-14.0) % Plt Count (150-450) x10^3/uL MPV (7.5-11.0) fL Segmented Neutrophils (36.0-66.0) % Lymphocytes (Manual) (24-44) % Monocytes (Manual) (0.0-12.0) % Eosinophils (Manual) (0.00-3.0) % Basophils (Manual) (0.0-1.0) % Platelet Estimate (NORMAL) RBC Morphology Polychromasia Poikilocytosis Anisocytosis Microcytosis Schistocytes Smear Path Review Sodium (137-145) mmol/L Potassium (3.5-5.1) mmol/L Chloride (98-107) mmol/L Carbon Dioxide (22-30) mmol/L Anion Gap (5-15) MEQ/L BUN (7-17) mg/dL Creatinine (0.52-1.04) mg/dL Estimated GFR ML/MIN Glucose (74-106) mg/dL POC Glucometer (74 to 106) mg/dL Calcium (8.4-10.2) mg/dL Magnesium (1.6-2.3) mg/dL Total Bilirubin (0.2-1.3) mg/dL AST (14-36) U/L ALT (0-35) U/L Alkaline Phosphatase (38-126) U/L Troponin I (0.000-0.034) ng/mL Serum Total Protein (6.3-8.2) g/dL Albumin (3.5-5.0) g/dL Triglycerides (30-150) mg/dL Cholesterol (50-200) mg/dL LDL Cholesterol (30-100) mg/dL HDL Cholesterol (40-60) mg/dL Heart Disease Risk Ratio Urinalys Dipstick Clnc MAIN LAB Urine Color YELLOW (YELLOW) Urine Appearance CLEAR (CLEAR) Urine pH 7.0 (5-6) Ur Specific [place] 1.015 (1.005-1.025) POC Urine Protein Conf NEGATIVE (Negative) Urine Ketones NEGATIVE (NEGATIVE) Urine Nitrite NEGATIVE (NEGATIVE) Urine Bilirubin NEGATIVE (NEGATIVE) Urine Urobilinogen 1 (0-1) mg/dL Urine Leukocytes NEGATIVE (NEGATIVE) Urine WBC (Auto) NONE (0-5) /HPF Urine RBC (Auto) NONE (0-2) /HPF U Epithel Cells (Auto) RARE (FEW) /HPF Urine Bacteria (Auto) Not Reportable Urine RBC NEGATIVE (0-5) Hao/ul Ur Culture Indicated? NO Urine Glucose 500 (NEGATIVE) mg/dL Urine Opiates Level NEGATIVE (NEGATIVE) Ur Methadone NEGATIVE (NEGATIVE) Urine Barbiturates NEGATIVE (NEGATIVE) Ur Phencyclidine (PCP) NEGATIVE (NEGATIVE) Urine Amphetamine NEGATIVE (NEGATIVE) U Benzodiazepine Level NEGATIVE (NEGATIVE) Urine Cocaine NEGATIVE (NEGATIVE) Urine Marijuana (THC) NEGATIVE (NEGATIVE) Ethyl Alcohol (0-10) mg/dL Influenza Type A Ag NEGATIVE (NEGATIVE) Influenza Type B Ag NEGATIVE (NEGATIVE) RSV (PCR) NEGATIVE (Negative) SARS-CoV-2 (PCR) NEGATIVE (NEGATIVE) 02/08/22 02/09/22 02/09/22 Range/Units 22:25 01:56 04:40 WBC (4.0-10.5) x10^3/uL RBC (4.1-5.4) x10^6/uL Hgb (12.0-16.0) g/dL Hct (35-47) % MCV (78-100) fL MCH (26-32) pg MCHC (32-36) g/dL RDW (11.5-14.0) % Plt Count (150-450) x10^3/uL MPV (7.5-11.0) fL Segmented Neutrophils (36.0-66.0) % Lymphocytes (Manual) (24-44) % Monocytes (Manual) (0.0-12.0) % Eosinophils (Manual) (0.00-3.0) % Basophils (Manual) (0.0-1.0) % Platelet Estimate (NORMAL) RBC Morphology Polychromasia Poikilocytosis Anisocytosis Microcytosis Schistocytes Smear Path Review Sodium (137-145) mmol/L Potassium (3.5-5.1) mmol/L Chloride (98-107) mmol/L Carbon Dioxide (22-30) mmol/L Anion Gap (5-15) MEQ/L BUN (7-17) mg/dL Creatinine (0.52-1.04) mg/dL Estimated GFR ML/MIN Glucose (74-106) mg/dL POC Glucometer (74 to 106) mg/dL Calcium (8.4-10.2) mg/dL Magnesium (1.6-2.3) mg/dL Total Bilirubin (0.2-1.3) mg/dL AST (14-36) U/L ALT (0-35) U/L Alkaline Phosphatase (38-126) U/L Troponin I < 0.012 < 0.012 (0.000-0.034) ng/mL Serum Total Protein (6.3-8.2) g/dL Albumin (3.5-5.0) g/dL Triglycerides 214 H (30-150) mg/dL Cholesterol 119 (50-200) mg/dL LDL Cholesterol 60 (30-100) mg/dL HDL Cholesterol 29 L (40-60) mg/dL Heart Disease Risk Ratio 4.2 Urinalys Dipstick Clnc Urine Color (YELLOW) Urine Appearance (CLEAR) Urine pH (5-6) Ur Specific [place] (1.005-1.025) POC Urine Protein Conf (Negative) Urine Ketones (NEGATIVE) Urine Nitrite (NEGATIVE) Urine Bilirubin (NEGATIVE) Urine Urobilinogen (0-1) mg/dL Urine Leukocytes (NEGATIVE) Urine WBC (Auto) (0-5) /HPF Urine RBC (Auto) (0-2) /HPF U Epithel Cells (Auto) (FEW) /HPF Urine Bacteria (Auto) Urine RBC (0-5) Hao/ul Ur Culture Indicated? Urine Glucose (NEGATIVE) mg/dL Urine Opiates Level (NEGATIVE) Ur Methadone (NEGATIVE) Urine Barbiturates (NEGATIVE) Ur Phencyclidine (PCP) (NEGATIVE) Urine Amphetamine (NEGATIVE) U Benzodiazepine Level (NEGATIVE) Urine Cocaine (NEGATIVE) Urine Marijuana (THC) (NEGATIVE) Ethyl Alcohol (0-10) mg/dL Influenza Type A Ag (NEGATIVE) Influenza Type B Ag (NEGATIVE) RSV (PCR) (Negative) SARS-CoV-2 (PCR) (NEGATIVE) 02/09/22 02/09/22 Range/Units 04:40 07:49 WBC (4.0-10.5) x10^3/uL RBC (4.1-5.4) x10^6/uL Hgb (12.0-16.0) g/dL Hct (35-47) % MCV (78-100) fL MCH (26-32) pg MCHC (32-36) g/dL RDW (11.5-14.0) % Plt Count (150-450) x10^3/uL MPV (7.5-11.0) fL Segmented Neutrophils (36.0-66.0) % Lymphocytes (Manual) (24-44) % Monocytes (Manual) (0.0-12.0) % Eosinophils (Manual) (0.00-3.0) % Basophils (Manual) (0.0-1.0) % Platelet Estimate (NORMAL) RBC Morphology Polychromasia Poikilocytosis Anisocytosis Microcytosis Schistocytes Smear Path Review Sodium (137-145) mmol/L Potassium (3.5-5.1) mmol/L Chloride (98-107) mmol/L Carbon Dioxide (22-30) mmol/L Anion Gap (5-15) MEQ/L BUN (7-17) mg/dL Creatinine (0.52-1.04) mg/dL Estimated GFR ML/MIN Glucose (74-106) mg/dL POC Glucometer 123 H (74 to 106) mg/dL Calcium (8.4-10.2) mg/dL Magnesium (1.6-2.3) mg/dL Total Bilirubin (0.2-1.3) mg/dL AST (14-36) U/L ALT (0-35) U/L Alkaline Phosphatase (38-126) U/L Troponin I < 0.012 (0.000-0.034) ng/mL Serum Total Protein (6.3-8.2) g/dL Albumin (3.5-5.0) g/dL Triglycerides (30-150) mg/dL Cholesterol (50-200) mg/dL LDL Cholesterol (30-100) mg/dL HDL Cholesterol (40-60) mg/dL Heart Disease Risk Ratio Urinalys Dipstick Clnc Urine Color (YELLOW) Urine Appearance (CLEAR) Urine pH (5-6) Ur Specific [place] (1.005-1.025) POC Urine Protein Conf (Negative) Urine Ketones (NEGATIVE) Urine Nitrite (NEGATIVE) Urine Bilirubin (NEGATIVE) Urine Urobilinogen (0-1) mg/dL Urine Leukocytes (NEGATIVE) Urine WBC (Auto) (0-5) /HPF Urine RBC (Auto) (0-2) /HPF U Epithel Cells (Auto) (FEW) /HPF Urine Bacteria (Auto) Urine RBC (0-5) Hao/ul Ur Culture Indicated? Urine Glucose (NEGATIVE) mg/dL Urine Opiates Level (NEGATIVE) Ur Methadone (NEGATIVE) Urine Barbiturates (NEGATIVE) Ur Phencyclidine (PCP) (NEGATIVE) Urine Amphetamine (NEGATIVE) U Benzodiazepine Level (NEGATIVE) Urine Cocaine (NEGATIVE) Urine Marijuana (THC) (NEGATIVE) Ethyl Alcohol (0-10) mg/dL Influenza Type A Ag (NEGATIVE) Influenza Type B Ag (NEGATIVE) RSV (PCR) (Negative) SARS-CoV-2 (PCR) (NEGATIVE) Micro Results-Entire Visit: Accuchecks Date 02/09/22 Date 02/08/22 Time 08:18 Time 18:10 - Radiology Exams Ordered Rad Exams-Entire Visit: Radiology Procedures Category Date Time Status HEAD WITHOUT CONTRAST [CT] Stat Exams 02/08/22 18:30 Completed - Procedures and Test Procedures and Tests throughout Hospitalization: Therapy Orders & Screens 02/08/22 21:21 EKG Q8HX2,QAMX3,PRN Comment: 02/08/22 23:03 Respiratory Therapy Assessment DAILY Comment: Diagnosis: TIA 02/09/22 02:00 EKG ROUTINE Comment: Diagnosis: TIA 02/10/22 05:00 EKG ROUTINE Comment: Diagnosis: TIA 02/11/22 05:00 EKG ROUTINE Comment: Diagnosis: TIA - Discharge Disposition: Home, Self-Care Condition: Stable Prescriptions: New Cefdinir [Omnicef 300 mg] 300 mg PO BID #14 cap Continue Potassium Chloride 8 meq PO BID Insulin Glargine,Hum.rec.anlog [Lantus Solostar] 42 unit SQ DAILY Furosemide 40 mg [Lasix 40 MG] 30 mg PO BID Albuterol 2.5 mg/3 ml Neb [Proventil 2.5 mg/3 ml Neb] 2.5 mg IH Q4- 6HPRN PRN PRN Reason: Shortness Of Breath/Wheezing Rosuvastatin Calcium 20 mg PO UD Ezetimibe 10 mg PO DAILY Clopidogrel Bisulfate [Clopidogrel] 75 mg PO DAILY Fluticasone Propion/Salmeterol [Wixela 250-50 Inhub] 1 inh PO BID Aspirin EC 81 mg [Ecotrin 81 mg] 81 mg PO DAILY Apremilast [Otezla] 30 mg PO BID Multivitamin [Multi-Vitamin Daily] 1 tab PO DAILY Empagliflozin [Jardiance] 25 mg PO DAILY Triamcinolone Acetonide 0.1% [Kenalog 0.1% Ointment] 1 applic TOP BID Follow up with: GLENROY CHOI MD [Primary Care Provider] -
[2022-02-09] MEDS ORDERED: VENTOLIN COMMON CANISTER IH SCH (10:00)
[2022-02-09] MEDS ORDERED: ECOTRIN 81 MG PO SCH (11:30)
== END 2022-02-09 09:49 | disposition home or self-care (01) ==
LOC: ED 17:59 → MED SURG 21:12
PROVIDERS: ADMIT Family Medicine; ATTEND General Practice
DX: G45.9 Transient cerebral ischemic attack, unspecified (principal); J32.9 Chronic sinusitis, unspecified; J44.9 Chronic obstructive pulmonary disease, unspecified; E11.9 Type 2 diabetes mellitus without complications; E78.5 Hyperlipidemia, unspecified; I10 Essential (primary) hypertension; R25.1 Tremor, unspecified; Z79.899 Other long term (current) drug therapy; Z20.828 Contact with and (suspected) exposure to other viral communicable diseases; Z72.0 Tobacco use
CPT/HCPCS: 0241U; 36000; 36415; 70450; 80053; 80061; 80307; 81015; 82947; 83721; 83735; 84484; 85025; 93005; 93041; 94640; 94760; 96360; 96361; 99285; G0480; 93268; J7609; A9270-GY; G0378